=== PATIENT | male | born 1965 | race American Indian/Alaskan Native ===

== ENCOUNTER 2017-03-27 16:05 | Emergency (ER) | payer MEDICAID, MEDICARE, OTHER ==
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
[2017-03-27] MEDS ORDERED: HYDROmorphone 0.5 MG/0.5 ML Syringe IVPUSH ONE ×2 (16:45→18:31)
[2017-03-27] MEDS ORDERED: Sodium Chloride 0.9% 1,000 ML IV ONE ×2 (17:09→19:15)
[2017-03-27] MEDS ORDERED: Ondansetron 4 MG/2 ML SDV IVPUSH ONE (17:14)
[2017-03-27] MEDS ORDERED: Lidocaine 1% PF 2 ML SDV INJECT ONE (17:16)
[2017-03-27 19:26] VITALS: BP 112/67
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
== END 2017-03-27 19:40 ==
LOC: JP.ED 16:05
DX: S06.6X5A Traumatic subarachnoid hemorrhage with loss of consciousness greater than 24 hours with return to pre-existing conscious level, initial encounter (principal); S12.9XXA Fracture of neck, unspecified, initial encounter; S01.01XA Laceration without foreign body of scalp, initial encounter; S01.21XA Laceration without foreign body of nose, initial encounter; I10 Essential (primary) hypertension; Z90.49 Acquired absence of other specified parts of digestive tract; Z79.899 Other long term (current) drug therapy; V49.50XA Passenger injured in collision with unspecified motor vehicles in traffic accident, initial encounter
CPT/HCPCS: 12001; 12011; 70450; 72125; 73030; 96361; 96374; 96375; 96376; 99285; J1170; J2405; J7040

== ENCOUNTER 2017-04-24 20:32 | Emergency (ER) | payer MEDICARE, MEDICAID ==
[2017-04-24] MEDS ORDERED: Sodium Chloride 0.9% 10 ML Syringe FLUSH PRN (22:07)
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
[2017-04-24] MEDS: Sodium Chloride 0.9% 10 ML Syringe FLUSH PRN ×2 (23:24→23:32)
[2017-04-24] MEDS ORDERED: Iopamidol 612 MG/ML 150 ML Bottle IV SCH (23:30)
[2017-04-25] MEDS ORDERED: Magnesium Citrate Solution 296 ML Bottle PO ONE ×2 (00:35→00:46)
[2017-04-25 01:58] VITALS: BP 148/96
== END 2017-04-25 02:01 | disposition home or self-care (01) ==
LOC: JP.ED 20:32
DX: R18.8 Other ascites (principal); I10 Essential (primary) hypertension; Z86.69 Personal history of other diseases of the nervous system and sense organs; Z79.899 Other long term (current) drug therapy; Z90.49 Acquired absence of other specified parts of digestive tract
CPT/HCPCS: 36415; 74177; 80053; 81001; 85025; 86140; 99284; J7030; J7050; 99283

== ENCOUNTER 2017-04-26 06:53 | Day surgery (SDC) | payer MEDICAID, MEDICARE, OTHER ==
[2017-04-26 10:54] VITALS: BP 119/67
--- NOTE | 2017-05-04 18:41 | OR ---
DATE OF PROCEDURE: 04/26/2017 PREOPERATIVE DIAGNOSIS: Tense ascites. POSTOPERATIVE DIAGNOSIS: Tense ascites. PROCEDURE: Ultrasound-guided paracentesis ([id number]). ANESTHESIA: Local. CHERRY SORTER: FATUMA Castano. INDICATION FOR PROCEDURE: This is a 52-year-old male with some ongoing liver disease. He does appear to be fairly stable in this regard, although he had presented with quite a bit in the way of ascites. At this point, the plan is to proceed with ultrasound-guided thoracentesis. Potential risks of the procedure including bleeding, infection, injury to underlying viscera were reviewed, and the patient wishes to proceed. DESCRIPTION OF PROCEDURE: The patient was taken to the operating room and placed in a supine position. The site in the left mid abdomen was marked by ultrasound and that area was then prepped and draped, anesthetized with 1% lidocaine, and the paracentesis catheter was placed without difficulty, 4500 mL of clear serous nonbloody fluid was removed. Upon removal of that volume, a pursestring stitch of 2-0 Prolene stitch was placed around the puncture site, and the catheter was withdrawn. The suture was pulled up and tied and the procedure was then concluded. Fluid will be sent for cytology as well as for workup for microbiology, chemistries, and cell count differential. We will see the patient back in 1 week for suture removal. We discussed treatment options should this recur fairly rapidly. The patient's overall performance status is such that a peritoneal venous shunt may be a better [facility] treatment to prevent the risk of paracentesis as well as some attendant loss of protein and potential hepatorenal syndrome development due to episodes of dehydration associated with paracentesis. We will see the patient back in 1 week for recheck. Bimal Kramer MD /[id number]
== END 2017-04-26 10:00 | disposition home or self-care (01) ==
LOC: JP.SDS 06:53 → JP.ST 06:53 → JP.SDS 10:00 → EDSTATUS 13:00
PROVIDERS: ATTEND Surgery
DX: R18.8 Other ascites (principal); I10 Essential (primary) hypertension; E66.9 Obesity, unspecified; K21.9 Gastro-esophageal reflux disease without esophagitis; Z98.84 Bariatric surgery status; Z68.30 Body mass index [BMI] 30.0-30.9, adult; Z98.890 Other specified postprocedural states; Z90.49 Acquired absence of other specified parts of digestive tract
CPT/HCPCS: 36415; 49083; 82150; 82945; 83615; 83986; 84157; 87015; 87070; 87102; 87116; 87205; 87206; 88305; 88341; 88342; 89050

== ENCOUNTER 2017-05-09 15:59 | Inpatient (IN) | payer MEDICARE, MEDICAID ==
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
[2017-05-09] MEDS ORDERED: Iopamidol 612 MG/ML 150 ML Bottle IV PRN (18:43)
[2017-05-09] MEDS ORDERED: Ondansetron 4 MG/2 ML SDV IV PRN (20:56)
[2017-05-09] MEDS ORDERED: Furosemide 40 MG/4 ML VIAL IVPUSH ONE (21:10)
[2017-05-09] MEDS: oxyCODONE 5 MG Tab PO PRN (23:09)
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
[2017-05-10] MEDS ORDERED: Lactated Ringers 500 ML IV SCH (07:00)
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
[2017-05-10] MEDS: Pantoprazole 40 MG Vial IVPUSH SCH ×2 (08:22→19:24)
[2017-05-10] MEDS: Lisinopril 5 MG Tab PO SCH (08:25)
[2017-05-10] MEDS: Potassium Chloride 20 MEQ, Lidocaine 1% 2 ML in Sodium Chloride 0.9% 100 ML IV SCH ×3 (09:00→13:19)
[2017-05-10] MEDS: Simethicone 80 MG Tab.Chew PO PRN ×2 (14:55→19:24)
[2017-05-10] MEDS: oxyCODONE 5 MG Tab PO PRN ×2 (19:32→23:32)
[2017-05-11] MEDS: oxyCODONE 5 MG Tab PO PRN (03:38)
[2017-05-11] MEDS ORDERED: Lactated Ringers 1,000 ML IV SCH (06:45)
[2017-05-11] MEDS: Pantoprazole 40 MG Vial IVPUSH SCH ×2 (08:01→20:36)
[2017-05-11] MEDS: Lisinopril 5 MG Tab PO SCH (08:11)
[2017-05-11] MEDS ORDERED: ceFAZolin 1 GM Vial ONE (10:51)
[2017-05-11] MEDS ORDERED: Linezolid 600 MG in Premix Bag 1 BAG IV ONE (13:00)
[2017-05-11] MEDS ORDERED: Propofol 200 MG/20 ML SDV ONE (13:08)
[2017-05-11] MEDS ORDERED: Succinylcholine 200 MG/10 ML MDV ONE (13:08)
[2017-05-11] MEDS ORDERED: Dexamethasone 4 MG/ML SDV ONE (13:08)
[2017-05-11] MEDS ORDERED: Rocuronium 50 MG/5 ML Vial ONE (13:08)
[2017-05-11] MEDS ORDERED: Ondansetron 4 MG/2 ML SDV ONE (13:08)
[2017-05-11] MEDS ORDERED: Neostigmine Methylsulfate 1 MG/ML 5 ML Syringe ONE (13:08)
[2017-05-11] MEDS ORDERED: Glycopyrrolate 0.2 MG/ML 5 ML MDV ONE (13:08)
[2017-05-11] MEDS ORDERED: ePHEDrine 50 MG/ML SDV ONE (13:53)
[2017-05-11] MEDS ORDERED: Naloxone 0.4 MG/ML SDV IVPUSH PRN (14:15)
[2017-05-11] MEDS ORDERED: HYDROmorphone/Normal Saline 15 MG/30 ML PCA IV PRN (14:15)
[2017-05-11] MEDS ORDERED: Naloxone 0.4 MG/ML SDV IV PRN (14:17)
[2017-05-11] MEDS ORDERED: Linezolid 200 MG/100 ML Bag IRR ONE (14:38)
[2017-05-11] MEDS: Dextrose 5%-Lactated Ringers 1,000 ML IV SCH (17:47)
[2017-05-11] MEDS ORDERED: Furosemide 20 MG/2 ML VIAL IVPUSH ONE (18:00)
[2017-05-11] MEDS: Linezolid 600 MG in Premix Bag 1 BAG IV SCH (22:15)
[2017-05-12] MEDS: Dextrose 5%-Lactated Ringers 1,000 ML IV SCH (05:00)
[2017-05-12] MEDS ORDERED: Dextrose 5%-Lactated Ringers 1,000 ML IV SCH (07:29)
--- NOTE | 2017-05-12 08:57 | PN ---
DATE OF SERVICE: 05/12/2017 SUBJECTIVE: Yvon is postop day 1. He reports he is feeling better. He reports very little pain. Vital signs have been stable. He has been up ambulating. Reilly catheter has put out 6765 mL REVIEW OF SYSTEMS: Remainder of review of systems negative for any pertinent positives and negatives. OBJECTIVE: GENERAL: Yvon Beach is a pleasant 52-year-old male. VITAL SIGNS: TPR is 98.8, 100, 16, blood pressure 108/69. HEENT: Negative. NECK:: Supple. HEART: Regular rate and rhythm. LUNGS: Clear. ABDOMEN: [place] shunt was pushed by Bimal Kramer MD. He also showed Yvon how to push it and where it was. Abdomen has improved. It is soft, less tender. EXTREMITIES: Without peripheral edema and SCDs are on. ASSESSMENT: Placement of [place] peripheral venous shunt for tense ascites, refractory to medical management. Date of surgery 05/11/2017, Bimal Kramer MD. PLAN: 1. Push [place] shunt 6 times in a row q.i.d. 2. Step 4 gastric bypass diet. 3. Decrease IV to TKO. 4. Saline lock IV if oral intake adequate. 5. Discontinue BALE STACKER and continuous pulse ox. 6. Dilaudid 2 mg 1 to 2 every 4 hours p.r.n. pain. 7. Discontinue Reilly catheter in a.m. 05/13/2017 at 0500 hours. 8. Check CBC, CMP, and mag phos in a.m. 9. Reilly catheter was left in for accurate measurement of output. Юлия Clayton PA-C /[id number]
[2017-05-12] MEDS: Lisinopril 5 MG Tab PO SCH (08:59)
[2017-05-12] MEDS: Pantoprazole 40 MG Vial IVPUSH SCH ×2 (08:59→20:16)
[2017-05-12] MEDS: Linezolid 600 MG in Premix Bag 1 BAG IV SCH ×2 (11:45→22:30)
--- NOTE | 2017-05-12 12:24 | PN ---
DATE OF SERVICE: 05/11/2017 The patient has been afebrile with stable vital signs. The PT and PTT were checked and were within normal limits. We will plan to proceed with repair of a venous shunt insertion later today. Of note, his liver function tests have improved somewhat with bilirubin decreasing during the hospitalization. Bimal Kramer MD /[id number]
--- NOTE | 2017-05-12 16:51 | OR ---
DATE OF PROCEDURE: 05/11/2017 PREOPERATIVE DIAGNOSIS: Recurrent tense ascites, refractory to medical management. POSTOPERATIVE DIAGNOSIS: Recurrent tense ascites, refractory to medical management. PROCEDURE: Placement of [place] peritoneal venous shunt ([id number]). ANESTHESIA: General. INDICATION FOR PROCEDURE: This is a 52-year-old presenting with a markedly rapidly recurring tense ascites. This has been not manageable by medical management and plan to proceed with a peritoneal venous shunt. From the other considerations, the patient appears to be reasonably stable with his hepatic function improving somewhat during hospitalization with rehydration. Plan is to proceed with a peritoneal venous shunt. Potential risk including bleeding, infection, injury to underlying viscera, possible infection or occlusion of the shunt were all reviewed, and the patient wishes to proceed. DETAILS OF PROCEDURE: The patient was taken to the operating room and placed in the supine position. After general endotracheal anesthesia was induced, he was converted to a lithotomy position. Reilly catheter was inserted and the abdomen, chest and neck were then prepped and draped. Initially, the left internal jugular vein was identified by ultrasound and using ultrasound guidance, this was cannulated and guidewire was passed from there and inflated into the superior vena cava and atrial junction. Following this, a transverse incision along the costal margin in the midclavicular line was made and carried down through the skin and subcutaneous tissue. Initially, the needle was passed into the peritoneal cavity. Ultrasound showed this area to be free of any adhesions but for some reason no fluid could be aspirated. Given this, the incision was then continued downward until the peritoneal cavity was entered through an opening allowing the small finger of the surgeon to enter the peritoneal cavity. Free fluid was noted at this point and at that point a 16-Citizen [place] introducer was passed and directed inferiorly. Through this a guidewire was then similarly passed using fluoroscopic surveillance. The [place] shunt was then placed over the guidewire through the introducer and the latter 2 were then removed leaving the catheter in place. This appeared to curve backward somewhere towards the liver, but in a space likely draining the ascitic fluid very satisfactorily. At this point, the pursestring stitch x2 was placed around the point of entrance into the abdomen which occluded any leak at this point. Using a blunt dissection, then a space over the ribs superior to the initial incision was made and the [place] shunt was then tunneled superiorly, incision roughly handsbreadth below the clavicle as necessary and between those 2 incisions the catheter was brought out through the internal jugular incision site. At that point 2 L of ascitic fluid was removed so as to minimize immediate postoperative complications related to fluid overload and/or DIC. After 2 L removed, there was trickle through the [place] shunt. Using introducer and peel-away catheter over the guidewire placed in jugular vein, the venous portion of the catheter was placed without difficulty. This had been measured as such that the tip would be in the area of the superior vena cava, right atrial junction and fluoroscopy confirmed that location noted to be achieved at the final placement. The incisions were then closed with a series of 3-0, 4-0, 5-0 Vicryl stitches and Dermabond applied. The point of the pump over the [place] shunt was marked and this was confirmed to as well as with fluid rapidly after release of the thumb over the pump. The patient was taken to the recovery room in satisfactory condition. There were no evident complications. Bimal Kramer MD /[id number]
[2017-05-12] MEDS: diphenhydrAMINE 25 MG Cap PO PRN (20:50)
[2017-05-13] MEDS: Pantoprazole 40 MG Vial IVPUSH SCH ×2 (08:02→20:28)
[2017-05-13] MEDS: HYDROmorphone 2 MG Tab PO PRN ×3 (08:11→21:41)
[2017-05-13] MEDS: Lisinopril 5 MG Tab PO SCH (09:43)
[2017-05-13] MEDS: Potassium Phosphates 20 MMOLE in Sodium Chloride 0.9% 250 ML IV SCH ×3 (10:04→16:25)
--- NOTE | 2017-05-13 10:05 | PN ---
DATE OF SERVICE: 05/13/2017 SUBJECTIVE: Yvon reports his pain is controlled. He states that he is feeling better. Staff has taught him how to use his shunt. Vital signs have been stable. REVIEW OF SYSTEMS: Remainder of review of systems negative for any pertinent positives and negatives. His Reilly catheter was removed early this morning and he has not voided at time of rounds. OBJECTIVE: GENERAL: Yvon Beach is a 52-year-old male. VITAL SIGNS: TPR is 98.6, 93, 18, blood pressure 111/65. HEENT: Negative. NECK: Supple. HEART: Regular rate and rhythm. LUNGS: Clear. ABDOMEN: Soft, very minimally tender. EXTREMITIES: SCDs are on and there is no peripheral edema. ASSESSMENT: Placement of [place] peritoneovenous shunt for recurrent tense ascites, refractory to medical management. PLAN: 1. K-Phos 60 millimoles IV today. 2. Check BMP and phos in the a.m. Continue the patient education in regard to [place] peritoneovenous shunt. 3. Planned discharge in the a.m. Юлия Clayton PA-C /[id number]
[2017-05-13] MEDS: Linezolid 600 MG in Premix Bag 1 BAG IV SCH (11:07)
[2017-05-13] MEDS: diphenhydrAMINE 25 MG Cap PO PRN (21:42)
[2017-05-14] MEDS: Pantoprazole 40 MG Vial IVPUSH SCH (07:24)
[2017-05-14 08:03] VITALS: BP 111/65
[2017-05-14] MEDS: Lisinopril 5 MG Tab PO SCH (08:32)
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
== END 2017-05-14 10:45 | disposition home or self-care (01) | DRG 407 ==
LOC: JP.ED 15:59 → UNDOADMOB 21:11 → JP.MS 21:11 → OBSVTOIN 05-10 07:00 → INTOOBSV 05-10 07:00 → OBSVTOIN 05-11 10:58 → JP.MS 05-11 10:58 → UNDODISIN 05-14 10:45
PROVIDERS: ADMIT Family Medicine; ATTEND Surgery
PROC: 0W1G4JY Bypass Peritoneal Cavity to Lower Vein with Synthetic Substitute, Percutaneous Endoscopic Approach (ICD-10-PCS; principal; 2017-05-11)
DX: K70.31 Alcoholic cirrhosis of liver with ascites (principal); F10.11 Alcohol abuse, in remission; Y90.9 Presence of alcohol in blood, level not specified; I10 Essential (primary) hypertension; R60.1 Generalized edema; D69.6 Thrombocytopenia, unspecified; Z86.79 Personal history of other diseases of the circulatory system; S12.9XXD Fracture of neck, unspecified, subsequent encounter; S42.101D Fracture of unspecified part of scapula, right shoulder, subsequent encounter for fracture with routine healing; S82.891D Other fracture of right lower leg, subsequent encounter for closed fracture with routine healing; S22.009D Unspecified fracture of unspecified thoracic vertebra, subsequent encounter for fracture with routine healing; R14.0 Abdominal distension (gaseous); R10.84 Generalized abdominal pain; V89.2XXD Person injured in unspecified motor-vehicle accident, traffic, subsequent encounter; K21.9 Gastro-esophageal reflux disease without esophagitis; M54.9 Dorsalgia, unspecified; G89.29 Other chronic pain; M19.90 Unspecified osteoarthritis, unspecified site; Z98.1 Arthrodesis status; Z98.84 Bariatric surgery status; H54.7 Unspecified visual loss; F10.10 Alcohol abuse, uncomplicated
CPT/HCPCS: 36415 ×2; 74177; 80048; 80053; 80076; 83690; 83880; 85025; 85027; 85610; 86850; 86900; 86901; 86920; 86922; 96365; 96366; 96375 ×2; 96376; 99285; A9270; G0378; J1940; J7030; 76000; 83735; 84100; 85730; 94762; 96361; 96374; 99284; C9113; J0330; J0690; J1100; J1170; J2020; J2405; J2704; J2710; J3010; J3480; J3490; J7042; J7050

== ENCOUNTER 2017-05-30 08:08 | Emergency (ER) | payer MEDICARE, MEDICAID ==
[2017-05-30 08:32] VITALS: BP 115/85
[2017-05-30] MEDS ORDERED: oxyCODONE 5 MG Tab PO ONE (08:47)
--- NOTE | 2017-05-30 08:54 | EDM.PDOC ---
ED HPI GENERAL MEDICAL PROBLEM - General Chief Complaint: General Stated Complaint: NECK IS SORE AND A WOUND ON NECK Time Seen by Provider: 05/30/17 08:35 Source of Information: Reports: Patient, Old Records, RN History Limitations: Reports: No Limitations - History of Present Illness INITIAL COMMENTS - FREE TEXT/NARRATIVE: 52 yo NA male with recent neck and spine surgery(within the last 2 mos) and who is wearing a neck brace presents with swelling to the back of his neck associated with an increase in pain. Has known liver dz and recent labs also show thrombocytopenia. He denies any recent injury to the neck since his surgery. Has follow up with the surgeon who operated on his spine in 2 days [place], he cannot recall this doctor's name. Has oxycodone left at home. Onset: Gradual Onset Date: 05/29/17 Duration: Hour(s):, Getting Worse Location: Reports: Neck Quality: Reports: Ache, Dull Severity: Moderate Improves with: Reports: None Worsens with: Reports: Other (? 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: Reports: Other (see below) (none) NECK Pain Score (Numeric/FACES): 6 - Related Data Allergies Allergy/AdvReac Type Severity Reaction Status Date / Time No Known Allergies Allergy Verified 05/30/17 08:33 Home Meds: Home Meds Lisinopril 5 mg PO DAILY 08/04/14 [History] Ranitidine [Zantac] 150 mg PO DAILY 04/24/17 [History] oxyCODONE 5 mg PO Q4H PRN #40 tablet 05/14/17 [Rx] traMADol HCl [Tramadol HCl] 50 mg PO Q4HR PRN 05/30/17 [History] Past Medical History HEENT History: Reports: Impaired Vision Other HEENT History: glasses Cardiovascular History: Reports: Hypertension Respiratory History: Reports: None Gastrointestinal History: Reports: Gastritis, GERD Genitourinary History: Reports: Renal Calculus Musculoskeletal History: Reports: Back Pain, Chronic, Fracture, Neck Pain, Chronic, Osteoarthritis, Other (See Below) Other Musculoskeletal History: Crushed disc in lumbar area neck fusion aprox 3 weeks ago. Neurological History: Reports: Brain Injury, Concussion, Head Trauma Psychiatric History: Reports: None Endocrine/Metabolic History: Reports: Obesity/BMI 30+ Hematologic History: Reports: Blood Transfusion(s) Immunologic History: Reports: None Oncologic (Cancer) History: Reports: None Dermatologic History: Reports: None - Infectious Disease History Infectious Disease History: Reports: Chicken Pox - Past Surgical History Head Surgeries/Procedures: Reports: Other (See Below) HEENT Surgical History: Reports: None Cardiovascular Surgical History: Reports: None Respiratory Surgical History: Reports: None GI Surgical History: Reports: Bariatric Procedure, Cholecystectomy, Colonoscopy , EGD, Other (See Below) Other GI Surgeries/Procedures: paracentesis Endocrine Surgical History: Reports: None Neurological Surgical History: Reports: Other (See Below) Other Neurological Surgeries/Procedures: "neck surgery" Other Musculoskeletal Surgeries/Procedures:: Pins in left hip and right wrist Oncologic Surgical History: Reports: None Dermatological Surgical History: Reports: None Social & Family History - Family History Family Medical History: Noncontributory - Tobacco Use Smoking Status *Q: Never Smoker Second Hand Smoke Exposure: Yes - Caffeine Use Caffeine Use: Reports: Soda - Alcohol Use Days Per Week of Alcohol Use: 0 Number of Drinks Per Day: 2 Total Drinks Per Week: 0 - Recreational Drug Use Recreational Drug Use: No ED ROS GENERAL - Review of Systems Review Of Systems: See Below Constitutional: Reports: No Symptoms HEENT: Reports: No Symptoms Respiratory: Reports: No Symptoms Cardiovascular: Reports: No Symptoms Endocrine: Reports: No Symptoms GI/Abdominal: Reports: No Symptoms : Reports: No Symptoms Musculoskeletal: Reports: Neck Pain (posteriorly) Skin: Reports: No Symptoms Neurological: Reports: No Symptoms Psychiatric: Reports: No Symptoms ED EXAM, GENERAL - Physical Exam Exam: See Below Exam Limited By: No Limitations General Appearance: Alert, WD/WN, No Apparent Distress Eye Exam: Bilateral Eye: Normal Inspection Ears: Normal External Exam, Normal Canal, Hearing Grossly Normal Ear Exam: Bilateral Ear: Auricle Normal, Canal Normal Nose: Normal Inspection, Normal Mucosa, No Blood Throat/Mouth: Normal Inspection, Normal Lips, Normal Oropharynx, Normal Voice, No Airway Compromise Head: Atraumatic, Normocephalic Neck: Limited Range of Motion, Other (hematoma to the posterior/base of his neck. Well healed surgical scar from the neck posteriorly down his thoracic spine. Bruising to the upper back below the neck hematoma. ). No: Normal Inspection, Supple, Full Range of Motion, Lymphadenopathy (R), Lymphadenopathy ( L) Respiratory/Chest: No Respiratory Distress, Lungs Clear, Normal Breath Sounds, No Accessory Muscle Use Cardiovascular: Regular Rate, Rhythm GI/Abdominal: Normal Bowel Sounds, Soft, Non-Tender Extremities: Normal Inspection, Normal Range of Motion, Non-Tender, No Pedal Edema Neurological: Alert, Oriented, CN II-XII Intact, Normal Cognition, No Motor/ Sensory Deficits Psychiatric: Normal Affect, Normal Mood Skin Exam: Warm, Dry, Intact, No Rash, Ecchymosis (upper back) Lymphatic: No Adenopathy Course - Vital Signs Last Recorded V/S: Last Vital Signs Temp 36.8 C 05/30/17 08:30 Pulse 98 05/30/17 08:30 Resp 16 05/30/17 08:30 BP 115/85 05/30/17 08:30 Pulse Ox 100 05/30/17 08:30 - Orders/Labs/Meds Labs: Laboratory Tests 05/30/17 05/30/17 Range/Units 08:50 08:50 WBC 12.1 H (4.5-11.0) K/uL RBC 3.40 L (4.30-5.90) M/uL Hgb 10.7 L (12.0-15.0) g/dL Hct 32.5 L (40.0-54.0) % MCV 96 (80-98) fL MCH 32 H (27-31) pg MCHC 33 (32-36) % Plt Count 130 L (150-400) K/uL PT 20.2 H (9.5-12.0) sec INR 1.84 H (0.80-1.20) APTT 41.1 H (27.0-36.0) sec Meds: Medications Discontinued Medications Generic Name Dose Route Start Last Admin Trade Name Freq PRN Reason Stop Dose Admin Oxycodone HCl 5 mg 05/30/17 08:47 05/30/17 08:53 Oxycodone PO 05/30/17 08:48 5 mg ONETIME ONE Administration Departure - Departure Time of Disposition: 09:37 Disposition: Home, Self-Care 01 Condition: Fair Clinical Impression: Hematoma of neck Qualifiers: Encounter type: initial encounter Qualified Code(s): S10.93XA - Contusion of unspecified part of neck, initial encounter - Discharge Information Referrals: Bimal Kramer MD [Primary Care Provider] - Forms: ED Department Discharge
== END 2017-05-30 10:00 | disposition home or self-care (01) ==
LOC: JP.ED 08:08
DX: S10.93XA Contusion of unspecified part of neck, initial encounter (principal); I10 Essential (primary) hypertension; K21.9 Gastro-esophageal reflux disease without esophagitis; Z79.899 Other long term (current) drug therapy; Z98.890 Other specified postprocedural states; Z77.22 Contact with and (suspected) exposure to environmental tobacco smoke (acute) (chronic); X58.XXXA Exposure to other specified factors, initial encounter
CPT/HCPCS: 36415; 85027; 85610; 85730; 99284; A9270; 99283

== ENCOUNTER 2017-06-02 13:48 | Inpatient (IN) | payer MEDICARE, MEDICAID ==
[2017-06-02] MEDS ORDERED: Dextrose 5%-Lactated Ringers 1,000 ML IV SCH (14:30)
[2017-06-02] MEDS: Linezolid 600 MG in Premix Bag 1 BAG IV SCH (15:03)
[2017-06-02] MEDS ORDERED: Lactated Ringers 500 ML IV ONE (15:59)
[2017-06-02] MEDS: Pantoprazole 40 MG Vial IV SCH (16:11)
[2017-06-02] MEDS: Dextrose 5%-Lactated Ringers 1,000 ML IV SCH ×2 (17:11→22:44)
--- NOTE | 2017-06-02 19:39 | PCM.HP ---
H&P History of Present Illness - General Date of Service: 06/02/17 Admit Problem/Dx: Admission Diagnosis/Problem Admission Diagnosis/Problem Wound drainage Source of Information: Patient History Limitations: Reports: Other (weak ) - History of Present Illness Initial Comments - Free Text/Narative: Yvon had a Percutaneous [place] Shunt. He developed a clear drainage from the incision site for about 1 week. His mom is with him today and states that the drainage is going through the dressing, abdominal binder and his clothes about every 2 hours. - Related Data Allergies/Adverse Reactions: Allergies Allergy/AdvReac Type Severity Reaction Status Date / Time No Known Allergies Allergy Verified 05/30/17 08:33 Home Medications: Home Meds Lisinopril 5 mg PO DAILY 08/04/14 [History] Ranitidine [Zantac] 150 mg PO DAILY 04/24/17 [History] oxyCODONE 5 mg PO Q4H PRN #40 tablet 05/14/17 [Rx] traMADol HCl [Tramadol HCl] 50 mg PO Q4HR PRN 05/30/17 [History] Past Medical History HEENT History: Reports: Impaired Vision Other HEENT History: glasses Cardiovascular History: Reports: Hypertension Respiratory History: Reports: None Gastrointestinal History: Reports: Gastritis, GERD Genitourinary History: Reports: Renal Calculus Musculoskeletal History: Reports: Back Pain, Chronic, Fracture, Neck Pain, Chronic, Osteoarthritis, Other (See Below) Other Musculoskeletal History: Crushed disc in lumbar area neck fusion aprox 3 weeks ago. Neurological History: Reports: Brain Injury, Concussion, Head Trauma Psychiatric History: Reports: None Endocrine/Metabolic History: Reports: Obesity/BMI 30+ Hematologic History: Reports: Blood Transfusion(s) Immunologic History: Reports: None Oncologic (Cancer) History: Reports: None Dermatologic History: Reports: None - Infectious Disease History Infectious Disease History: Reports: Chicken Pox - Past Surgical History Head Surgeries/Procedures: Reports: Other (See Below) HEENT Surgical History: Reports: None Cardiovascular Surgical History: Reports: None Respiratory Surgical History: Reports: None GI Surgical History: Reports: Bariatric Procedure, Cholecystectomy, Colonoscopy , EGD, Other (See Below) Other GI Surgeries/Procedures: paracentesis Endocrine Surgical History: Reports: None Neurological Surgical History: Reports: Other (See Below) Other Neurological Surgeries/Procedures: "neck surgery" Other Musculoskeletal Surgeries/Procedures:: Pins in left hip and right wrist Oncologic Surgical History: Reports: None Dermatological Surgical History: Reports: None Social & Family History - Family History Family Medical History: Noncontributory - Tobacco Use Smoking Status *Q: Never Smoker Second Hand Smoke Exposure: No - Caffeine Use Caffeine Use: Reports: Coffee, Soda, Tea - Alcohol Use Days Per Week of Alcohol Use: 0 Number of Drinks Per Day: 2 Total Drinks Per Week: 0 Date of Last Drink: 03/22/17 Time of Last Drink: 21:00 - Recreational Drug Use Recreational Drug Use: No H&P Review of Systems - Review of Systems: Review Of Systems: See Below General: Reports: Weakness, Fatigue, Decreased Appetite HEENT: Reports: No Symptoms Pulmonary: Reports: Shortness of Breath Gastrointestinal: Reports: Abdominal Pain, Decreased Appetite, Distension Genitourinary: Reports: Hematuria Musculoskeletal: Reports: Joint Pain, Muscle Pain Skin: Reports: Bruising (several small purple bruises noted on his extremities. Entire back has a purple bruising. ) Psychiatric: Reports: No Symptoms Neurological: Reports: No Symptoms Hematologic/Lymphatic: Reports: Anemia, Easy Bruising Immunologic: Reports: No Symptoms Exam - Exam Exam: See Below - Vital Signs Vital Signs: Last Vital Signs Temp 96.6 F 06/02/17 18:47 Pulse 103 H 06/02/17 18:47 Resp 18 06/02/17 18:47 BP 80/50 L 06/02/17 18:47 Pulse Ox 97 06/02/17 18:47 Weight: 224 lb 4 oz - Exam Quality Assessment: DVT Prophylaxis General: Alert, Oriented, Cooperative HEENT: PERRLA, Hearing Intact Neck: Other (neck brace on ) Lungs: Clear to Auscultation, Normal Respiratory Effort Cardiovascular: Regular Rate, Regular Rhythm GI/Abdominal Exam: Soft, Distended, Other (open incision 2 inches on left side of abdomen draining clear yellow drainage. ) (Male) Exam: Deferred Rectal (Males) Exam: Deferred Back Exam: Other (entire back has a large purple area of bruising. Small hematoma upper back. ) Extremities: Normal Inspection, Pedal Edema Neuro Extensive - Mental Status: Alert, Oriented x3 Neuro Extensive - Motor, Sensory, Reflexes: CN II-XII Intact, Other (Weak and unsteady ) Psychiatric: Alert - Patient Data Result Diagrams: 06/02/17 19:14 *Q Meaningful Use (ADM) - VTE *Q VTE Criteria *Q: - Stroke *Q Stroke Criteria *Q: - AMI *Q AMI Criteria *Q: Problem List Initiated/Reviewed/Updated: Yes Orders Last 24hrs: Active Orders 24 hr Category Date Time Status Admission Status [Patient Status] [ADT] Routine ADT 06/02/17 13:30 Active Dressing Change [Wound Care] [RC] INTERMITTENT Care 06/02/17 14:45 Active Intake and Output [RC] QSHIFT Care 06/02/17 14:45 Active Up ad Lisa [RC] ASDIRECTED Care 06/02/17 14:37 Active Verify Patient Consent Obtain [RC] ASDIRECTED Care 06/03/17 09:00 Active Vital Signs [RC] Q4H Care 06/02/17 14:37 Active NPO After Midnight [Nothing per Oral After Midnight Diet 06/02/17 Dinner Active Diet] [DIET] Regular Diet [DIET] Diet 06/02/17 Dinner Active CBC W/O DIFF,HEMOGRAM [HEME] Routine Lab 06/03/17 04:00 Ordered COMPREHENSIVE METABOLIC PN,CMP [CHEM] Routine Lab 06/02/17 19:14 Received COMPREHENSIVE METABOLIC PN,CMP [CHEM] Routine Lab 06/03/17 04:00 Ordered CULTURE URINE [RM] Urgent Lab 06/02/17 14:40 Uncollected LACTIC ACID [CHEM] Routine Lab 06/02/17 19:14 Received MAGNESIUM [CHEM] Routine Lab 06/03/17 04:00 Ordered PHOSPHORUS [CHEM] Routine Lab 06/03/17 04:00 Ordered UA W/MICROSCOPIC [URIN] Urgent Lab 06/02/17 14:39 Uncollected Dextrose 5%-Lactated Ringers 1,000 ml Med 06/02/17 16:15 Active IV ASDIRECTED Linezolid [Zyvox] 600 mg Med 06/02/17 16:00 Active Premix Bag 1 bag IV Q12H Lisinopril [Prinivil] Med 06/03/17 09:00 Active 10 mg PO DAILY Pantoprazole [ProTONIX IV] Med 06/02/17 16:00 Active 40 mg IV Q24H Code Status [Resuscitation Status] Routine Resus Stat 06/02/17 14:36 Ordered Medication Orders Linezolid 600 mg/ Premix 300 mls @ 300 mls/hr IV Q12H DAVID Last Admin: 06/02/17 15:03 Dose: 300 mls/hr Dextrose/Lactated Ringer's (Dextrose 5%-Lactated Ringers) 1,000 mls @ 150 mls/ hr IV ASDIRECTED [facility], [facility]–1983 Last Admin: 06/02/17 17:11 Dose: 150 mls/hr Lisinopril (Prinivil) 10 mg PO DAILY [facility]1983 Pantoprazole Sodium (Protonix Iv) 40 mg IV Q24H DAVID Last Admin: 06/02/17 16:11 Dose: 40 mg Assessment/Plan Comment:: Assessment: Incision Dehiscence [place] Shunt for Ascites Cirrhosis of liver Plan: Admit to Inpatient - plan of hospitalization is 2 nights and 3 days. Schedule and have consent signed for Removal of [place] Shunt 06/03/17 - General Anesthesia - Bimal Kramer MD - NPO after MN See copy of orders in EMR. Юлия Owens
[2017-06-02] MEDS ORDERED: Sodium Chloride 0.9% 1,000 ML IV ONE ×2 (20:06→21:08)
[2017-06-02] MEDS ORDERED: Lidocaine 2% Jelly 10 ML Urojet MUCMEM ONE (20:18)
[2017-06-03] MEDS ORDERED: Lactated Ringers 1,000 ML IV SCH (00:30)
[2017-06-03] MEDS: Sodium Chloride 0.9% 1,000 ML IV ONE ×2 (03:00→04:31)
[2017-06-03] MEDS ORDERED: Hydrocortisone Sodium Succinate 100 MG/2 ML SDV IVPUSH ONE (04:02)
[2017-06-03] MEDS ORDERED: Dextrose 5% in Water 250 ML ONE (04:10)
[2017-06-03] MEDS ORDERED: Sodium Chloride 0.9% 500 ML IV SCH (04:15)
[2017-06-03] MEDS: Norepinephrine 4 MG in Dextrose 5% in Water 246 ML IV SCH ×6 (04:22→21:19)
--- NOTE | 2017-06-03 04:24 | PCM.CONS ---
H&P History of Present Illness - General Date of Service: 06/03/17 Admit Problem/Dx: Admission Diagnosis/Problem Admission Diagnosis/Problem Wound drainage Source of Information: Patient, RN History Limitations: Reports: No Limitations - History of Present Illness Initial Comments - Free Text/Narative: Yvon was admitted yesterday for [place] shunt removal after it was noted to be draining purulent material. I was asked to see him early this morning by Dr. Kramer regarding hypotension. He has been hypotensive since arrival. Lactic acid level last night was 4.4. Blood pressures have trended down despite fluid boluses throughout the night. Currently the patient reports that in general he' s doing fairly well. He does have moderate pain in the area of the [place] shunt. This is achy in nature and does not radiate. Pain medications have helped some. Moving around and the pressure from the abdominal binder makes the pain worse. He's had low-grade temperature elevations throughout the night. No complaints of nausea or shortness of breath. No abdominal pain other than over the shunt in the left upper quadrant. He does note some left elbow discomfort as well as a large bruise covering much of his back which has been present for 3 -4 days. Generalized Pain Score (Numeric/FACES): 3 - Related Data Allergies/Adverse Reactions: Allergies Allergy/AdvReac Type Severity Reaction Status Date / Time No Known Allergies Allergy Verified 05/30/17 08:33 Home Medications: Home Meds Lisinopril 5 mg PO DAILY 08/04/14 [History] Ranitidine [Zantac] 150 mg PO DAILY 04/24/17 [History] oxyCODONE 5 mg PO Q4H PRN #40 tablet 05/14/17 [Rx] traMADol HCl [Tramadol HCl] 50 mg PO Q4HR PRN 05/30/17 [History] Past Medical History HEENT History: Reports: Impaired Vision Other HEENT History: glasses Cardiovascular History: Reports: Hypertension Respiratory History: Reports: None Gastrointestinal History: Reports: Gastritis, GERD Genitourinary History: Reports: Renal Calculus Musculoskeletal History: Reports: Back Pain, Chronic, Fracture, Neck Pain, Chronic, Osteoarthritis, Other (See Below) Other Musculoskeletal History: Crushed disc in lumbar area neck fusion aprox 3 weeks ago. Neurological History: Reports: Brain Injury, Concussion, Head Trauma Psychiatric History: Reports: None Endocrine/Metabolic History: Reports: Obesity/BMI 30+ Hematologic History: Reports: Blood Transfusion(s) Immunologic History: Reports: None Oncologic (Cancer) History: Reports: None Dermatologic History: Reports: None - Infectious Disease History Infectious Disease History: Reports: Chicken Pox - Past Surgical History Head Surgeries/Procedures: Reports: Other (See Below) HEENT Surgical History: Reports: None Cardiovascular Surgical History: Reports: None Respiratory Surgical History: Reports: None GI Surgical History: Reports: Bariatric Procedure, Cholecystectomy, Colonoscopy , EGD, Other (See Below) Other GI Surgeries/Procedures: paracentesis Endocrine Surgical History: Reports: None Neurological Surgical History: Reports: Other (See Below) Other Neurological Surgeries/Procedures: "neck surgery" Other Musculoskeletal Surgeries/Procedures:: Pins in left hip and right wrist Oncologic Surgical History: Reports: None Dermatological Surgical History: Reports: None Social & Family History - Family History Family Medical History: Noncontributory - Tobacco Use Smoking Status *Q: Never Smoker Second Hand Smoke Exposure: No - Caffeine Use Caffeine Use: Reports: Coffee, Soda, Tea - Alcohol Use Days Per Week of Alcohol Use: 0 Number of Drinks Per Day: 2 Total Drinks Per Week: 0 Date of Last Drink: 03/22/17 Time of Last Drink: 21:00 - Recreational Drug Use Recreational Drug Use: No H&P Review of Systems - Review of Systems: Review Of Systems: See Below Free Text/Narrative: A complete 12 point review of systems was obtained. Pertinent positives and negatives are noted in the history of present illness. All other systems were reviewed and were negative except as noted. Exam - Exam Exam: See Below - Vital Signs Vital Signs: Last Vital Signs Temp 38.0 C 06/03/17 04:00 Pulse 92 06/03/17 04:00 Resp 18 06/03/17 04:00 BP 57/27 L 06/03/17 04:00 Pulse Ox 95 06/03/17 04:00 Weight: 101.718 kg - Exam Quality Assessment: Supplemental Oxygen General: Alert, Cooperative. No: Mild Distress HEENT: Conjunctiva Clear. No: Mucosa Moist & [place] (dry), Scleral Icterus Neck: Supple, Trachea Midline. No: Lymphadenopathy Lungs: Clear to Auscultation, Normal Respiratory Effort. No: Wheezing Cardiovascular: Regular Rhythm, Tachycardia, Systolic Murmur GI/Abdominal Exam: Normal Bowel Sounds, Soft, Distended (mild), Tender (mild LUQ ), Other (shunt incision in LUQ with mild purulent drainage) Back Exam: Other (Massive ecchymosis over most of his back). No: Full Range of Motion Extremities: No Pedal Edema, Other (Left elbow tender but normal range of motion. Not warm or swollen). No: Increased Warmth Peripheral Pulses: 1+: Radial (L), Radial (R) Skin: Warm, Dry, Ecchymosis (Most of his back) Neurological: Normal Tone Neuro Extensive - Mental Status: Alert, Normal Mood/Affect, Nl Response to Commands Neuro Extensive - Motor, Sensory, Reflexes: CN II-XII Intact. No: Dysarthria, Abnormal Motor, Tremor Psychiatric: Alert, Normal Affect - Patient Data Lab Results Last 24 hrs: Laboratory Results - last 24 hr 06/02/17 06/02/17 06/02/17 Range/Units 19:14 19:14 20:41 Sodium 122 L (140-148) mmol/L Potassium 3.7 (3.6-5.2) mmol/L Chloride 92 L (100-108) mmol/L Carbon Dioxide 19 L (21-32) mmol/L Anion Gap 14.7 H (5.0-14.0) mmol/L BUN 34 H D (7-18) mg/dL Creatinine 2.5 H D (0.8-1.3) mg/dL Est Cr Clr Drug Dosing 35.28 mL/min Estimated GFR (MDRD) 27 L (>60) Glucose 94 (74-106) mg/dL Lactic Acid 4.4 H (0.4-2.0) mmol/L Calcium 7.2 L (8.5-10.1) mg/dL Total Bilirubin 4.0 H D (0.2-1.0) mg/dL AST 50 H (15-37) U/L ALT 23 (12-78) U/L Alkaline Phosphatase 111 (46-116) U/L Total Protein 4.8 L (6.4-8.2) g/dL Albumin 1.4 L (3.4-5.0) g/dL Globulin 3.4 (2.3-3.5) g/dL Albumin/Globulin Ratio 0.4 L (1.2-2.2) Urine Color Yellow Urine Appearance Clear Urine pH 7.0 (4.5-8.0) Ur Specific [place] 1.010 (1.008-1.030) Urine Protein Negative (NEGATIVE) mg/dL Urine Glucose (UA) Normal (NEGATIVE) mg/dL Urine Ketones Negative (NEGATIVE) mg/dL Urine Occult Blood Negative (NEGATIVE) Urine Nitrite Negative (NEGAITVE) Urine Bilirubin Small (NEGATIVE) Urine Urobilinogen 4 (NORMAL) mg/dL Ur Leukocyte Esterase Negative (NEGATIVE) Urine RBC 0-5 (0-5) Urine WBC 5-10 H (0-5) Ur Epithelial Cells Few Amorphous Sediment Moderate Urine Bacteria Many Urine Mucus Few Result Diagrams: 06/02/17 19:14 Consult PN Assessment/Plan Procedures: Procedures ABD PARACENTESIS W/IMAGING (04/26/17) ASSAY OF AMYLASE (04/26/17) ASSAY OF CK (CPK) (08/04/14) ASSAY OF ETHANOL (08/04/14) ASSAY OF LACTIC ACID (08/04/14) ASSAY OF LIPASE (05/10/17) ASSAY OF MAGNESIUM (05/10/17) ASSAY OF NATRIURETIC PEPTIDE (05/10/17) ASSAY OF PHOSPHORUS (05/10/17) ASSAY OF PROTEIN OTHER (04/26/17) ASSAY OF TROPONIN QUANT (08/04/14) ASSAY PH BODY FLUID NOS (04/26/17) BLOOD TYPING SEROLOGIC ABO (05/10/17) BLOOD TYPING SEROLOGIC RH(D) (05/10/17) BODY FLUID CELL COUNT (04/26/17) C-REACTIVE PROTEIN (04/24/17) CHEST X-RAY 1 VIEW FRONTAL (08/04/14) COMPATIBILITY TEST ANTIGLOB (05/10/17) COMPATIBILITY TEST SPIN (05/10/17) COMPLETE CBC AUTOMATED (05/30/17) COMPLETE CBC W/AUTO DIFF WBC (05/10/17) COMPREHEN METABOLIC PANEL (05/10/17) CREATINE MB FRACTION (08/04/14) CT ABD & PELV W/CONTRAST (05/10/17) CT HEAD/BRAIN W/O DYE (03/27/17) CT NECK SPINE W/O DYE (03/27/17) CULTURE OTHR SPECIMN AEROBIC (04/26/17) ELECTROCARDIOGRAM TRACING (08/04/14) EMERGENCY DEPT VISIT (05/30/17) EMERGENCY DEPT VISIT (05/10/17) EMERGENCY DEPT VISIT (04/24/17) EMERGENCY DEPT VISIT (03/27/17) EMERGENCY DEPT VISIT (06/06/15) EMERGENCY DEPT VISIT (08/04/14) EMERGENCY DEPT VISIT (08/04/14) EMERGENCY DEPT VISIT (12/01/13) EMERGENCY DEPT VISIT (12/01/13) EMERGENCY DEPT VISIT (08/05/13) EMERGENCY DEPT VISIT (07/19/13) FLUOROSCOPE EXAMINATION (05/10/17) FUNGUS ISOLATION CULTURE (04/26/17) GLUCOSE OTHER FLUID (04/26/17) HEPATIC FUNCTION PANEL (05/10/17) HYDRATE IV INFUSION ADD-ON (05/10/17) IMMUNIZATION ADMIN (07/19/13) IMMUNOHISTO ANTB 1ST STAIN (04/26/17) IMMUNOHISTO ANTIBODY SLIDE (04/26/17) INTMD RPR FACE/MM 2.5 CM/< (07/19/13) LACTATE (LD) (LDH) ENZYME (04/26/17) MEASURE BLOOD OXYGEN LEVEL (05/10/17) METABOLIC PANEL TOTAL CA (05/10/17) MYCOBACTERIA CULTURE (04/26/17) PROTHROMBIN TIME (05/30/17) RBC ANTIBODY SCREEN (05/10/17) ROUTINE VENIPUNCTURE (05/30/17) RPR F/E/E/N/L/M 2.5 CM/< (03/27/17) RPR S/N/AX/GEN/TRNK 2.5CM/< (03/27/17) SMEAR FLUORESCENT/ACID STAI (04/26/17) SMEAR GRAM STAIN (04/26/17) SPECIMEN INFECT AGNT CONCNTJ (04/26/17) TDAP VACCINE 7 YRS/> IM (07/19/13) THER/PROPH/DIAG INJ IV PUSH (03/27/17) THER/PROPH/DIAG INJ SC/IM (06/06/15) THER/PROPH/DIAG IV INF ADDON (05/10/17) THER/PROPH/DIAG IV INF INIT (05/10/17) THROMBOPLASTIN TIME PARTIAL (05/30/17) TISSUE EXAM BY PATHOLOGIST (04/26/17) TX/PRO/DX INJ NEW DRUG ADDON (05/10/17) TX/PRO/DX INJ SAME DRUG GUM MACHINE FILLER (05/10/17) URINALYSIS AUTO W/SCOPE (04/24/17) X-RAY EXAM OF ELBOW (08/05/13) X-RAY EXAM OF FOREARM (08/05/13) X-RAY EXAM OF HUMERUS (08/05/13) X-RAY EXAM OF SHOULDER (03/27/17) X-RAY EXAM THORAC SPINE 3VWS (06/04/15) X-RAY EXAM UNILAT RIBS/CHEST (10/10/14) Problem List Initiated/Reviewed/Updated: Yes My Orders Last 24 Hours: My Active Orders 06/03/17 04:02 LACTIC ACID [CHEM] Routine 06/03/17 04:15 Norepinephrine [Levophed] 4 mg Dextrose 5% in Water 246 ml IV TITRATE Sodium Chloride 0.9% [Normal Saline] 500 ml IV BOLUS 06/03/17 04:30 Meropenem [Merrem] 500 mg Sodium Chloride 0.9% [Normal Saline] 100 ml IV Q8H Plan: ASSESSMENT AND PLAN Suspect infected [place] shunt with sepsis progressing to septic shock - transferred to the intensive care unit early this morning. purulent drainage from [place] shunt worrisome for infection with recent placement. Low-grade temperature elevations. Labs pending for white blood cell count at this time. Evidence for sepsis includes tachycardia, lactic acidosis and hypotension. He has been on excellent gram-positive coverage but may benefit from additional gram-negative coverage. He has had multiple fluid challenges through the night and remains hypotensive. Possible component of hypovolemia with concern for large humpback hematoma which could be contributing. Hemoglobin level currently pending. -Initiate norepinephrine -Additional 500 mL bolus -Add meropenem for gram-negative coverage -Dose of hydrocortisone -Repeat lactic acid level -Follow-up hemoglobin, type and screen requested -surgical intervention is planned to remove the [place] shunt -Discontinue lisinopril Acute kidney injury - patient currently septic with oliguria. He is on lisinopril and this likely is contributing as well. He has received multiple fluid challenges. -Sepsis management as above -Follow-up labs Hyponatremia -likely hypovolemic. I would anticipate this will improve after fluid challenges. Cirrhosis - complicated by ascites, status post Aristeo shunt placement. Concern for infection as discussed above. -Medical management is indicated Kike Day MD Requesting Provider: Dr. Kramer Date Consult Requested: 06/03/17 Reason for Consult: Hypotension Patient History Reviewed: Yes Admission H&P Reviewed: Yes Notified Requestor: No Time Spent (in minutes): 60
[2017-06-03] MEDS ORDERED: Meropenem 500 MG in Sodium Chloride 0.9% 100 ML IV SCH (04:30)
[2017-06-03] MEDS: Linezolid 600 MG in Premix Bag 1 BAG IV SCH ×2 (04:36→16:01)
[2017-06-03] MEDS: Dextrose 5%-Lactated Ringers 1,000 ML IV SCH (05:08)
[2017-06-03] MEDS ORDERED: Sodium Chloride 0.9% 1,000 ML IV ONE (06:36)
[2017-06-03] MEDS ORDERED: Sodium Chloride 0.9% 1,000 ML IV SCH ×3 (07:00→16:00)
[2017-06-03] MEDS ORDERED: Lisinopril 10 MG Tab PO SCH (09:00)
[2017-06-03] MEDS: Magnesium Sulfate/Water 2 GM in Premix Bag 1 BAG IV SCH ×3 (09:46→21:15)
[2017-06-03] MEDS ORDERED: Meropenem 500 MG SDV ONE (10:04)
[2017-06-03] MEDS ORDERED: Propofol 200 MG/20 ML SDV ONE (12:07)
[2017-06-03] MEDS ORDERED: Lidocaine 1% with EPINEPHrine 1:100,000 50 ML MDV ONE (12:25)
[2017-06-03] MEDS ORDERED: Bupivacaine 0.5% 50 ML MDV ONE (12:25)
[2017-06-03] MEDS ORDERED: Linezolid 200 MG/100 ML Bag IRR ONE (12:27)
--- NOTE | 2017-06-03 12:35 | PN ---
DATE OF SERVICE: 06/03/2017 The patient was transferred down to ICU during the night as he continued to be relatively hypotensive with low urine output. He continues to have a moderate amount of drainage from the open area on his [place] shunt. He had received a fair bit of normal saline. We are using this as his chloride and sodium are both quite low. Presently, he is on a norepinephrine drip. Some of the hypotension may be related to his advanced cirrhosis with an underlying but certainly this is likely a combination of some degree of sepsis as well as of hypovolemia. At present, blood pressures are running in the 80s and 90s systolic, and we will give him some additional normal saline with 1 L over the next half hour and then 500 mL an hour. His hemoglobin was also low at 6. He has a large hematoma on his back, which likely accounts for most of that drop in hemoglobin. The hematoma is intact and, at this point, we will not plan to drain that as it is unlikely to become infected and opening it may expose some hardware to a high risk of getting infected. At any rate, we will give him 2 units of packed RBCs. Plan to proceed with closure of the peritoneal opening and removal of [place] shunt later this morning. This will be done with IV sedation. We will get cultures of the peritoneal fluid at that time and then after those are obtained, inject as well with some meropenem and Zyvox into the peritoneal fluid at the time of its closure and then continue with vigorous resuscitative efforts. Bimal Kramer MD /[id number]
[2017-06-03] MEDS: Meropenem 500 MG in Sodium Chloride 0.9% 50 ML IV SCH ×2 (13:29→21:16)
[2017-06-03] MEDS ORDERED: traMADol 50 MG Tab PO PRN (13:52)
[2017-06-03] MEDS ORDERED: Dextrose 5%-Lactated Ringers 1,000 ML IV SCH (14:00)
[2017-06-03] MEDS: Pantoprazole 40 MG Vial IV SCH (16:00)
[2017-06-04] MEDS ORDERED: Dextrose 5%-Lactated Ringers 1,000 ML IV SCH (01:15)
[2017-06-04] MEDS: Linezolid 600 MG in Premix Bag 1 BAG IV SCH ×2 (04:10→15:12)
[2017-06-04] MEDS: Magnesium Sulfate/Water 2 GM in Premix Bag 1 BAG IV SCH ×4 (04:11→21:53)
[2017-06-04] MEDS: Meropenem 500 MG in Sodium Chloride 0.9% 50 ML IV SCH ×3 (05:32→21:20)
--- NOTE | 2017-06-04 08:49 | PCM.CONSN ---
- General Info Date of Service: 06/04/17 Functional Status: Reports: Pain Controlled, Tolerating Diet - Review of Systems General: Reports: Weakness Cardiovascular: Reports: Edema Gastrointestinal: Denies: Abdominal Pain Systems Review Comment:: no acute events overnight. No abdominal pain reported today. Urine output has been improving. Norepinephrine requirement has been decreasing. Tolerated removal of the Aristeo shunt without significant difficulty yesterday. His strength is improving and he is able to get around with only minimal assistance today. He does not feel short of breath and is not requiring oxygen. He has significant edema involving both arms and legs today. - Patient Data Vitals - Most Recent: Last Vital Signs Temp 35.8 C 06/04/17 07:00 Pulse 70 06/04/17 06:38 Resp 18 06/04/17 08:00 BP 117/66 06/04/17 08:00 Pulse Ox 99 06/04/17 08:00 Weight - Most Recent: 101.718 kg I&O - Last 24 Hours: Intake & Output 06/03/17 06/04/17 06/04/17 22:59 06:59 14:59 Intake Total 2976 2872 Output Total 1375 1725 Balance 1601 1147 Lab Results Last 24 Hours: Laboratory Results - last 24 hr 06/03/17 06/03/17 06/03/17 Range/Units 04:43 14:45 14:50 WBC 24.2 H (4.5-11.0) K/uL RBC 3.55 L (4.30-5.90) M/uL Hgb 10.9 L D (12.0-15.0) g/dL Hct 31.2 L (40.0-54.0) % MCV 88 (80-98) fL MCH 31 (27-31) pg MCHC 35 (32-36) % Plt Count 123 L (150-400) K/uL PT (9.5-12.0) sec INR (0.80-1.20) APTT (27.0-36.0) sec Sodium 124 L (140-148) mmol/L Potassium 3.9 (3.6-5.2) mmol/L Chloride 98 L (100-108) mmol/L Carbon Dioxide 16 L (21-32) mmol/L Anion Gap 13.9 (5.0-14.0) mmol/L BUN 31 H (7-18) mg/dL Creatinine 1.6 H (0.8-1.3) mg/dL Est Cr Clr Drug Dosing 55.13 mL/min Estimated GFR (MDRD) 45 L (>60) Glucose 131 H (74-106) mg/dL Calcium 6.8 L* (8.5-10.1) mg/dL Phosphorus 4.1 (2.5-4.9) mg/dL Total Bilirubin (0.2-1.0) mg/dL AST (15-37) U/L ALT (12-78) U/L Alkaline Phosphatase (46-116) U/L NT-Pro-B Natriuret Pep 1620 H (5-125) pg/mL Total Protein (6.4-8.2) g/dL Albumin (3.4-5.0) g/dL Globulin (2.3-3.5) g/dL Albumin/Globulin Ratio (1.2-2.2) Blood Type O POSITIVE Gel Antibody Screen Negative Crossmatch See Detail 06/04/17 06/04/17 06/04/17 Range/Units 05:45 05:45 05:45 WBC 22.4 H (4.5-11.0) K/uL RBC 3.32 L (4.30-5.90) M/uL Hgb 9.9 L (12.0-15.0) g/dL Hct 29.0 L (40.0-54.0) % MCV 87 (80-98) fL MCH 30 (27-31) pg MCHC 34 (32-36) % Plt Count 100 L (150-400) K/uL PT 18.4 H (9.5-12.0) sec INR 1.68 H (0.80-1.20) APTT 81.9 H (27.0-36.0) sec Sodium 129 L (140-148) mmol/L Potassium 3.3 L (3.6-5.2) mmol/L Chloride 102 (100-108) mmol/L Carbon Dioxide 18 L (21-32) mmol/L Anion Gap 12.3 (5.0-14.0) mmol/L BUN 24 H (7-18) mg/dL Creatinine 1.0 (0.8-1.3) mg/dL Est Cr Clr Drug Dosing 88.43 mL/min Estimated GFR (MDRD) > 60 (>60) Glucose 168 H (74-106) mg/dL Calcium 7.3 L (8.5-10.1) mg/dL Phosphorus 3.0 (2.5-4.9) mg/dL Total Bilirubin 5.0 H D (0.2-1.0) mg/dL AST 33 (15-37) U/L ALT 18 (12-78) U/L Alkaline Phosphatase 136 H (46-116) U/L NT-Pro-B Natriuret Pep 1863 H (5-125) pg/mL Total Protein 5.0 L (6.4-8.2) g/dL Albumin 1.9 L (3.4-5.0) g/dL Globulin 3.1 (2.3-3.5) g/dL Albumin/Globulin Ratio 0.6 L (1.2-2.2) Blood Type Gel Antibody Screen Crossmatch Victor Manuel Results Last 24 Hours: Microbiology 06/02/17 20:41 Urine Culture - Preliminary Urine, Catheterized 06/03/17 12:35 Wound Culture - Preliminary Peritoneal Fluid No Growth Med Orders - Current: Current Medications Linezolid 600 mg/ Premix 300 mls @ 300 mls/hr IV Q12H [facility] Last Admin: 06/04/17 04:10 Dose: 300 mls/hr Norepinephrine Bitartrate 4 mg (/ Dextrose/Water) 250 mls @ 7.5 mls/hr IV TITRATE DAVID; 2 MCG/MIN PRN Reason: Protocol Last Titration: 06/04/17 08:19 Dose: 0 mcg/min, 0 mls/hr Meropenem 500 mg/ Sodium (Chloride) 50 mls @ 100 mls/hr IV Q8HR DAVID Last Admin: 06/04/17 05:32 Dose: 100 mls/hr Magnesium Sulfate 2 gm/ Premix 50 mls @ 25 mls/hr IV Q6HR DAVID Stop: 06/06/17 05:59 Last Admin: 06/04/17 04:11 Dose: 25 mls/hr Albumin Human (Albumin 25%) 25 gm in 100 mls @ 25 mls/hr IV Q24H DAVID Stop: 06/06/17 17:59 Last Admin: 06/03/17 14:07 Dose: 25 mls/hr Albumin Human (Albumin 25%) 25 gm in 100 mls @ 25 mls/hr IV Q24H DAVID Stop: 06/06/17 21:59 Last Admin: 06/03/17 18:06 Dose: 25 mls/hr Potassium Acetate 20 meq/ (Dextrose/Sodium Chloride) 1,010 mls @ 150 mls/hr IV .Q6H44M [facility] Phytonadione 10 mg/ Sodium (Chloride) 51 mls @ 51 mls/hr IV ONETIME ONE Stop: 06/04/17 09:59 Oxycodone HCl (Oxycodone) 5 mg PO Q4H PRN PRN Reason: PAIN Pantoprazole Sodium (Protonix Iv) 40 mg IV Q24H [facility] Last Admin: 06/03/17 16:00 Dose: 40 mg Discontinued Medications Bupivacaine HCl (Marcaine 0.5%) Confirm Administered Dose 50 ml .ROUTE .STK-MED ONE Stop: 06/03/17 12:26 Last Admin: 06/03/17 12:24 Dose: 5 ml Hydrocortisone Sodium Succinate (Solu-Cortef) 100 mg IVPUSH ONETIME ONE Stop: 06/03/17 04:03 Last Admin: 06/03/17 04:48 Dose: 100 mg Dextrose/Lactated Ringer's (Dextrose 5%-Lactated Ringers) 1,000 mls @ 100 mls/ hr IV ASDIRECTED [facility] Last Admin: 06/02/17 15:03 Dose: 100 mls/hr Lactated Ringer's (Ringers, Lactated) 500 mls @ 500 mls/hr IV BOLUS ONE Stop: 06/02/17 16:58 Last Admin: 06/02/17 16:10 Dose: 500 mls/hr Dextrose/Lactated Ringer's (Dextrose 5%-Lactated Ringers) 1,000 mls @ 150 mls/ hr IV ASDIRECTED [facility] Last Admin: 06/03/17 05:08 Dose: 150 mls/hr Sodium Chloride (Normal Saline) 1,000 mls @ 999 mls/hr IV .BOLUS ONE Stop: 06/02/17 21:06 Last Admin: 06/02/17 20:10 Dose: 999 mls/hr Sodium Chloride (Normal Saline) 1,000 mls @ 999 mls/hr IV .BOLUS ONE Stop: 06/02/17 22:08 Last Admin: 06/02/17 21:14 Dose: 999 mls/hr Lactated Ringer's (Ringers, Lactated) 1,000 mls @ 500 mls/hr IV ASDIRECTED DAVID Stop: 06/03/17 02:30 Last Admin: 06/03/17 00:43 Dose: 500 mls/hr Sodium Chloride (Normal Saline) 1,000 mls @ 1,000 drops/min IV .BOLUS ONE Stop: 06/03/17 02:54 Last Admin: 06/03/17 04:31 Dose: 1,000 drops/min Sodium Chloride (Normal Saline) 500 mls @ 999 mls/hr IV BOLUS DAVID Stop: 06/03/17 04:46 Last Admin: 06/03/17 04:20 Dose: 999 mls/hr Dextrose/Water (Dextrose 5% In Water) Confirm Administered Dose 250 mls @ as directed .ROUTE .[facility]-MED ONE Stop: 06/03/17 04:11 Last Admin: 06/03/17 04:29 Dose: Not Given Meropenem 500 mg/ Sodium (Chloride) 100 mls @ 200 mls/hr IV Q8H [facility] Last Admin: 06/03/17 05:42 Dose: 200 mls/hr Sodium Chloride (Normal Saline) 1,000 mls @ 999 mls/hr IV .BOLUS ONE Stop: 06/03/17 07:36 Last Admin: 06/03/17 06:44 Dose: 999 mls/hr Sodium Chloride (Normal Saline) 1,000 mls @ 500 mls/hr IV ASDIRECTED [facility] Last Admin: 06/03/17 07:00 Dose: 500 mls/hr Linezolid (Zyvox) Confirm Administered Dose 100 mls @ as directed .ROUTE .K- MED ONE Stop: 06/03/17 10:05 Sodium Chloride (Normal Saline) 1,000 mls @ 300 mls/hr IV ASDIRECTED DAVID Last Admin: 06/03/17 14:07 Dose: 300 mls/hr Dextrose/Lactated Ringer's (Dextrose 5%-Lactated Ringers) 1,000 mls @ 100 mls/ hr IV ASDIRECTED DAVID Last Admin: 06/03/17 14:07 Dose: 100 mls/hr Sodium Chloride (Normal Saline) 1,000 mls @ 25 mls/hr IV ASDIRECTED DAVID Dextrose/Lactated Ringer's (Dextrose 5%-Lactated Ringers) 1,000 mls @ 100 mls/ hr IV ASDIRECTED DAVID Last Admin: 06/04/17 01:09 Dose: 100 mls/hr Lidocaine HCl (Xylocaine 2% Jelly) 10 ml MUCMEM ONETIME ONE Stop: 06/02/17 20:19 Last Admin: 06/02/17 20:37 Dose: 10 ml Lidocaine/Epinephrine (Xylocaine 1% With Epinephrine 1:100,000) Confirm Administered Dose 50 ml .ROUTE .STK-MED ONE Stop: 06/03/17 12:26 Last Admin: 06/03/17 12:24 Dose: 5 ml Linezolid (Zyvox) 200 mg IRR .STK-MED ONE Stop: 06/03/17 12:28 Last Admin: 06/03/17 12:27 Dose: 200 mg Lisinopril (Prinivil) 10 mg PO DAILY [facility] Meropenem (Merrem) Confirm Administered Dose 500 mg .ROUTE .STK-MED ONE Stop: 06/03/17 10:05 Last Admin: 06/03/17 12:27 Dose: 500 mg Propofol (Diprivan 20 Ml) Confirm Administered Dose 200 mg .ROUTE .STK-MED ONE Stop: 06/03/17 12:08 Tramadol HCl (Ultram) 0 mg PO Q4H PRN PRN Reason: PAIN - Exam Quality Assessment: No: Supplemental Oxygen General: Alert, Oriented, Cooperative, No Acute Distress Neck: Supple Lungs: Clear to Auscultation, Normal Respiratory Effort Cardiovascular: Regular Rate, Regular Rhythm GI/Abdominal Exam: Soft, Distended Extremities: Pedal Edema (pitting edema both arms and legs). No: Increased Warmth Skin: Warm, Dry Psy/Mental Status: Alert, Normal Affect Consult PN Assessment/Plan POD#: 1 Procedures: Procedures ABD PARACENTESIS W/IMAGING (04/26/17) ASSAY OF AMYLASE (04/26/17) ASSAY OF CK (CPK) (08/04/14) ASSAY OF ETHANOL (08/04/14) ASSAY OF LACTIC ACID (08/04/14) ASSAY OF LIPASE (05/10/17) ASSAY OF MAGNESIUM (05/10/17) ASSAY OF NATRIURETIC PEPTIDE (05/10/17) ASSAY OF PHOSPHORUS (05/10/17) ASSAY OF PROTEIN OTHER (04/26/17) ASSAY OF TROPONIN QUANT (08/04/14) ASSAY PH BODY FLUID NOS (04/26/17) BLOOD TYPING SEROLOGIC ABO (05/10/17) BLOOD TYPING SEROLOGIC RH(D) (05/10/17) BODY FLUID CELL COUNT (04/26/17) C-REACTIVE PROTEIN (04/24/17) CHEST X-RAY 1 VIEW FRONTAL (08/04/14) COMPATIBILITY TEST ANTIGLOB (05/10/17) COMPATIBILITY TEST SPIN (05/10/17) COMPLETE CBC AUTOMATED (05/30/17) COMPLETE CBC W/AUTO DIFF WBC (05/10/17) COMPREHEN METABOLIC PANEL (05/10/17) CREATINE MB FRACTION (08/04/14) CT ABD & PELV W/CONTRAST (05/10/17) CT HEAD/BRAIN W/O DYE (03/27/17) CT NECK SPINE W/O DYE (03/27/17) CULTURE OTHR SPECIMN AEROBIC (04/26/17) ELECTROCARDIOGRAM TRACING (08/04/14) EMERGENCY DEPT VISIT (05/30/17) EMERGENCY DEPT VISIT (05/10/17) EMERGENCY DEPT VISIT (04/24/17) EMERGENCY DEPT VISIT (03/27/17) EMERGENCY DEPT VISIT (06/06/15) EMERGENCY DEPT VISIT (08/04/14) EMERGENCY DEPT VISIT (08/04/14) EMERGENCY DEPT VISIT (12/01/13) EMERGENCY DEPT VISIT (12/01/13) EMERGENCY DEPT VISIT (08/05/13) EMERGENCY DEPT VISIT (07/19/13) FLUOROSCOPE EXAMINATION (05/10/17) FUNGUS ISOLATION CULTURE (04/26/17) GLUCOSE OTHER FLUID (04/26/17) HEPATIC FUNCTION PANEL (05/10/17) HYDRATE IV INFUSION ADD-ON (05/10/17) IMMUNIZATION ADMIN (07/19/13) IMMUNOHISTO ANTB 1ST STAIN (04/26/17) IMMUNOHISTO ANTIBODY SLIDE (04/26/17) INTMD RPR FACE/MM 2.5 CM/< (07/19/13) LACTATE (LD) (LDH) ENZYME (04/26/17) MEASURE BLOOD OXYGEN LEVEL (05/10/17) METABOLIC PANEL TOTAL CA (05/10/17) MYCOBACTERIA CULTURE (04/26/17) PROTHROMBIN TIME (05/30/17) RBC ANTIBODY SCREEN (05/10/17) ROUTINE VENIPUNCTURE (05/30/17) RPR F/E/E/N/L/M 2.5 CM/< (03/27/17) RPR S/N/AX/GEN/TRNK 2.5CM/< (03/27/17) SMEAR FLUORESCENT/ACID STAI (04/26/17) SMEAR GRAM STAIN (04/26/17) SPECIMEN INFECT AGNT CONCNTJ (04/26/17) TDAP VACCINE 7 YRS/> IM (07/19/13) THER/PROPH/DIAG INJ IV PUSH (03/27/17) THER/PROPH/DIAG INJ SC/IM (06/06/15) THER/PROPH/DIAG IV INF ADDON (05/10/17) THER/PROPH/DIAG IV INF INIT (05/10/17) THROMBOPLASTIN TIME PARTIAL (05/30/17) TISSUE EXAM BY PATHOLOGIST (04/26/17) TX/PRO/DX INJ NEW DRUG ADDON (05/10/17) TX/PRO/DX INJ SAME DRUG TAPE RECORDER REPAIRER (05/10/17) URINALYSIS AUTO W/SCOPE (04/24/17) X-RAY EXAM OF ELBOW (08/05/13) X-RAY EXAM OF FOREARM (08/05/13) X-RAY EXAM OF HUMERUS (08/05/13) X-RAY EXAM OF SHOULDER (03/27/17) X-RAY EXAM THORAC SPINE 3VWS (06/04/15) X-RAY EXAM UNILAT RIBS/CHEST (10/10/14) Problem List Initiated/Reviewed/Updated: Yes My Orders Last 24 Hours: My Active Orders 06/03/17 14:00 Meropenem [Merrem] 500 mg Sodium Chloride 0.9% [Normal Saline] 50 ml IV Q8HR Plan: ASSESSMENT AND PLAN Suspect infected Aristeo shunt with septic shock - status post removal yesterday. No fevers overnight. Cultures pending at this time. Tolerating current antibiotics. Lactic acid level has normalized. -continue norepinephrine, wean as able -Additional 500 mL bolus -Add meropenem for gram-negative coverage until cultures are final -local wound care -Discontinue lisinopril Acute blood loss anemia - very large area of bruising over the back is the likely location of blood leading to hemoglobin less than 7. Hemoglobin improved with 2 units of blood yesterday. Vital signs are stabilizing. -Hemoglobin in the morning Acute kidney injury - kidney function now back to normal. -Follow-up labs Hyponatremia - likely hypovolemic, level improved. Cirrhosis - complicated by ascites, Pancytopenia, coagulopathy. Concern for infection as discussed above. significant edema at this time and would benefit from diuresis, especially now that his renal function has improved and blood pressures are stabilizing. -initiate diuretics this afternoon Kike Day MD
[2017-06-04] MEDS ORDERED: Phytonadione 10 MG in Sodium Chloride 0.9% 50 ML IV ONE (09:00)
[2017-06-04] MEDS: DEXTROSE IV SCH ×6 (09:04→23:59)
[2017-06-04] MEDS: NACL IV SCH ×6 (09:04→23:59)
[2017-06-04] MEDS: POTASSIUM ACETATE IV SCH ×6 (09:04→23:59)
[2017-06-04] MEDS: Spironolactone 25 MG Tab PO SCH (13:44)
[2017-06-04] MEDS: Furosemide 40 MG Tab PO SCH (13:44)
[2017-06-04] MEDS: Pantoprazole 40 MG Vial IV SCH (15:12)
[2017-06-05] MEDS: Magnesium Sulfate/Water 2 GM in Premix Bag 1 BAG IV SCH ×4 (03:32→22:30)
[2017-06-05] MEDS: Linezolid 600 MG in Premix Bag 1 BAG IV SCH (03:32)
[2017-06-05] MEDS: Meropenem 500 MG in Sodium Chloride 0.9% 50 ML IV SCH (05:13)
[2017-06-05] MEDS: DEXTROSE IV SCH ×3 (07:20→20:39)
[2017-06-05] MEDS: POTASSIUM ACETATE IV SCH ×3 (07:20→20:39)
[2017-06-05] MEDS: NACL IV SCH ×3 (07:20→20:39)
[2017-06-05] MEDS: Furosemide 40 MG Tab PO SCH ×2 (07:51→13:37)
[2017-06-05] MEDS: Spironolactone 25 MG Tab PO SCH ×2 (07:51→13:36)
[2017-06-05] MEDS: Clindamycin Phosphate 900 MG in Sodium Chloride 0.9% 100 ML IV SCH ×2 (09:10→17:44)
--- NOTE | 2017-06-05 09:13 | PCM.CONSN ---
- General Info Date of Service: 06/05/17 Functional Status: Reports: Pain Controlled, Tolerating Diet, Ambulating - Review of Systems General: Reports: Weakness Cardiovascular: Reports: Edema Gastrointestinal: Denies: Abdominal Pain Systems Review Comment:: No acute events overnight. Vital signs have been stable after the norepinephrine was discontinued. Edema is better today after diuretics were initiated yesterday. He has not had any fevers. Wound culture is growing staph aureus and antibiotics were adjusted this morning by Dr. Kramer. Kidney function has remained stable and is back to baseline. Strength slowly improving. Tolerating diet. - Patient Data Vitals - Most Recent: Last Vital Signs Temp 36.1 C 06/05/17 07:00 Pulse 64 06/05/17 06:00 Resp 11 L 06/05/17 07:00 BP 106/53 L 06/05/17 07:00 Pulse Ox 94 L 06/05/17 07:00 Weight - Most Recent: 101.718 kg I&O - Last 24 Hours: Intake & Output 06/04/17 06/05/17 06/05/17 22:59 06:59 14:59 Intake Total 2710 2540 Output Total 800 350 Balance 1910 2190 Lab Results Last 24 Hours: Laboratory Results - last 24 hr 06/05/17 06/05/17 06/05/17 Range/Units 05:59 05:59 05:59 WBC 10.1 (4.5-11.0) K/uL RBC 3.16 L (4.30-5.90) M/uL Hgb 9.7 L (12.0-15.0) g/dL Hct 28.0 L (40.0-54.0) % MCV 89 (80-98) fL MCH 31 (27-31) pg MCHC 35 (32-36) % Plt Count 71 L (150-400) K/uL PT 15.8 H (9.5-12.0) sec INR 1.45 H (0.80-1.20) APTT 75.1 H (27.0-36.0) sec Sodium 132 L (140-148) mmol/L Potassium 3.3 L (3.6-5.2) mmol/L Chloride 104 (100-108) mmol/L Carbon Dioxide 20 L (21-32) mmol/L Anion Gap 11.3 (5.0-14.0) mmol/L BUN 19 H (7-18) mg/dL Creatinine 0.7 L (0.8-1.3) mg/dL Est Cr Clr Drug Dosing 126.32 mL/min Estimated GFR (MDRD) > 60 (>60) Glucose 112 H (74-106) mg/dL Calcium 7.1 L (8.5-10.1) mg/dL Phosphorus 2.2 L (2.5-4.9) mg/dL Total Bilirubin 5.4 H (0.2-1.0) mg/dL AST 56 H (15-37) U/L ALT 21 (12-78) U/L Alkaline Phosphatase 136 H (46-116) U/L NT-Pro-B Natriuret Pep 815 H (5-125) pg/mL Total Protein 4.8 L (6.4-8.2) g/dL Albumin 2.0 L (3.4-5.0) g/dL Globulin 2.8 (2.3-3.5) g/dL Albumin/Globulin Ratio 0.7 L (1.2-2.2) Victor Manuel Results Last 24 Hours: Microbiology 06/03/17 12:35 Wound Culture - Final Peritoneal Fluid Staphylococcus Aureus Anaerobic Culture - Preliminary NO GROWTH AFTER 2 DAYS 06/02/17 20:41 Urine Culture - Preliminary Urine, Catheterized Med Orders - Current: Current Medications Furosemide (Lasix) 40 mg PO BIDDIURETIC [facility] Last Admin: 06/05/17 07:51 Dose: 40 mg Magnesium Sulfate 2 gm/ Premix 50 mls @ 25 mls/hr IV Q6HR [facility] Stop: 06/06/17 05:59 Last Admin: 06/05/17 03:32 Dose: 25 mls/hr Albumin Human (Albumin 25%) 25 gm in 100 mls @ 25 mls/hr IV Q24H [facility] Stop: 06/06/17 17:59 Last Admin: 06/04/17 13:44 Dose: 25 mls/hr Albumin Human (Albumin 25%) 25 gm in 100 mls @ 25 mls/hr IV Q24H [facility] Stop: 06/06/17 21:59 Last Admin: 06/04/17 21:20 Dose: 25 mls/hr Potassium Acetate 20 meq/ (Dextrose/Sodium Chloride) 1,010 mls @ 100 mls/hr IV .Q10H6M [facility] Clindamycin Phosphate 900 mg/ (Sodium Chloride) 106 mls @ 212 mls/hr IV Q8H [facility] Last Admin: 06/05/17 09:10 Dose: 212 mls/hr Ciprofloxacin/Dextrose 400 mg/ (Premix) 200 mls @ 200 mls/hr IV Q12H [facility] Potassium Phosphate 30 mmole/Lidocaine HCl 3 ml/ Sodium Chloride 263 mls @ 66 mls/hr IV Q4H [facility] Stop: 06/05/17 17:59 Oxycodone HCl (Oxycodone) 5 mg PO Q4H PRN PRN Reason: PAIN Pantoprazole Sodium (Protonix) 40 mg PO ACBREAKFAST [facility] Spironolactone (Aldactone) 25 mg PO BIDDIURETIC [facility] Last Admin: 06/05/17 07:51 Dose: 25 mg Discontinued Medications Bupivacaine HCl (Marcaine 0.5%) Confirm Administered Dose 50 ml .ROUTE .STK-MED ONE Stop: 06/03/17 12:26 Last Admin: 06/03/17 12:24 Dose: 5 ml Hydrocortisone Sodium Succinate (Solu-Cortef) 100 mg IVPUSH ONETIME ONE Stop: 06/03/17 04:03 Last Admin: 06/03/17 04:48 Dose: 100 mg Dextrose/Lactated Ringer's (Dextrose 5%-Lactated Ringers) 1,000 mls @ 100 mls/ hr IV ASDIRECTED [facility] Last Admin: 06/02/17 15:03 Dose: 100 mls/hr Linezolid 600 mg/ Premix 300 mls @ 300 mls/hr IV Q12H [facility] Last Admin: 06/05/17 03:32 Dose: 300 mls/hr Lactated Ringer's (Ringers, Lactated) 500 mls @ 500 mls/hr IV BOLUS ONE Stop: 06/02/17 16:58 Last Admin: 06/02/17 16:10 Dose: 500 mls/hr Dextrose/Lactated Ringer's (Dextrose 5%-Lactated Ringers) 1,000 mls @ 150 mls/ hr IV ASDIRECTED [facility] Last Admin: 06/03/17 05:08 Dose: 150 mls/hr Sodium Chloride (Normal Saline) 1,000 mls @ 999 mls/hr IV .BOLUS ONE Stop: 06/02/17 21:06 Last Admin: 06/02/17 20:10 Dose: 999 mls/hr Sodium Chloride (Normal Saline) 1,000 mls @ 999 mls/hr IV .BOLUS ONE Stop: 06/02/17 22:08 Last Admin: 06/02/17 21:14 Dose: 999 mls/hr Lactated Ringer's (Ringers, Lactated) 1,000 mls @ 500 mls/hr IV ASDIRECTED [facility] Stop: 06/03/17 02:30 Last Admin: 06/03/17 00:43 Dose: 500 mls/hr Sodium Chloride (Normal Saline) 1,000 mls @ 1,000 drops/min IV .BOLUS ONE Stop: 06/03/17 02:54 Last Admin: 06/03/17 04:31 Dose: 1,000 drops/min Norepinephrine Bitartrate 4 mg (/ Dextrose/Water) 250 mls @ 7.5 mls/hr IV TITRATE [facility]; 2 MCG/MIN PRN Reason: Protocol Last Titration: 06/04/17 08:19 Dose: 0 mcg/min, 0 mls/hr Sodium Chloride (Normal Saline) 500 mls @ 999 mls/hr IV BOLUS [facility] Stop: 06/03/17 04:46 Last Admin: 06/03/17 04:20 Dose: 999 mls/hr Dextrose/Water (Dextrose 5% In Water) Confirm Administered Dose 250 mls @ as directed .ROUTE .STK-MED ONE Stop: 06/03/17 04:11 Last Admin: 06/03/17 04:29 Dose: Not Given Meropenem 500 mg/ Sodium (Chloride) 100 mls @ 200 mls/hr IV Q8H [facility] Last Admin: 06/03/17 05:42 Dose: 200 mls/hr Sodium Chloride (Normal Saline) 1,000 mls @ 999 mls/hr IV .BOLUS ONE Stop: 06/03/17 07:36 Last Admin: 06/03/17 06:44 Dose: 999 mls/hr Sodium Chloride (Normal Saline) 1,000 mls @ 500 mls/hr IV ASDIRECTED [facility] Last Admin: 06/03/17 07:00 Dose: 500 mls/hr Meropenem 500 mg/ Sodium (Chloride) 50 mls @ 100 mls/hr IV Q8HR [facility] Last Admin: 06/05/17 05:13 Dose: 100 mls/hr Linezolid (Zyvox) Confirm Administered Dose 100 mls @ as directed .ROUTE .STK- MED ONE Stop: 06/03/17 10:05 Sodium Chloride (Normal Saline) 1,000 mls @ 300 mls/hr IV ASDIRECTED [facility] Last Admin: 06/03/17 14:07 Dose: 300 mls/hr Dextrose/Lactated Ringer's (Dextrose 5%-Lactated Ringers) 1,000 mls @ 100 mls/ hr IV ASDIRECTED [facility] Last Admin: 06/03/17 14:07 Dose: 100 mls/hr Sodium Chloride (Normal Saline) 1,000 mls @ 25 mls/hr IV ASDIRECTED [facility] Dextrose/Lactated Ringer's (Dextrose 5%-Lactated Ringers) 1,000 mls @ 100 mls/ hr IV ASDIRECTED [facility] Last Admin: 06/04/17 01:09 Dose: 100 mls/hr Potassium Acetate 20 meq/ (Dextrose/Sodium Chloride) 1,010 mls @ 150 mls/hr IV .Q6H44M [facility] Last Admin: 06/05/17 07:20 Dose: 150 mls/hr Phytonadione 10 mg/ Sodium (Chloride) 51 mls @ 51 mls/hr IV ONETIME ONE Stop: 06/04/17 09:59 Last Admin: 06/04/17 09:04 Dose: 51 mls/hr Lidocaine HCl (Xylocaine 2% Jelly) 10 ml MUCMEM ONETIME ONE Stop: 06/02/17 20:19 Last Admin: 06/02/17 20:37 Dose: 10 ml Lidocaine/Epinephrine (Xylocaine 1% With Epinephrine 1:100,000) Confirm Administered Dose 50 ml .ROUTE .STK-MED ONE Stop: 06/03/17 12:26 Last Admin: 06/03/17 12:24 Dose: 5 ml Linezolid (Zyvox) 200 mg IRR .STK-MED ONE Stop: 06/03/17 12:28 Last Admin: 06/03/17 12:27 Dose: 200 mg Lisinopril (Prinivil) 10 mg PO DAILY [facility] Meropenem (Merrem) Confirm Administered Dose 500 mg .ROUTE .STK-MED ONE Stop: 06/03/17 10:05 Last Admin: 06/03/17 12:27 Dose: 500 mg Pantoprazole Sodium (Protonix Iv) 40 mg IV Q24H [facility] Last Admin: 06/04/17 15:12 Dose: 40 mg Propofol (Diprivan 20 Ml) Confirm Administered Dose 200 mg .ROUTE .STK-MED ONE Stop: 06/03/17 12:08 Tramadol HCl (Ultram) 0 mg PO Q4H PRN PRN Reason: PAIN - Exam Quality Assessment: No: Supplemental Oxygen General: Alert, Oriented, Cooperative, No Acute Distress Neck: Supple Lungs: Normal Respiratory Effort GI/Abdominal Exam: Soft, No Distention Extremities: Pedal Edema (both legs to the knee) Skin: Warm, Dry, Ecchymosis Psy/Mental Status: Alert, Normal Affect Consult PN Assessment/Plan POD#: 2 Procedures: Procedures ABD PARACENTESIS W/IMAGING (04/26/17) ASSAY OF AMYLASE (04/26/17) ASSAY OF CK (CPK) (08/04/14) ASSAY OF ETHANOL (08/04/14) ASSAY OF LACTIC ACID (08/04/14) ASSAY OF LIPASE (05/10/17) ASSAY OF MAGNESIUM (05/10/17) ASSAY OF NATRIURETIC PEPTIDE (05/10/17) ASSAY OF PHOSPHORUS (05/10/17) ASSAY OF PROTEIN OTHER (04/26/17) ASSAY OF TROPONIN QUANT (08/04/14) ASSAY PH BODY FLUID NOS (04/26/17) BLOOD TYPING SEROLOGIC ABO (05/10/17) BLOOD TYPING SEROLOGIC RH(D) (05/10/17) BODY FLUID CELL COUNT (04/26/17) C-REACTIVE PROTEIN (04/24/17) CHEST X-RAY 1 VIEW FRONTAL (08/04/14) COMPATIBILITY TEST ANTIGLOB (05/10/17) COMPATIBILITY TEST SPIN (05/10/17) COMPLETE CBC AUTOMATED (05/30/17) COMPLETE CBC W/AUTO DIFF WBC (05/10/17) COMPREHEN METABOLIC PANEL (05/10/17) CREATINE MB FRACTION (08/04/14) CT ABD & PELV W/CONTRAST (05/10/17) CT HEAD/BRAIN W/O DYE (03/27/17) CT NECK SPINE W/O DYE (03/27/17) CULTURE OTHR SPECIMN AEROBIC (04/26/17) ELECTROCARDIOGRAM TRACING (08/04/14) EMERGENCY DEPT VISIT (05/30/17) EMERGENCY DEPT VISIT (05/10/17) EMERGENCY DEPT VISIT (04/24/17) EMERGENCY DEPT VISIT (03/27/17) EMERGENCY DEPT VISIT (06/06/15) EMERGENCY DEPT VISIT (08/04/14) EMERGENCY DEPT VISIT (08/04/14) EMERGENCY DEPT VISIT (12/01/13) EMERGENCY DEPT VISIT (12/01/13) EMERGENCY DEPT VISIT (08/05/13) EMERGENCY DEPT VISIT (07/19/13) FLUOROSCOPE EXAMINATION (05/10/17) FUNGUS ISOLATION CULTURE (04/26/17) GLUCOSE OTHER FLUID (04/26/17) HEPATIC FUNCTION PANEL (05/10/17) HYDRATE IV INFUSION ADD-ON (05/10/17) IMMUNIZATION ADMIN (07/19/13) IMMUNOHISTO ANTB 1ST STAIN (04/26/17) IMMUNOHISTO ANTIBODY SLIDE (04/26/17) INTMD RPR FACE/MM 2.5 CM/< (07/19/13) LACTATE (LD) (LDH) ENZYME (04/26/17) MEASURE BLOOD OXYGEN LEVEL (05/10/17) METABOLIC PANEL TOTAL CA (05/10/17) MYCOBACTERIA CULTURE (04/26/17) PROTHROMBIN TIME (05/30/17) RBC ANTIBODY SCREEN (05/10/17) ROUTINE VENIPUNCTURE (05/30/17) RPR F/E/E/N/L/M 2.5 CM/< (03/27/17) RPR S/N/AX/GEN/TRNK 2.5CM/< (03/27/17) SMEAR FLUORESCENT/ACID STAI (04/26/17) SMEAR GRAM STAIN (04/26/17) SPECIMEN INFECT AGNT CONCNTJ (04/26/17) TDAP VACCINE 7 YRS/> IM (07/19/13) THER/PROPH/DIAG INJ IV PUSH (03/27/17) THER/PROPH/DIAG INJ SC/IM (06/06/15) THER/PROPH/DIAG IV INF ADDON (05/10/17) THER/PROPH/DIAG IV INF INIT (05/10/17) THROMBOPLASTIN TIME PARTIAL (05/30/17) TISSUE EXAM BY PATHOLOGIST (04/26/17) TX/PRO/DX INJ NEW DRUG ADDON (05/10/17) TX/PRO/DX INJ SAME DRUG [employer] (05/10/17) URINALYSIS AUTO W/SCOPE (04/24/17) X-RAY EXAM OF ELBOW (08/05/13) X-RAY EXAM OF FOREARM (08/05/13) X-RAY EXAM OF HUMERUS (08/05/13) X-RAY EXAM OF SHOULDER (03/27/17) X-RAY EXAM THORAC SPINE 3VWS (06/04/15) X-RAY EXAM UNILAT RIBS/CHEST (10/10/14) Problem List Initiated/Reviewed/Updated: Yes My Orders Last 24 Hours: My Active Orders 06/04/17 14:00 Furosemide [Lasix] 40 mg PO BIDDIURETIC Spironolactone [Aldactone] 25 mg PO BIDDIURETIC 06/05/17 09:00 Pantoprazole [ProTONIX] 40 mg PO ACBREAKFAST Plan: ASSESSMENT AND PLAN 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 No fevers overnight. Cultures growing staph aureus. Sepsis has resolved. Antibiotics adjusted this morning. -Agree with current antibiotics -local wound care -Discontinue lisinopril Acute blood loss anemia - very large area of bruising over the back is the likely location of blood leading to hemoglobin less than 7. Hemoglobin has been stable. No evidence for ongoing bleeding. -Hemoglobin in the morning Acute kidney injury - kidney function now back to normal. -Follow-up labs Hyponatremia - likely hypovolemic, level continues to improve. Cirrhosis - complicated by ascites, Pancytopenia, coagulopathy. Concern for infection as discussed above. Edema has improved some with diuretics initiated yesterday. -Continue diuretics Kike Day MD
[2017-06-05] MEDS: Pantoprazole 40 MG Tab.CR PO SCH (09:35)
[2017-06-05] MEDS: LIDOCAINE IV SCH ×2 (09:35→13:36)
[2017-06-05] MEDS: POTASSIUM PHOSPHATES IV SCH ×2 (09:35→13:36)
[2017-06-05] MEDS: SODIUM CHLORIDE 0.9% IV SCH ×2 (09:35→13:36)
[2017-06-05] MEDS ORDERED: NACL IV SCH ×2 (10:00)
[2017-06-05] MEDS ORDERED: POTASSIUM ACETATE IV SCH ×2 (10:00)
[2017-06-05] MEDS ORDERED: DEXTROSE IV SCH ×2 (10:00)
[2017-06-05] MEDS: Ciprofloxacin in D5W 400 MG in Premix Bag 1 BAG IV SCH ×4 (10:03→21:06)
[2017-06-06] MEDS: Clindamycin Phosphate 900 MG in Sodium Chloride 0.9% 100 ML IV SCH ×3 (01:05→16:57)
[2017-06-06] MEDS: Magnesium Sulfate/Water 2 GM in Premix Bag 1 BAG IV SCH (04:22)
[2017-06-06] MEDS: Pantoprazole 40 MG Tab.CR PO SCH (09:06)
[2017-06-06] MEDS: Furosemide 40 MG Tab PO SCH ×2 (09:07→15:19)
[2017-06-06] MEDS: Spironolactone 25 MG Tab PO SCH ×2 (09:07→15:19)
[2017-06-06] MEDS: Ciprofloxacin in D5W 400 MG in Premix Bag 1 BAG IV SCH ×4 (11:28→22:18)
--- NOTE | 2017-06-06 11:28 | PN ---
DATE OF SERVICE: 06/05/2017 The patient has been afebrile with stable vital signs, is off the norepinephrine, and running blood pressures in the 90s to low 100s. Urine output remains good and he clinically appears to be well perfused. Oral intake has been reasonably good as well. We will back down the IV rate to around 80 mL now as his creatinine now has come back down toward normal at 0.7 and he is making good urine along with good oral intake. He remains mildly hyponatremic. At this point, we will continue the IV with normal saline as a baseline formula and recheck some labs tomorrow. His bilirubin is up somewhat at 5.4 and I expect that this will probably stabilize over the next couple days with the re-establishment of good perfusion. He is not having leakage from the incision site, we will leave the dressing in place for today. The cultures on the peritoneal fluid showed Staph aureus, sensitive to pretty much everything on the panel. Given this, we will discontinue the meropenem and Zyvox and go to a simpler antibiotic regimen consisting of clindamycin and Cipro. We will have the pharmacy review the dosing on these in an event with a goal total bilirubin of 5.4. The patient will be transferred to 2nd floor today. Bimal Kramer MD /[id number]
--- NOTE | 2017-06-06 11:43 | PCM.CONSN ---
- General Info Date of Service: 06/06/17 Functional Status: Reports: Pain Controlled, Tolerating Diet, Ambulating - Review of Systems General: Reports: Weakness Gastrointestinal: Reports: Abdominal Pain (mild) Skin: Reports: Jaundice Systems Review Comment:: No acute events overnight. Little bit tired today but otherwise stable. Blood pressures have been in the normal range. Lower extremity edema and upper extremity edema improving with diuretics. Mild abdominal pain and fullness today. Urine output has been good. Bilirubin has risen over the past few days but otherwise clinically he looks to be doing well. - Patient Data Vitals - Most Recent: Last Vital Signs Temp 37.1 C 06/06/17 11:00 Pulse 79 06/06/17 11:00 Resp 18 06/06/17 11:00 BP 94/46 L 06/06/17 11:00 Pulse Ox 98 06/06/17 11:00 Weight - Most Recent: 101.718 kg I&O - Last 24 Hours: Intake & Output 06/05/17 06/06/17 06/06/17 22:59 06:59 14:59 Intake Total 800 1530 Output Total 200 250 Balance 600 1280 Lab Results Last 24 Hours: Laboratory Results - last 24 hr 06/06/17 06/06/17 Range/Units 05:16 05:16 WBC 10.1 (4.5-11.0) K/uL RBC 3.26 L (4.30-5.90) M/uL Hgb 10.0 L (12.0-15.0) g/dL Hct 29.3 L (40.0-54.0) % MCV 90 (80-98) fL MCH 31 (27-31) pg MCHC 34 (32-36) % Plt Count 58 L (150-400) K/uL Sodium 132 L (140-148) mmol/L Potassium 4.4 (3.6-5.2) mmol/L Chloride 103 (100-108) mmol/L Carbon Dioxide 20 L (21-32) mmol/L Anion Gap 13.4 (5.0-14.0) mmol/L BUN 21 H (7-18) mg/dL Creatinine 0.8 (0.8-1.3) mg/dL Est Cr Clr Drug Dosing 110.53 mL/min Estimated GFR (MDRD) > 60 (>60) Glucose 99 (74-106) mg/dL Calcium 7.0 L (8.5-10.1) mg/dL Phosphorus 3.9 (2.5-4.9) mg/dL Total Bilirubin 7.7 H (0.2-1.0) mg/dL AST 51 H (15-37) U/L ALT 22 (12-78) U/L Alkaline Phosphatase 125 H (46-116) U/L Total Protein 4.8 L (6.4-8.2) g/dL Albumin 2.1 L (3.4-5.0) g/dL Globulin 2.7 (2.3-3.5) g/dL Albumin/Globulin Ratio 0.8 L (1.2-2.2) Victor Manuel Results Last 24 Hours: Microbiology 06/03/17 12:35 Wound Culture - Final Peritoneal Fluid Staphylococcus Aureus Anaerobic Culture - Final NO GROWTH AFTER 3 DAYS 06/02/17 20:41 Urine Culture - Final Urine, Catheterized Staphylococcus Aureus Med Orders - Current: Current Medications Furosemide (Lasix) 40 mg PO BIDDIURETIC [facility] Last Admin: 06/06/17 09:07 Dose: 40 mg Albumin Human (Albumin 25%) 25 gm in 100 mls @ 25 mls/hr IV Q24H [facility] Stop: 06/06/17 17:59 Last Admin: 06/05/17 13:41 Dose: 25 mls/hr Albumin Human (Albumin 25%) 25 gm in 100 mls @ 25 mls/hr IV Q24H [facility] Stop: 06/06/17 21:59 Last Admin: 06/05/17 17:41 Dose: 25 mls/hr Clindamycin Phosphate 900 mg/ (Sodium Chloride) 106 mls @ 212 mls/hr IV Q8H [facility] Last Admin: 06/06/17 09:10 Dose: 212 mls/hr Ciprofloxacin/Dextrose 400 mg/ (Premix) 200 mls @ 200 mls/hr IV Q12H [facility] Last Admin: 06/06/17 11:28 Dose: 200 mls/hr Potassium Acetate 20 meq/ (Dextrose/Sodium Chloride) 1,010 mls @ 100 mls/hr IV ASDIRECTED [facility] Last Admin: 06/05/17 20:39 Dose: 100 mls/hr Oxycodone HCl (Oxycodone) 5 mg PO Q4H PRN PRN Reason: PAIN Pantoprazole Sodium (Protonix) 40 mg PO ACBREAKFAST [facility] Last Admin: 06/06/17 09:06 Dose: 40 mg Spironolactone (Aldactone) 25 mg PO BIDDIURETIC [facility] Last Admin: 06/06/17 09:07 Dose: 25 mg Discontinued Medications Bupivacaine HCl (Marcaine 0.5%) Confirm Administered Dose 50 ml .ROUTE .STK-MED ONE Stop: 06/03/17 12:26 Last Admin: 06/03/17 12:24 Dose: 5 ml Hydrocortisone Sodium Succinate (Solu-Cortef) 100 mg IVPUSH ONETIME ONE Stop: 06/03/17 04:03 Last Admin: 06/03/17 04:48 Dose: 100 mg Dextrose/Lactated Ringer's (Dextrose 5%-Lactated Ringers) 1,000 mls @ 100 mls/ hr IV ASDIRECTED [facility] Last Admin: 06/02/17 15:03 Dose: 100 mls/hr Linezolid 600 mg/ Premix 300 mls @ 300 mls/hr IV Q12H [facility] Last Admin: 06/05/17 03:32 Dose: 300 mls/hr Lactated Ringer's (Ringers, Lactated) 500 mls @ 500 mls/hr IV BOLUS ONE Stop: 06/02/17 16:58 Last Admin: 06/02/17 16:10 Dose: 500 mls/hr Dextrose/Lactated Ringer's (Dextrose 5%-Lactated Ringers) 1,000 mls @ 150 mls/ hr IV ASDIRECTED [facility] Last Admin: 06/03/17 05:08 Dose: 150 mls/hr Sodium Chloride (Normal Saline) 1,000 mls @ 999 mls/hr IV .BOLUS ONE Stop: 06/02/17 21:06 Last Admin: 06/02/17 20:10 Dose: 999 mls/hr Sodium Chloride (Normal Saline) 1,000 mls @ 999 mls/hr IV .BOLUS ONE Stop: 06/02/17 22:08 Last Admin: 06/02/17 21:14 Dose: 999 mls/hr Lactated Ringer's (Ringers, Lactated) 1,000 mls @ 500 mls/hr IV ASDIRECTED [facility] Stop: 06/03/17 02:30 Last Admin: 06/03/17 00:43 Dose: 500 mls/hr Sodium Chloride (Normal Saline) 1,000 mls @ 1,000 drops/min IV .BOLUS ONE Stop: 06/03/17 02:54 Last Admin: 06/03/17 04:31 Dose: 1,000 drops/min Norepinephrine Bitartrate 4 mg (/ Dextrose/Water) 250 mls @ 7.5 mls/hr IV TITRATE DAVID; 2 MCG/MIN PRN Reason: Protocol Last Titration: 06/04/17 08:19 Dose: 0 mcg/min, 0 mls/hr Sodium Chloride (Normal Saline) 500 mls @ 999 mls/hr IV BOLUS [facility] Stop: 06/03/17 04:46 Last Admin: 06/03/17 04:20 Dose: 999 mls/hr Dextrose/Water (Dextrose 5% In Water) Confirm Administered Dose 250 mls @ as directed .ROUTE .STK-MED ONE Stop: 06/03/17 04:11 Last Admin: 06/03/17 04:29 Dose: Not Given Meropenem 500 mg/ Sodium (Chloride) 100 mls @ 200 mls/hr IV Q8H [facility] Last Admin: 06/03/17 05:42 Dose: 200 mls/hr Sodium Chloride (Normal Saline) 1,000 mls @ 999 mls/hr IV .BOLUS ONE Stop: 06/03/17 07:36 Last Admin: 06/03/17 06:44 Dose: 999 mls/hr Sodium Chloride (Normal Saline) 1,000 mls @ 500 mls/hr IV ASDIRECTED [facility] Last Admin: 06/03/17 07:00 Dose: 500 mls/hr Meropenem 500 mg/ Sodium (Chloride) 50 mls @ 100 mls/hr IV Q8HR [facility] Last Admin: 06/05/17 05:13 Dose: 100 mls/hr Magnesium Sulfate 2 gm/ Premix 50 mls @ 25 mls/hr IV Q6HR [facility] Stop: 06/06/17 05:59 Last Admin: 06/06/17 04:22 Dose: 25 mls/hr Linezolid (Zyvox) Confirm Administered Dose 100 mls @ as directed .ROUTE .STK- MED ONE Stop: 06/03/17 10:05 Sodium Chloride (Normal Saline) 1,000 mls @ 300 mls/hr IV ASDIRECTED [facility] Last Admin: 06/03/17 14:07 Dose: 300 mls/hr Dextrose/Lactated Ringer's (Dextrose 5%-Lactated Ringers) 1,000 mls @ 100 mls/ hr IV ASDIRECTED [facility] Last Admin: 06/03/17 14:07 Dose: 100 mls/hr Sodium Chloride (Normal Saline) 1,000 mls @ 25 mls/hr IV ASDIRECTED [facility] Dextrose/Lactated Ringer's (Dextrose 5%-Lactated Ringers) 1,000 mls @ 100 mls/ hr IV ASDIRECTED [facility] Last Admin: 06/04/17 01:09 Dose: 100 mls/hr Potassium Acetate 20 meq/ (Dextrose/Sodium Chloride) 1,010 mls @ 150 mls/hr IV .Q6H44M [facility] Last Admin: 06/05/17 07:20 Dose: 150 mls/hr Phytonadione 10 mg/ Sodium (Chloride) 51 mls @ 51 mls/hr IV ONETIME ONE Stop: 06/04/17 09:59 Last Admin: 06/04/17 09:04 Dose: 51 mls/hr Potassium Phosphate 30 mmole/Lidocaine HCl 3 ml/ Sodium Chloride 263 mls @ 66 mls/hr IV Q4H [facility] Stop: 06/05/17 17:59 Last Admin: 06/05/17 13:36 Dose: 66 mls/hr Lidocaine HCl (Xylocaine 2% Jelly) 10 ml MUCMEM ONETIME ONE Stop: 06/02/17 20:19 Last Admin: 06/02/17 20:37 Dose: 10 ml Lidocaine/Epinephrine (Xylocaine 1% With Epinephrine 1:100,000) Confirm Administered Dose 50 ml .ROUTE .STK-MED ONE Stop: 06/03/17 12:26 Last Admin: 06/03/17 12:24 Dose: 5 ml Linezolid (Zyvox) 200 mg IRR .STK-MED ONE Stop: 06/03/17 12:28 Last Admin: 06/03/17 12:27 Dose: 200 mg Lisinopril (Prinivil) 10 mg PO DAILY [facility] Meropenem (Merrem) Confirm Administered Dose 500 mg .ROUTE .STK-MED ONE Stop: 06/03/17 10:05 Last Admin: 06/03/17 12:27 Dose: 500 mg Pantoprazole Sodium (Protonix Iv) 40 mg IV Q24H [facility] Last Admin: 06/04/17 15:12 Dose: 40 mg Propofol (Diprivan 20 Ml) Confirm Administered Dose 200 mg .ROUTE .STK-MED ONE Stop: 06/03/17 12:08 Tramadol HCl (Ultram) 0 mg PO Q4H PRN PRN Reason: PAIN - Exam Quality Assessment: No: Supplemental Oxygen General: Alert, Oriented, Cooperative, No Acute Distress Neck: Supple Lungs: Normal Respiratory Effort GI/Abdominal Exam: Distended Extremities: Pedal Edema (pitting edema both legs to the knee). No: Increased Warmth Skin: Warm, Dry, Other (jaundice ) Psy/Mental Status: Alert, Normal Affect Consult PN Assessment/Plan POD#: 3 Procedures: Procedures ABD PARACENTESIS W/IMAGING (04/26/17) ASSAY OF AMYLASE (04/26/17) ASSAY OF CK (CPK) (08/04/14) ASSAY OF ETHANOL (08/04/14) ASSAY OF LACTIC ACID (08/04/14) ASSAY OF LIPASE (05/10/17) ASSAY OF MAGNESIUM (05/10/17) ASSAY OF NATRIURETIC PEPTIDE (05/10/17) ASSAY OF PHOSPHORUS (05/10/17) ASSAY OF PROTEIN OTHER (04/26/17) ASSAY OF TROPONIN QUANT (08/04/14) ASSAY PH BODY FLUID NOS (04/26/17) BLOOD TYPING SEROLOGIC ABO (05/10/17) BLOOD TYPING SEROLOGIC RH(D) (05/10/17) BODY FLUID CELL COUNT (04/26/17) C-REACTIVE PROTEIN (04/24/17) CHEST X-RAY 1 VIEW FRONTAL (08/04/14) COMPATIBILITY TEST ANTIGLOB (05/10/17) COMPATIBILITY TEST SPIN (05/10/17) COMPLETE CBC AUTOMATED (05/30/17) COMPLETE CBC W/AUTO DIFF WBC (05/10/17) COMPREHEN METABOLIC PANEL (05/10/17) CREATINE MB FRACTION (08/04/14) CT ABD & PELV W/CONTRAST (05/10/17) CT HEAD/BRAIN W/O DYE (03/27/17) CT NECK SPINE W/O DYE (03/27/17) CULTURE OTHR SPECIMN AEROBIC (04/26/17) ELECTROCARDIOGRAM TRACING (08/04/14) EMERGENCY DEPT VISIT (05/30/17) EMERGENCY DEPT VISIT (05/10/17) EMERGENCY DEPT VISIT (04/24/17) EMERGENCY DEPT VISIT (03/27/17) EMERGENCY DEPT VISIT (06/06/15) EMERGENCY DEPT VISIT (08/04/14) EMERGENCY DEPT VISIT (08/04/14) EMERGENCY DEPT VISIT (12/01/13) EMERGENCY DEPT VISIT (12/01/13) EMERGENCY DEPT VISIT (08/05/13) EMERGENCY DEPT VISIT (07/19/13) FLUOROSCOPE EXAMINATION (05/10/17) FUNGUS ISOLATION CULTURE (04/26/17) GLUCOSE OTHER FLUID (04/26/17) HEPATIC FUNCTION PANEL (05/10/17) HYDRATE IV INFUSION ADD-ON (05/10/17) IMMUNIZATION ADMIN (07/19/13) IMMUNOHISTO ANTB 1ST STAIN (04/26/17) IMMUNOHISTO ANTIBODY SLIDE (04/26/17) INTMD RPR FACE/MM 2.5 CM/< (07/19/13) LACTATE (LD) (LDH) ENZYME (04/26/17) MEASURE BLOOD OXYGEN LEVEL (05/10/17) METABOLIC PANEL TOTAL CA (05/10/17) MYCOBACTERIA CULTURE (04/26/17) PROTHROMBIN TIME (05/30/17) RBC ANTIBODY SCREEN (05/10/17) ROUTINE VENIPUNCTURE (05/30/17) RPR F/E/E/N/L/M 2.5 CM/< (03/27/17) RPR S/N/AX/GEN/TRNK 2.5CM/< (03/27/17) SMEAR FLUORESCENT/ACID STAI (04/26/17) SMEAR GRAM STAIN (04/26/17) SPECIMEN INFECT AGNT CONCNTJ (04/26/17) TDAP VACCINE 7 YRS/> IM (07/19/13) THER/PROPH/DIAG INJ IV PUSH (03/27/17) THER/PROPH/DIAG INJ SC/IM (06/06/15) THER/PROPH/DIAG IV INF ADDON (05/10/17) THER/PROPH/DIAG IV INF INIT (05/10/17) THROMBOPLASTIN TIME PARTIAL (05/30/17) TISSUE EXAM BY PATHOLOGIST (04/26/17) TX/PRO/DX INJ NEW DRUG ADDON (05/10/17) TX/PRO/DX INJ SAME DRUG GRADING SUPERVISOR (05/10/17) URINALYSIS AUTO W/SCOPE (04/24/17) X-RAY EXAM OF ELBOW (08/05/13) X-RAY EXAM OF FOREARM (08/05/13) X-RAY EXAM OF HUMERUS (08/05/13) X-RAY EXAM OF SHOULDER (03/27/17) X-RAY EXAM THORAC SPINE 3VWS (06/04/15) X-RAY EXAM UNILAT RIBS/CHEST (10/10/14) Problem List Initiated/Reviewed/Updated: Yes Plan: ASSESSMENT AND PLAN 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 No fevers overnight. Cultures growing staph aureus. Sepsis has resolved. Tolerating current antibiotics. -Agree with current antibiotics -local wound care -Discontinue lisinopril Cirrhosis - complicated by ascites, Pancytopenia, coagulopathy. Concern for infection as discussed above. Edema has been improving with diuretics. Bilirubin still rising but otherwise he is stable. I suspect the rising bilirubin is a delayed effect of the recent sepsis and should start to trend down and the next day or so since otherwise his liver disease seems to be well compensated. He does have some extra volume onboard after the initial volume resuscitation and paracentesis is planned for the morning. -Continue diuretics -Repeat labs in the morning Acute blood loss anemia - very large area of bruising over the back is the likely location of blood leading to hemoglobin less than 7. Hemoglobin has been stable. No evidence for ongoing bleeding. -Hemoglobin daily Acute kidney injury - kidney function now back to normal. -Follow-up labs Hyponatremia - likely hypovolemic, level continues to improve. Kike Day MD
--- NOTE | 2017-06-06 11:44 | OR ---
DATE OF PROCEDURE: 06/03/2017 PREOPERATIVE DIAGNOSIS: Exposed peritoneal venous shunt. POSTOPERATIVE DIAGNOSES: 1. Exposed peritoneal venous shunt. 2. Fascial dehiscence at the site of the fascial closure of abdominal entrance site of peritoneal venous shunt. OPERATIVE PROCEDURE: Limited laparotomy with, 1. Removal of peritoneal venous shunt (65460). 2. Closure of the fascial dehiscence (08857). ANESTHESIA: Local plus IV sedation. INDICATION FOR PROCEDURE: This is a 52-year-old who had received a peritoneal venous shunt placement. He had been doing very well over the last several days, however, he developed drainage from the incision located overlying the abdominal entrance site and this resulted in exposure of the shunt. He has had quite a bit of ascitic fluid leaking and the plan is to proceed with removal of the shunt and closure of the fascial defect. Potential risks including bleeding, infection, injury to underlying viscera were all reviewed, and the patient wishes to proceed. DETAILS OF PROCEDURE: The patient was taken to the operating room and placed in a supine position. Remained on norepinephrine drip, hemodynamically stabilized over the last 3-4 hours. The patient was placed in a supine position. After IV sedation was administered, the abdomen and surrounding areas were prepped and draped. The incision which was opened exposing portion of the shunt was then further widened after injection of 1% lidocaine mixed with Marcaine. This then allowed easy removal of the shunt through that incision. The underlying fascial closure appeared to have some degree of dehiscence and this was then closed with 2 layers of #1 Vicryl stitch after fascial dehiscence site was closed. The subcutaneous tissue was approximated with some 3-0 Vicryl stitch and the skin left open. Prior to closure of the fascia, red rubber catheter was placed and some peritoneal fluid was evacuated and sent for culture. We then injected 500 mg of meropenem along with 200 mg of Zyvox into the peritoneal fluid in any event that it might be infected. The fluid itself did not appear to be grossly purulent, i.e. was clear serous type fluid. After the catheter was withdrawn, the sutures were then tied and after subcutaneous tissue 3-0 Vicryl stitch was placed. The skin was packed open with iodoform gauze. The patient was taken to the recovery room in satisfactory condition. There were no evident complications. Bimal Kramer MD /[id number]
[2017-06-06] MEDS: NACL IV SCH (15:12)
[2017-06-06] MEDS: DEXTROSE IV SCH (15:12)
[2017-06-06] MEDS: POTASSIUM ACETATE IV SCH (15:12)
[2017-06-06] MEDS: oxyCODONE 5 MG Tab PO PRN ×2 (15:30→22:16)
[2017-06-07] MEDS: Clindamycin Phosphate 900 MG in Sodium Chloride 0.9% 100 ML IV SCH ×3 (00:31→18:00)
[2017-06-07] MEDS: POTASSIUM ACETATE IV SCH ×2 (03:37→16:12)
[2017-06-07] MEDS: DEXTROSE IV SCH ×2 (03:37→16:12)
[2017-06-07] MEDS: NACL IV SCH ×2 (03:37→16:12)
--- NOTE | 2017-06-07 08:04 | PN ---
DATE OF SERVICE: 06/04/2017 The patient has been afebrile. He has been weaned down to 4 mcg/minute on the norepinephrine. At present, blood pressure is 117/59, so will probably be able to get that off for the rest of the day. Urine output has been over 3 L over the last 24 hours, and creatinine is down to 1.0. His bilirubin is up to 5. PT and PTT are both quite elevated, and this likely indicates some worsening of his liver function, which would go along with the period of hypotension, most likely. At any rate, I suspect that will probably stabilize now that we are getting better perfusion. We will give him some vitamin K today, although, as mentioned above, the PT and PTT elevation is more likely related to the sympathetic dysfunction within the liver. Otherwise, he has not had any leaking from the closure site. We will leave that in place today. As he begins to get more ascites, we may need to draw some of that off, in order to keep pressure off that incision closure until it is more well healed. Otherwise, we will give him a regular diet today. His sodium and chloride are both still low. We will change the IV at this point to D5 normal saline with 20 mL of potassium acetate and a total IV rate of 150 mL an hour. Bimal Kramer MD /[id number]
--- NOTE | 2017-06-07 08:16 | PN ---
DATE OF SERVICE: 06/07/2017 SUBJECTIVE: Yvon has had some drainage out of that open wound on the left. He currently is covered with ciprofloxacin and clindamycin for antibiotics. His pain is covered with the oxycodone, which he receives as needed. Abdomen is increasing with ascites. REVIEW OF SYSTEMS: Remainder of review of systems negative for any pertinent positives or negatives. LABORATORY DATA: Labs were reviewed. Hemoglobin 10.4, INR 1.46, sodium 132, and albumin is 2.7. OBJECTIVE: GENERAL: Yvon Beach is a 52-year-old male. He is alert and orientated. VITAL SIGNS: TPR is 18, and blood pressure 130/69. HEENT: Negative. NECK: Supple. HEART: Regular rate and rhythm. LUNGS: Clear. ABDOMEN: Ascites noted. His dressing right now, on morning rounds, was dry and intact. Packing in place. EXTREMITIES: Revealed 2+ peripheral edema. ASSESSMENT: Sepsis, limited laparotomy with removal of peritoneovenous shunt, and closure of fascial dehiscence for exposed peritoneovenous shunt, fascial dehiscence at the site of fascia closure of abdominal entrance of peritoneovenous shunt. Date of surgery, 06/03/2017. PLAN: 1. Check CBC, CMP, mag, phos, and ammonia levels in a.m. 2. Albumin 50 grams IV x4 days. 3. Knee-high LIZZ stockings. Support LIZZ stockings. 4. Scheduled and have consent signed for paracentesis, ultrasound marked. Paracentesis case to follow later this afternoon, Wednesday06/07/2017, Bimal Kramer MD. 5. We will evaluate p.r.n. or in a.m. Юлия Clayton PA-C /[id number]
[2017-06-07] MEDS: Spironolactone 25 MG Tab PO SCH ×2 (08:18→14:54)
[2017-06-07] MEDS: Furosemide 40 MG Tab PO SCH ×2 (08:18→14:54)
[2017-06-07] MEDS: Pantoprazole 40 MG Tab.CR PO SCH (08:18)
[2017-06-07] MEDS: Ciprofloxacin in D5W 400 MG in Premix Bag 1 BAG IV SCH ×4 (10:31→21:25)
--- NOTE | 2017-06-07 11:21 | PN ---
DATE OF SERVICE: 06/06/2017 The patient has been afebrile with stable vital signs. No major problems were noted overnight. He has not had any drainage from the abdominal incision, and his labs look more or less status quo, other than the bilirubin continues to creep up, is 7.7 today. We asked the hospitalist to review the case to see if there is anything we should be doing differently in terms of the treatment regarding the liver issue. His ascites is getting a little bit more tense. He is not having any drainage from that incision site, but I think we will do a paracentesis tomorrow to try to take down some fluid and avoid having that wound open up. Will continue the IV antibiotics presently being administered and continue the sodium chloride with some added potassium, as he remains relatively low in terms of sodium at 132. Bimal Kramer MD /[id number]
--- NOTE | 2017-06-07 14:21 | PCM.CONSN ---
- General Info Date of Service: 06/07/17 Functional Status: Reports: Pain Controlled, Tolerating Diet - Review of Systems General: Reports: Weakness, Fatigue Gastrointestinal: Reports: Abdominal Pain Systems Review Comment:: No acute events overnight. Blood pressures have remained stable. Lower extremity edema is perhaps a little better today. Abdomen feels full and distended at this time and paracentesis is planned. He has not had any fevers. Bilirubin level continues to trend up. Kidney function and potassium levels have been stable. Ammonia level mildly elevated. - Patient Data Vitals - Most Recent: Last Vital Signs Temp 37.2 C 06/07/17 11:52 Pulse 89 06/07/17 11:52 Resp 20 06/07/17 11:52 BP 119/60 06/07/17 11:52 Pulse Ox 97 06/07/17 11:52 Weight - Most Recent: 101.718 kg I&O - Last 24 Hours: Intake & Output 06/06/17 06/07/17 06/07/17 22:59 06:59 14:59 Intake Total 200 900 940 Output Total 750 200 525 Balance -550 700 415 Lab Results Last 24 Hours: Laboratory Results - last 24 hr 06/07/17 06/07/17 06/07/17 Range/Units 04:18 04:18 04:18 WBC 11.6 H (4.5-11.0) K/uL RBC 3.36 L (4.30-5.90) M/uL Hgb 10.4 L (12.0-15.0) g/dL Hct 30.2 L (40.0-54.0) % MCV 90 (80-98) fL MCH 31 (27-31) pg MCHC 34 (32-36) % Plt Count 68 L (150-400) K/uL PT 15.8 H (9.5-12.0) sec INR 1.45 H (0.80-1.20) Sodium 132 L (140-148) mmol/L Potassium 4.4 (3.6-5.2) mmol/L Chloride 101 (100-108) mmol/L Carbon Dioxide 21 (21-32) mmol/L Anion Gap 14.4 H (5.0-14.0) mmol/L BUN 19 H (7-18) mg/dL Creatinine 0.8 (0.8-1.3) mg/dL Est Cr Clr Drug Dosing 110.53 mL/min Estimated GFR (MDRD) > 60 (>60) Glucose 87 (74-106) mg/dL Calcium 7.2 L (8.5-10.1) mg/dL Phosphorus 3.5 (2.5-4.9) mg/dL Magnesium 2.8 H (1.8-2.4) mg/dL Total Bilirubin 8.9 H (0.2-1.0) mg/dL AST 55 H (15-37) U/L ALT 23 (12-78) U/L Alkaline Phosphatase 167 H (46-116) U/L Ammonia (11-32) mmol/L Total Protein 5.5 L (6.4-8.2) g/dL Albumin 2.7 L (3.4-5.0) g/dL Globulin 2.8 (2.3-3.5) g/dL Albumin/Globulin Ratio 1.0 L (1.2-2.2) 06/07/17 Range/Units 04:18 WBC (4.5-11.0) K/uL RBC (4.30-5.90) M/uL Hgb (12.0-15.0) g/dL Hct (40.0-54.0) % MCV (80-98) fL MCH (27-31) pg MCHC (32-36) % Plt Count (150-400) K/uL PT (9.5-12.0) sec INR (0.80-1.20) Sodium (140-148) mmol/L Potassium (3.6-5.2) mmol/L Chloride (100-108) mmol/L Carbon Dioxide (21-32) mmol/L Anion Gap (5.0-14.0) mmol/L BUN (7-18) mg/dL Creatinine (0.8-1.3) mg/dL Est Cr Clr Drug Dosing mL/min Estimated GFR (MDRD) (>60) Glucose (74-106) mg/dL Calcium (8.5-10.1) mg/dL Phosphorus (2.5-4.9) mg/dL Magnesium (1.8-2.4) mg/dL Total Bilirubin (0.2-1.0) mg/dL AST (15-37) U/L ALT (12-78) U/L Alkaline Phosphatase (46-116) U/L Ammonia 43 H (11-32) mmol/L Total Protein (6.4-8.2) g/dL Albumin (3.4-5.0) g/dL Globulin (2.3-3.5) g/dL Albumin/Globulin Ratio (1.2-2.2) Med Orders - Current: Current Medications Furosemide (Lasix) 40 mg PO BIDDIURETIC DAVID Last Admin: 06/07/17 08:18 Dose: 40 mg Clindamycin Phosphate 900 mg/ (Sodium Chloride) 106 mls @ 212 mls/hr IV Q8H DAVID Last Admin: 06/07/17 08:22 Dose: 212 mls/hr Ciprofloxacin/Dextrose 400 mg/ (Premix) 200 mls @ 200 mls/hr IV Q12H [facility] Last Admin: 06/07/17 10:31 Dose: 200 mls/hr Potassium Acetate 20 meq/ (Dextrose/Sodium Chloride) 1,010 mls @ 100 mls/hr IV ASDIRECTED [facility] Last Admin: 06/07/17 03:37 Dose: 100 mls/hr Albumin Human (Albumin 25%) 25 gm in 100 mls @ 25 mls/hr IV Q24H DAVID Stop: 06/10/17 17:59 Albumin Human (Albumin 25%) 25 gm in 100 mls @ 25 mls/hr IV Q24H [facility] Stop: 06/10/17 21:59 Lactulose (Chronulac) 10 gm PO ONETIME ONE Stop: 06/07/17 15:01 Oxycodone HCl (Oxycodone) 5 mg PO Q4H PRN PRN Reason: PAIN Last Admin: 06/06/17 22:16 Dose: 5 mg Pantoprazole Sodium (Protonix) 40 mg PO ACBREAKFAST DAVID Last Admin: 06/07/17 08:18 Dose: 40 mg Spironolactone (Aldactone) 25 mg PO BIDDIURETIC DAVID Last Admin: 06/07/17 08:18 Dose: 25 mg Discontinued Medications Bupivacaine HCl (Marcaine 0.5%) Confirm Administered Dose 50 ml .ROUTE .STK-MED ONE Stop: 06/03/17 12:26 Last Admin: 06/03/17 12:24 Dose: 5 ml Hydrocortisone Sodium Succinate (Solu-Cortef) 100 mg IVPUSH ONETIME ONE Stop: 06/03/17 04:03 Last Admin: 06/03/17 04:48 Dose: 100 mg Dextrose/Lactated Ringer's (Dextrose 5%-Lactated Ringers) 1,000 mls @ 100 mls/ hr IV ASDIRECTED DAVID Last Admin: 06/02/17 15:03 Dose: 100 mls/hr Linezolid 600 mg/ Premix 300 mls @ 300 mls/hr IV Q12H DAVID Last Admin: 06/05/17 03:32 Dose: 300 mls/hr Lactated Ringer's (Ringers, Lactated) 500 mls @ 500 mls/hr IV BOLUS ONE Stop: 06/02/17 16:58 Last Admin: 06/02/17 16:10 Dose: 500 mls/hr Dextrose/Lactated Ringer's (Dextrose 5%-Lactated Ringers) 1,000 mls @ 150 mls/ hr IV ASDIRECTED DAVID Last Admin: 06/03/17 05:08 Dose: 150 mls/hr Sodium Chloride (Normal Saline) 1,000 mls @ 999 mls/hr IV .BOLUS ONE Stop: 06/02/17 21:06 Last Admin: 06/02/17 20:10 Dose: 999 mls/hr Sodium Chloride (Normal Saline) 1,000 mls @ 999 mls/hr IV .BOLUS ONE Stop: 06/02/17 22:08 Last Admin: 06/02/17 21:14 Dose: 999 mls/hr Lactated Ringer's (Ringers, Lactated) 1,000 mls @ 500 mls/hr IV ASDIRECTED DAVID Stop: 06/03/17 02:30 Last Admin: 06/03/17 00:43 Dose: 500 mls/hr Sodium Chloride (Normal Saline) 1,000 mls @ 1,000 drops/min IV .BOLUS ONE Stop: 06/03/17 02:54 Last Admin: 06/03/17 04:31 Dose: 1,000 drops/min Norepinephrine Bitartrate 4 mg (/ Dextrose/Water) 250 mls @ 7.5 mls/hr IV TITRATE DAVID; 2 MCG/MIN PRN Reason: Protocol Last Titration: 06/04/17 08:19 Dose: 0 mcg/min, 0 mls/hr Sodium Chloride (Normal Saline) 500 mls @ 999 mls/hr IV BOLUS DAVID Stop: 06/03/17 04:46 Last Admin: 06/03/17 04:20 Dose: 999 mls/hr Dextrose/Water (Dextrose 5% In Water) Confirm Administered Dose 250 mls @ as directed .ROUTE .STK-MED ONE Stop: 06/03/17 04:11 Last Admin: 06/03/17 04:29 Dose: Not Given Meropenem 500 mg/ Sodium (Chloride) 100 mls @ 200 mls/hr IV Q8H DAVID Last Admin: 06/03/17 05:42 Dose: 200 mls/hr Sodium Chloride (Normal Saline) 1,000 mls @ 999 mls/hr IV .BOLUS ONE Stop: 06/03/17 07:36 Last Admin: 06/03/17 06:44 Dose: 999 mls/hr Sodium Chloride (Normal Saline) 1,000 mls @ 500 mls/hr IV ASDIRECTED [facility] Last Admin: 06/03/17 07:00 Dose: 500 mls/hr Meropenem 500 mg/ Sodium (Chloride) 50 mls @ 100 mls/hr IV Q8HR [facility] Last Admin: 06/05/17 05:13 Dose: 100 mls/hr Magnesium Sulfate 2 gm/ Premix 50 mls @ 25 mls/hr IV Q6HR [facility] Stop: 06/06/17 05:59 Last Admin: 06/06/17 04:22 Dose: 25 mls/hr Linezolid (Zyvox) Confirm Administered Dose 100 mls @ as directed .ROUTE [facility] ONE Stop: 06/03/17 10:05 Sodium Chloride (Normal Saline) 1,000 mls @ 300 mls/hr IV ASDIRECTED [facility] Last Admin: 06/03/17 14:07 Dose: 300 mls/hr Dextrose/Lactated Ringer's (Dextrose 5%-Lactated Ringers) 1,000 mls @ 100 mls/ hr IV ASDIRECTED [facility] Last Admin: 06/03/17 14:07 Dose: 100 mls/hr Albumin Human (Albumin 25%) 25 gm in 100 mls @ 25 mls/hr IV Q24H DAVID Stop: 06/06/17 17:59 Last Admin: 06/06/17 15:19 Dose: 25 mls/hr Albumin Human (Albumin 25%) 25 gm in 100 mls @ 25 mls/hr IV Q24H [facility] Stop: 06/06/17 21:59 Last Admin: 06/06/17 19:25 Dose: 25 mls/hr Sodium Chloride (Normal Saline) 1,000 mls @ 25 mls/hr IV ASDIRECTED [facility] Dextrose/Lactated Ringer's (Dextrose 5%-Lactated Ringers) 1,000 mls @ 100 mls/ hr IV ASDIRECTED [facility] Last Admin: 06/04/17 01:09 Dose: 100 mls/hr Potassium Acetate 20 meq/ (Dextrose/Sodium Chloride) 1,010 mls @ 150 mls/hr IV .Q6H44M [facility] Last Admin: 06/05/17 07:20 Dose: 150 mls/hr Phytonadione 10 mg/ Sodium (Chloride) 51 mls @ 51 mls/hr IV ONETIME ONE Stop: 06/04/17 09:59 Last Admin: 06/04/17 09:04 Dose: 51 mls/hr Potassium Phosphate 30 mmole/Lidocaine HCl 3 ml/ Sodium Chloride 263 mls @ 66 mls/hr IV Q4H [facility] Stop: 06/05/17 17:59 Last Admin: 06/05/17 13:36 Dose: 66 mls/hr Lidocaine HCl (Xylocaine 2% Jelly) 10 ml MUCMEM ONETIME ONE Stop: 06/02/17 20:19 Last Admin: 06/02/17 20:37 Dose: 10 ml Lidocaine/Epinephrine (Xylocaine 1% With Epinephrine 1:100,000) Confirm Administered Dose 50 ml .ROUTE .STK-MED ONE Stop: 06/03/17 12:26 Last Admin: 06/03/17 12:24 Dose: 5 ml Linezolid (Zyvox) 200 mg IRR .STK-MED ONE Stop: 06/03/17 12:28 Last Admin: 06/03/17 12:27 Dose: 200 mg Lisinopril (Prinivil) 10 mg PO DAILY [facility] Meropenem (Merrem) Confirm Administered Dose 500 mg .ROUTE .STK-MED ONE Stop: 06/03/17 10:05 Last Admin: 06/03/17 12:27 Dose: 500 mg Pantoprazole Sodium (Protonix Iv) 40 mg IV Q24H [facility] Last Admin: 06/04/17 15:12 Dose: 40 mg Propofol (Diprivan 20 Ml) Confirm Administered Dose 200 mg .ROUTE .STK-MED ONE Stop: 06/03/17 12:08 Tramadol HCl (Ultram) 0 mg PO Q4H PRN PRN Reason: PAIN - Exam Quality Assessment: No: Supplemental Oxygen General: Alert, Oriented, Cooperative, No Acute Distress, Lethargic HEENT: Scleral Icterus. No: Mucous Membr. Moist/[place] (dry) Lungs: Normal Respiratory Effort GI/Abdominal Exam: Soft, Distended, Tender. No: Guarding Extremities: Pedal Edema (Pitting edema of both lower legs to the knee). No: Increased Warmth Skin: Warm, Dry, Ecchymosis (Back and left upper arm) Psy/Mental Status: Alert, Normal Affect Consult PN Assessment/Plan POD#: 3 Procedures: Procedures ABD PARACENTESIS W/IMAGING (04/26/17) ASSAY OF AMYLASE (04/26/17) ASSAY OF CK (CPK) (08/04/14) ASSAY OF ETHANOL (08/04/14) ASSAY OF LACTIC ACID (08/04/14) ASSAY OF LIPASE (05/10/17) ASSAY OF MAGNESIUM (05/10/17) ASSAY OF NATRIURETIC PEPTIDE (05/10/17) ASSAY OF PHOSPHORUS (05/10/17) ASSAY OF PROTEIN OTHER (04/26/17) ASSAY OF TROPONIN QUANT (08/04/14) ASSAY PH BODY FLUID NOS (04/26/17) BLOOD TYPING SEROLOGIC ABO (05/10/17) BLOOD TYPING SEROLOGIC RH(D) (05/10/17) BODY FLUID CELL COUNT (04/26/17) C-REACTIVE PROTEIN (04/24/17) CHEST X-RAY 1 VIEW FRONTAL (08/04/14) COMPATIBILITY TEST ANTIGLOB (05/10/17) COMPATIBILITY TEST SPIN (05/10/17) COMPLETE CBC AUTOMATED (05/30/17) COMPLETE CBC W/AUTO DIFF WBC (05/10/17) COMPREHEN METABOLIC PANEL (05/10/17) CREATINE MB FRACTION (08/04/14) CT ABD & PELV W/CONTRAST (05/10/17) CT HEAD/BRAIN W/O DYE (03/27/17) CT NECK SPINE W/O DYE (03/27/17) CULTURE OTHR SPECIMN AEROBIC (04/26/17) ELECTROCARDIOGRAM TRACING (08/04/14) EMERGENCY DEPT VISIT (05/30/17) EMERGENCY DEPT VISIT (05/10/17) EMERGENCY DEPT VISIT (04/24/17) EMERGENCY DEPT VISIT (03/27/17) EMERGENCY DEPT VISIT (06/06/15) EMERGENCY DEPT VISIT (08/04/14) EMERGENCY DEPT VISIT (08/04/14) EMERGENCY DEPT VISIT (12/01/13) EMERGENCY DEPT VISIT (12/01/13) EMERGENCY DEPT VISIT (08/05/13) EMERGENCY DEPT VISIT (07/19/13) FLUOROSCOPE EXAMINATION (05/10/17) FUNGUS ISOLATION CULTURE (04/26/17) GLUCOSE OTHER FLUID (04/26/17) HEPATIC FUNCTION PANEL (05/10/17) HYDRATE IV INFUSION ADD-ON (05/10/17) IMMUNIZATION ADMIN (07/19/13) IMMUNOHISTO ANTB 1ST STAIN (04/26/17) IMMUNOHISTO ANTIBODY SLIDE (04/26/17) INTMD RPR FACE/MM 2.5 CM/< (07/19/13) LACTATE (LD) (LDH) ENZYME (04/26/17) MEASURE BLOOD OXYGEN LEVEL (05/10/17) METABOLIC PANEL TOTAL CA (05/10/17) MYCOBACTERIA CULTURE (04/26/17) PROTHROMBIN TIME (05/30/17) RBC ANTIBODY SCREEN (05/10/17) ROUTINE VENIPUNCTURE (05/30/17) RPR F/E/E/N/L/M 2.5 CM/< (03/27/17) RPR S/N/AX/GEN/TRNK 2.5CM/< (03/27/17) SMEAR FLUORESCENT/ACID STAI (04/26/17) SMEAR GRAM STAIN (04/26/17) SPECIMEN INFECT AGNT CONCNTJ (04/26/17) TDAP VACCINE 7 YRS/> IM (07/19/13) THER/PROPH/DIAG INJ IV PUSH (03/27/17) THER/PROPH/DIAG INJ SC/IM (06/06/15) THER/PROPH/DIAG IV INF ADDON (05/10/17) THER/PROPH/DIAG IV INF INIT (05/10/17) THROMBOPLASTIN TIME PARTIAL (05/30/17) TISSUE EXAM BY PATHOLOGIST (04/26/17) TX/PRO/DX INJ NEW DRUG ADDON (05/10/17) TX/PRO/DX INJ SAME DRUG THERMIT WELDING MACHINE OPERATOR (05/10/17) URINALYSIS AUTO W/SCOPE (04/24/17) X-RAY EXAM OF ELBOW (08/05/13) X-RAY EXAM OF FOREARM (08/05/13) X-RAY EXAM OF HUMERUS (08/05/13) X-RAY EXAM OF SHOULDER (03/27/17) X-RAY EXAM THORAC SPINE 3VWS (06/04/15) X-RAY EXAM UNILAT RIBS/CHEST (10/10/14) Problem List Initiated/Reviewed/Updated: Yes My Orders Last 24 Hours: My Active Orders 06/06/17 15:38 Consult to Spiritual Care [CONS] Routine 06/07/17 10:22 Pressure Reduction Mattress [OM.PC] Routine 06/07/17 14:14 Lactulose [Chronulac] 10 gm PO ONETIME ONE Plan: ASSESSMENT AND PLAN 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 No fevers overnight. Cultures growing staph aureus. Sepsis has resolved. Tolerating current antibiotics. -Agree with current antibiotics -local wound care -Discontinue lisinopril Cirrhosis - complicated by ascites, Pancytopenia, coagulopathy. Bilirubin level still rising, likely late effect of recent septic shock on top of an already delicate cirrhotic liver. Ammonia level mildly elevated today. With increasing abdominal distention paracentesis is planned for today. -Lactulose 1 this morning -Repeat ammonia level in the morning -Continue diuretics -Repeat labs in the morning Acute blood loss anemia - hemoglobin stable. No strong evidence for bleeding. -Hemoglobin daily Acute kidney injury - kidney function now back to normal. -Follow-up labs Kike Day MD
[2017-06-07] MEDS ORDERED: Lactulose Soln 10 GM/15 ML 15 ML UD Cup PO ONE (15:00)
[2017-06-07] MEDS: oxyCODONE 5 MG Tab PO PRN ×3 (15:24→23:48)
[2017-06-08] MEDS: Clindamycin Phosphate 900 MG in Sodium Chloride 0.9% 100 ML IV SCH ×3 (01:34→16:11)
[2017-06-08] MEDS: oxyCODONE 5 MG Tab PO PRN (04:27)
[2017-06-08] MEDS: DEXTROSE IV SCH (04:45)
[2017-06-08] MEDS: NACL IV SCH (04:45)
[2017-06-08] MEDS: POTASSIUM ACETATE IV SCH (04:45)
[2017-06-08] MEDS: Pantoprazole 40 MG Tab.CR PO SCH (07:10)
[2017-06-08] MEDS: Furosemide 40 MG Tab PO SCH ×2 (09:03→14:37)
[2017-06-08] MEDS: Spironolactone 25 MG Tab PO SCH ×2 (09:04→14:37)
--- NOTE | 2017-06-08 09:20 | PN ---
DATE OF SERVICE: 06/03/2017 SUBJECTIVE: Yvon had a bedside paracentesis yesterday, 4 L were removed per Bimal Kramer MD, and the culture did come back gram-positive. He is on antibiotics. Remains to have peripheral edema. He reports his pain is controlled. LABORATORY DATA: Labs today, hemoglobin 9.1. Sodium is 134, creatinine is 0.6, ammonia 46, BNP was 815. OBJECTIVE: GENERAL: Yvon Beach is a 52-year-old male. He is alert and orientated. Looks like he is not feeling well this morning. VITAL SIGNS: TPR is 98.5, 82, 18, blood pressure 115/64. HEENT: Negative. NECK: Supple. HEART: Regular rate and rhythm. LUNGS: Clear. ABDOMEN: The right lower quadrant dressing is dry and intact. It had been draining some clear drainage. The left incision is staying clean and dry. EXTREMITIES: 2+ peripheral edema. ASSESSMENT: 1. Sepsis. 2. Limited laparotomy with removal of peritoneal venous shunt and closure of facial dehiscence for exposed peritoneal venous shunt, facial dehiscence at the site of fascia, closure of the abdominal entrance with peritoneal venous shunt. Date of surgery, 06/03/2017. 3. Paracentesis, 06/07/2017, with 4 L removed. PLAN: 1. Check CBC, CMP, mag, phos, ammonia, and BNP in the a.m. 2. Put knee-high LIZZ hose stockings on as ordered yesterday. We will evaluate p.r.n. or in the a.m. Юлия Clayton PA-C /[id number]
[2017-06-08] MEDS: Ciprofloxacin in D5W 400 MG in Premix Bag 1 BAG IV SCH ×4 (11:00→21:49)
--- NOTE | 2017-06-08 12:28 | PCM.CONSN ---
- General Info Date of Service: 06/08/17 Subjective Update: Mr. Beach has done well since paracentesis yesterday. Ascitic fluid is still showing gram-positive cocci on Gram stain, culture pending. He has had ongoing difficulty with significant peripheral and scrotal edema. Vital signs have been good and he has remained afebrile. - Review of Systems General: Reports: Weakness. Denies: Fever, Chills Pulmonary: Denies: Shortness of Breath, Pleuritic Chest Pain, Cough, Sputum, Hemoptysis Cardiovascular: Reports: Edema. Denies: Chest Pain, Palpitations, Dyspnea on Exertion, Orthopnea, PND Gastrointestinal: Denies: Abdominal Pain, Constipation, Decreased Appetite, Difficulty Swallowing, Nausea, Vomiting - Patient Data Vitals - Most Recent: Last Vital Signs Temp 98.8 F 06/08/17 11:04 Pulse 81 06/08/17 11:04 Resp 18 06/08/17 11:04 BP 111/58 L 06/08/17 11:04 Pulse Ox 91 L 06/08/17 11:04 Weight - Most Recent: 224 lb 3.997 oz I&O - Last 24 Hours: Intake & Output 06/07/17 06/08/17 06/08/17 22:59 06:59 14:59 Intake Total 840 1324 Output Total 5300 600 Balance -4460 724 Lab Results Last 24 Hours: Laboratory Results - last 24 hr 06/08/17 06/08/17 06/08/17 Range/Units 04:39 04:39 04:39 WBC 10.1 (4.5-11.0) K/uL RBC 2.95 L (4.30-5.90) M/uL Hgb 9.1 L (12.0-15.0) g/dL Hct 26.5 L (40.0-54.0) % MCV 90 (80-98) fL MCH 31 (27-31) pg MCHC 34 (32-36) % Plt Count 51 L (150-400) K/uL Sodium 134 L (140-148) mmol/L Potassium 4.1 (3.6-5.2) mmol/L Chloride 103 (100-108) mmol/L Carbon Dioxide 20 L (21-32) mmol/L Anion Gap 15.1 H (5.0-14.0) mmol/L BUN 13 (7-18) mg/dL Creatinine 0.6 L (0.8-1.3) mg/dL Est Cr Clr Drug Dosing 147.38 mL/min Estimated GFR (MDRD) > 60 (>60) Glucose 99 (74-106) mg/dL Calcium 7.1 L (8.5-10.1) mg/dL Phosphorus 2.6 (2.5-4.9) mg/dL Magnesium 1.9 D (1.8-2.4) mg/dL Total Bilirubin 8.0 H (0.2-1.0) mg/dL AST 43 H (15-37) U/L ALT 18 (12-78) U/L Alkaline Phosphatase 151 H (46-116) U/L Ammonia 46 H (11-32) mmol/L Total Protein 4.9 L (6.4-8.2) g/dL Albumin 2.4 L (3.4-5.0) g/dL Globulin 2.5 (2.3-3.5) g/dL Albumin/Globulin Ratio 1.0 L (1.2-2.2) Victor Manuel Results Last 24 Hours: Microbiology 06/03/17 12:35 Gram Stain - Final Peritoneal Fluid Wound Culture - Final Staphylococcus Aureus Anaerobic Culture - Final NO GROWTH AFTER 3 DAYS 06/07/17 19:30 Gram Stain - Final Peritoneal Fluid Med Orders - Current: Current Medications Furosemide (Lasix) 40 mg PO BIDDIURETIC [facility] Last Admin: 06/08/17 09:03 Dose: 40 mg Clindamycin Phosphate 900 mg/ (Sodium Chloride) 106 mls @ 212 mls/hr IV Q8H [facility] Last Admin: 06/08/17 09:12 Dose: 212 mls/hr Ciprofloxacin/Dextrose 400 mg/ (Premix) 200 mls @ 200 mls/hr IV Q12H [facility] Last Admin: 06/08/17 11:00 Dose: 200 mls/hr Albumin Human (Albumin 25%) 25 gm in 100 mls @ 25 mls/hr IV Q24H [facility] Stop: 06/10/17 17:59 Last Admin: 06/07/17 14:53 Dose: 25 mls/hr Albumin Human (Albumin 25%) 25 gm in 100 mls @ 25 mls/hr IV Q24H [facility] Stop: 06/10/17 21:59 Last Admin: 06/07/17 20:08 Dose: 25 mls/hr Oxycodone HCl (Oxycodone) 5 mg PO Q4H PRN PRN Reason: PAIN Last Admin: 06/08/17 04:27 Dose: 5 mg Pantoprazole Sodium (Protonix) 40 mg PO ACBREAKFAST [facility] Last Admin: 06/08/17 07:10 Dose: 40 mg Spironolactone (Aldactone) 25 mg PO BIDDIURETIC [facility] Last Admin: 06/08/17 09:04 Dose: 25 mg Discontinued Medications Bupivacaine HCl (Marcaine 0.5%) Confirm Administered Dose 50 ml .ROUTE .STK-MED ONE Stop: 06/03/17 12:26 Last Admin: 06/03/17 12:24 Dose: 5 ml Hydrocortisone Sodium Succinate (Solu-Cortef) 100 mg IVPUSH ONETIME ONE Stop: 06/03/17 04:03 Last Admin: 06/03/17 04:48 Dose: 100 mg Dextrose/Lactated Ringer's (Dextrose 5%-Lactated Ringers) 1,000 mls @ 100 mls/ hr IV ASDIRECTED [facility] Last Admin: 06/02/17 15:03 Dose: 100 mls/hr Linezolid 600 mg/ Premix 300 mls @ 300 mls/hr IV Q12H [facility] Last Admin: 06/05/17 03:32 Dose: 300 mls/hr Lactated Ringer's (Ringers, Lactated) 500 mls @ 500 mls/hr IV BOLUS ONE Stop: 06/02/17 16:58 Last Admin: 06/02/17 16:10 Dose: 500 mls/hr Dextrose/Lactated Ringer's (Dextrose 5%-Lactated Ringers) 1,000 mls @ 150 mls/ hr IV ASDIRECTED [facility] Last Admin: 06/03/17 05:08 Dose: 150 mls/hr Sodium Chloride (Normal Saline) 1,000 mls @ 999 mls/hr IV .BOLUS ONE Stop: 06/02/17 21:06 Last Admin: 06/02/17 20:10 Dose: 999 mls/hr Sodium Chloride (Normal Saline) 1,000 mls @ 999 mls/hr IV .BOLUS ONE Stop: 06/02/17 22:08 Last Admin: 06/02/17 21:14 Dose: 999 mls/hr Lactated Ringer's (Ringers, Lactated) 1,000 mls @ 500 mls/hr IV ASDIRECTED [facility] Stop: 06/03/17 02:30 Last Admin: 06/03/17 00:43 Dose: 500 mls/hr Sodium Chloride (Normal Saline) 1,000 mls @ 1,000 drops/min IV .BOLUS ONE Stop: 06/03/17 02:54 Last Admin: 06/03/17 04:31 Dose: 1,000 drops/min Norepinephrine Bitartrate 4 mg (/ Dextrose/Water) 250 mls @ 7.5 mls/hr IV TITRATE DAVID; 2 MCG/MIN PRN Reason: Protocol Last Titration: 06/04/17 08:19 Dose: 0 mcg/min, 0 mls/hr Sodium Chloride (Normal Saline) 500 mls @ 999 mls/hr IV BOLUS [facility] Stop: 06/03/17 04:46 Last Admin: 06/03/17 04:20 Dose: 999 mls/hr Dextrose/Water (Dextrose 5% In Water) Confirm Administered Dose 250 mls @ as directed .ROUTE .STK-MED ONE Stop: 06/03/17 04:11 Last Admin: 06/03/17 04:29 Dose: Not Given Meropenem 500 mg/ Sodium (Chloride) 100 mls @ 200 mls/hr IV Q8H [facility] Last Admin: 06/03/17 05:42 Dose: 200 mls/hr Sodium Chloride (Normal Saline) 1,000 mls @ 999 mls/hr IV .BOLUS ONE Stop: 06/03/17 07:36 Last Admin: 06/03/17 06:44 Dose: 999 mls/hr Sodium Chloride (Normal Saline) 1,000 mls @ 500 mls/hr IV ASDIRECTED [facility] Last Admin: 06/03/17 07:00 Dose: 500 mls/hr Meropenem 500 mg/ Sodium (Chloride) 50 mls @ 100 mls/hr IV Q8HR [facility] Last Admin: 06/05/17 05:13 Dose: 100 mls/hr Magnesium Sulfate 2 gm/ Premix 50 mls @ 25 mls/hr IV Q6HR [facility] Stop: 06/06/17 05:59 Last Admin: 06/06/17 04:22 Dose: 25 mls/hr Linezolid (Zyvox) Confirm Administered Dose 100 mls @ as directed .ROUTE .STK- MED ONE Stop: 06/03/17 10:05 Sodium Chloride (Normal Saline) 1,000 mls @ 300 mls/hr IV ASDIRECTED [facility] Last Admin: 06/03/17 14:07 Dose: 300 mls/hr Dextrose/Lactated Ringer's (Dextrose 5%-Lactated Ringers) 1,000 mls @ 100 mls/ hr IV ASDIRECTED [facility] Last Admin: 06/03/17 14:07 Dose: 100 mls/hr Albumin Human (Albumin 25%) 25 gm in 100 mls @ 25 mls/hr IV Q24H [facility] Stop: 06/06/17 17:59 Last Admin: 06/06/17 15:19 Dose: 25 mls/hr Albumin Human (Albumin 25%) 25 gm in 100 mls @ 25 mls/hr IV Q24H [facility] Stop: 06/06/17 21:59 Last Admin: 06/06/17 19:25 Dose: 25 mls/hr Sodium Chloride (Normal Saline) 1,000 mls @ 25 mls/hr IV ASDIRECTED [facility] Dextrose/Lactated Ringer's (Dextrose 5%-Lactated Ringers) 1,000 mls @ 100 mls/ hr IV ASDIRECTED [facility] Last Admin: 06/04/17 01:09 Dose: 100 mls/hr Potassium Acetate 20 meq/ (Dextrose/Sodium Chloride) 1,010 mls @ 150 mls/hr IV .Q6H44M [facility] Last Admin: 06/05/17 07:20 Dose: 150 mls/hr Phytonadione 10 mg/ Sodium (Chloride) 51 mls @ 51 mls/hr IV ONETIME ONE Stop: 06/04/17 09:59 Last Admin: 06/04/17 09:04 Dose: 51 mls/hr Potassium Phosphate 30 mmole/Lidocaine HCl 3 ml/ Sodium Chloride 263 mls @ 66 mls/hr IV Q4H [facility] Stop: 06/05/17 17:59 Last Admin: 06/05/17 13:36 Dose: 66 mls/hr Potassium Acetate 20 meq/ (Dextrose/Sodium Chloride) 1,010 mls @ 100 mls/hr IV ASDIRECTED [facility] Last Admin: 06/08/17 04:45 Dose: 100 mls/hr Lactulose (Chronulac) 10 gm PO ONETIME ONE Stop: 06/07/17 15:01 Last Admin: 06/07/17 14:54 Dose: 10 gm Lidocaine HCl (Xylocaine 2% Jelly) 10 ml MUCMEM ONETIME ONE Stop: 06/02/17 20:19 Last Admin: 06/02/17 20:37 Dose: 10 ml Lidocaine/Epinephrine (Xylocaine 1% With Epinephrine 1:100,000) Confirm Administered Dose 50 ml .ROUTE .STK-MED ONE Stop: 06/03/17 12:26 Last Admin: 06/03/17 12:24 Dose: 5 ml Linezolid (Zyvox) 200 mg IRR .STK-MED ONE Stop: 06/03/17 12:28 Last Admin: 06/03/17 12:27 Dose: 200 mg Lisinopril (Prinivil) 10 mg PO DAILY [facility]ID Meropenem (Merrem) Confirm Administered Dose 500 mg .ROUTE .STK-MED ONE Stop: 06/03/17 10:05 Last Admin: 06/03/17 12:27 Dose: 500 mg Pantoprazole Sodium (Protonix Iv) 40 mg IV Q24H [facility] Last Admin: 06/04/17 15:12 Dose: 40 mg Propofol (Diprivan 20 Ml) Confirm Administered Dose 200 mg .ROUTE .STK-MED ONE Stop: 06/03/17 12:08 Tramadol HCl (Ultram) 0 mg PO Q4H PRN PRN Reason: PAIN - Exam Quality Assessment: DVT Prophylaxis General: Alert, Oriented, Cooperative, Mild Distress Lungs: Clear to Auscultation, Normal Respiratory Effort Cardiovascular: Regular Rate, Regular Rhythm, No Murmurs GI/Abdominal Exam: Normal Bowel Sounds, Soft, Non-Tender, No Organomegaly, No Distention (Male) Exam: Scrotal Swelling Extremities: Pedal Edema Skin: Warm, Dry Consult PN Assessment/Plan Procedures: Procedures ABD PARACENTESIS W/IMAGING (04/26/17) ASSAY OF AMYLASE (04/26/17) ASSAY OF CK (CPK) (08/04/14) ASSAY OF ETHANOL (08/04/14) ASSAY OF LACTIC ACID (08/04/14) ASSAY OF LIPASE (05/10/17) ASSAY OF MAGNESIUM (05/10/17) ASSAY OF NATRIURETIC PEPTIDE (05/10/17) ASSAY OF PHOSPHORUS (05/10/17) ASSAY OF PROTEIN OTHER (04/26/17) ASSAY OF TROPONIN QUANT (08/04/14) ASSAY PH BODY FLUID NOS (04/26/17) BLOOD TYPING SEROLOGIC ABO (05/10/17) BLOOD TYPING SEROLOGIC RH(D) (05/10/17) BODY FLUID CELL COUNT (04/26/17) C-REACTIVE PROTEIN (04/24/17) CHEST X-RAY 1 VIEW FRONTAL (08/04/14) COMPATIBILITY TEST ANTIGLOB (05/10/17) COMPATIBILITY TEST SPIN (05/10/17) COMPLETE CBC AUTOMATED (05/30/17) COMPLETE CBC W/AUTO DIFF WBC (05/10/17) COMPREHEN METABOLIC PANEL (05/10/17) CREATINE MB FRACTION (08/04/14) CT ABD & PELV W/CONTRAST (05/10/17) CT HEAD/BRAIN W/O DYE (03/27/17) CT NECK SPINE W/O DYE (03/27/17) CULTURE OTHR SPECIMN AEROBIC (04/26/17) ELECTROCARDIOGRAM TRACING (08/04/14) EMERGENCY DEPT VISIT (05/30/17) EMERGENCY DEPT VISIT (05/10/17) EMERGENCY DEPT VISIT (04/24/17) EMERGENCY DEPT VISIT (03/27/17) EMERGENCY DEPT VISIT (06/06/15) EMERGENCY DEPT VISIT (08/04/14) EMERGENCY DEPT VISIT (08/04/14) EMERGENCY DEPT VISIT (12/01/13) EMERGENCY DEPT VISIT (12/01/13) EMERGENCY DEPT VISIT (08/05/13) EMERGENCY DEPT VISIT (07/19/13) FLUOROSCOPE EXAMINATION (05/10/17) FUNGUS ISOLATION CULTURE (04/26/17) GLUCOSE OTHER FLUID (04/26/17) HEPATIC FUNCTION PANEL (05/10/17) HYDRATE IV INFUSION ADD-ON (05/10/17) IMMUNIZATION ADMIN (07/19/13) IMMUNOHISTO ANTB 1ST STAIN (04/26/17) IMMUNOHISTO ANTIBODY SLIDE (04/26/17) INTMD RPR FACE/MM 2.5 CM/< (07/19/13) LACTATE (LD) (LDH) ENZYME (04/26/17) MEASURE BLOOD OXYGEN LEVEL (05/10/17) METABOLIC PANEL TOTAL CA (05/10/17) MYCOBACTERIA CULTURE (04/26/17) PROTHROMBIN TIME (05/30/17) RBC ANTIBODY SCREEN (05/10/17) ROUTINE VENIPUNCTURE (05/30/17) RPR F/E/E/N/L/M 2.5 CM/< (03/27/17) RPR S/N/AX/GEN/TRNK 2.5CM/< (03/27/17) SMEAR FLUORESCENT/ACID STAI (04/26/17) SMEAR GRAM STAIN (04/26/17) SPECIMEN INFECT AGNT CONCNTJ (04/26/17) TDAP VACCINE 7 YRS/> IM (07/19/13) THER/PROPH/DIAG INJ IV PUSH (03/27/17) THER/PROPH/DIAG INJ SC/IM (06/06/15) THER/PROPH/DIAG IV INF ADDON (05/10/17) THER/PROPH/DIAG IV INF INIT (05/10/17) THROMBOPLASTIN TIME PARTIAL (05/30/17) TISSUE EXAM BY PATHOLOGIST (04/26/17) TX/PRO/DX INJ NEW DRUG ADDON (05/10/17) TX/PRO/DX INJ SAME DRUG WASTE [employer]ER (05/10/17) URINALYSIS AUTO W/SCOPE (04/24/17) X-RAY EXAM OF ELBOW (08/05/13) X-RAY EXAM OF FOREARM (08/05/13) X-RAY EXAM OF HUMERUS (08/05/13) X-RAY EXAM OF SHOULDER (03/27/17) X-RAY EXAM THORAC SPINE 3VWS (06/04/15) X-RAY EXAM UNILAT RIBS/CHEST (10/10/14) Problem List Initiated/Reviewed/Updated: Yes My Orders Last 24 Hours: My Active Orders 06/08/17 12:11 Convert IV to Saline Lock [OM.PC] Routine 06/08/17 Lunch 2 Gram Sodium Diet [DIET] Plan: ASSESSMENT AND PLAN 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 No fevers overnight. Cultures growing staph aureus. Sepsis has resolved. Tolerating current antibiotics. Paracentesis performed yesterday, ascitic fluid on Gram stain shows persistent gram-positive cocci. -Agree with current antibiotics -local wound care -Discontinue lisinopril Cirrhosis - complicated by ascites, Pancytopenia, coagulopathy. Bilirubin level still rising, likely late effect of recent septic shock on top of an already delicate cirrhotic liver. Ammonia level mildly elevated today. Status post paracentesis yesterday -Lactulose 1 this morning -Repeat ammonia level in the morning -Continue diuretics -Repeat labs in the morning Scrotal and peripheral edema -Saline lock IV -2 g sodium diet -Continue current diuretic therapy, reassess in a.m. Acute blood loss anemia - hemoglobin stable. No strong evidence for bleeding. -Hemoglobin daily Acute kidney injury - kidney function now back to normal. -Follow-up labs
[2017-06-09] MEDS: Clindamycin Phosphate 900 MG in Sodium Chloride 0.9% 100 ML IV SCH ×3 (00:44→16:45)
[2017-06-09] MEDS: oxyCODONE 5 MG Tab PO PRN ×2 (03:08→17:45)
[2017-06-09] MEDS: Spironolactone 25 MG Tab PO SCH ×2 (07:42→14:21)
[2017-06-09] MEDS: Pantoprazole 40 MG Tab.CR PO SCH (07:42)
[2017-06-09] MEDS: Furosemide 40 MG Tab PO SCH (07:42)
--- NOTE | 2017-06-09 09:07 | PN ---
DATE OF SERVICE: 06/09/2017 SUBJECTIVE: Yvon's dressings have remained dry and intact. He has been saline locked. Bilirubin is 7.5 and ammonia 75. He is reporting some pain in his left elbow. Oral intake has been 1200 mL. Urinary output is 650. Last bowel movement was 06/09/2017. REVIEW OF SYSTEMS: Remainder of review of systems was negative for any pertinent positives and negatives. OBJECTIVE: GENERAL: Yvon Beach is a pleasant 52-year-old male. He is alert and orientated. VITAL SIGNS: TPR is 98.1, 87, 18, and blood pressure 105/68. HEENT: Negative. NECK: Supple. HEART: Regular rate and rhythm. LUNGS: Clear. ABDOMEN: Dressings are dry and intact. EXTREMITIES: Revealed 2+ peripheral edema. In the left posterior aspect of his elbow, he has an area that is sore. Dry, painful skin has built up. It is an area where he pushes himself up in bed, irritation from the bedsheets and pillow. ASSESSMENT: 1. Skin breakdown and irritation, left posterior elbow. 2. Sepsis. 3. Limited laparotomy with removal of peritoneovenous shunt and closure of fascial dehiscence for exposed peritoneovenous shunt, fascial dehiscence at the site of fascial closure of abdominal entrance with peritoneovenous shunt. Date of surgery, 06/03/2017. 4. Paracentesis, 06/07/2017, with 4 L of fluid removed. PLAN: 1. Check CBC, CMP, mag, phos, ammonia, and BNP in a.m. 2. Dietary consult. 3. Left elbow pad. 4. Eucerin cream q.i.d. to area of affected skin, left elbow, apply 4 times a day, put Kerlix over that area and then elbow pad over it. 5. We will evaluate p.r.n. or in a.m. Юлия Clayton PA-C /[id number]
[2017-06-09] MEDS: Ciprofloxacin in D5W 400 MG in Premix Bag 1 BAG IV SCH ×4 (09:30→21:43)
[2017-06-09] MEDS: Mineral Oil/Petrolatum,Hydrophilic Ointment 100 GM Jar TOP SCH ×2 (11:22→21:31)
--- NOTE | 2017-06-09 12:46 | PCM.PN ---
- General Info Date of Service: 06/09/17 Subjective Update: Mr. Beach continues to experience discomfort related to lower extremity and scrotal edema. Vital signs have remained stable and he is been afebrile. More alert today and talkative despite increase in ammonia level to 75. - Patient Data Vitals - Most Recent: Last Vital Signs Temp 98.2 F 06/09/17 12:11 Pulse 83 06/09/17 12:11 Resp 18 06/09/17 12:11 BP 112/68 06/09/17 12:11 Pulse Ox 95 06/09/17 12:11 Weight - Most Recent: 267 lb I&O - Last 24 Hours: Intake & Output 06/08/17 06/09/17 06/09/17 22:59 06:59 14:59 Intake Total 700 1010 1146 Output Total 400 250 500 Balance 300 760 646 Lab Results Last 24 Hours: Laboratory Results - last 24 hr 06/09/17 06/09/17 06/09/17 Range/Units 04:20 04:20 04:20 WBC 9.6 (4.5-11.0) K/uL RBC 3.00 L (4.30-5.90) M/uL Hgb 9.2 L (12.0-15.0) g/dL Hct 27.4 L (40.0-54.0) % MCV 91 (80-98) fL MCH 31 (27-31) pg MCHC 34 (32-36) % Plt Count 48 L (150-400) K/uL Sodium 134 L (140-148) mmol/L Potassium 4.2 (3.6-5.2) mmol/L Chloride 105 (100-108) mmol/L Carbon Dioxide 21 (21-32) mmol/L Anion Gap 12.2 (5.0-14.0) mmol/L BUN 11 (7-18) mg/dL Creatinine 0.5 L (0.8-1.3) mg/dL Est Cr Clr Drug Dosing 176.85 mL/min Estimated GFR (MDRD) > 60 (>60) Glucose 90 (74-106) mg/dL Calcium 7.4 L (8.5-10.1) mg/dL Phosphorus 2.9 (2.5-4.9) mg/dL Magnesium 1.8 (1.8-2.4) mg/dL Total Bilirubin 7.7 H (0.2-1.0) mg/dL AST 50 H (15-37) U/L ALT 19 (12-78) U/L Alkaline Phosphatase 135 H (46-116) U/L Ammonia 75 H (11-32) mmol/L NT-Pro-B Natriuret Pep 721 H (5-125) pg/mL Total Protein 5.1 L (6.4-8.2) g/dL Albumin 2.5 L (3.4-5.0) g/dL Globulin 2.6 (2.3-3.5) g/dL Albumin/Globulin Ratio 1.0 L (1.2-2.2) Victor Manuel Results Last 24 Hours: Microbiology 06/07/17 19:30 Gram Stain - Final Peritoneal Fluid Body Fluid Culture - Preliminary NO GROWTH AFTER 1 DAY Med Orders - Current: Current Medications Clindamycin Phosphate 900 mg/ (Sodium Chloride) 106 mls @ 212 mls/hr IV Q8H [facility] Last Admin: 06/09/17 09:30 Dose: 212 mls/hr Ciprofloxacin/Dextrose 400 mg/ (Premix) 200 mls @ 200 mls/hr IV Q12H [facility] Last Admin: 06/09/17 09:30 Dose: 200 mls/hr Albumin Human (Albumin 25%) 25 gm in 100 mls @ 25 mls/hr IV Q24H [facility] Stop: 06/10/17 17:59 Last Admin: 06/08/17 13:34 Dose: 25 mls/hr Albumin Human (Albumin 25%) 25 gm in 100 mls @ 25 mls/hr IV Q24H [facility] Stop: 06/10/17 21:59 Last Admin: 06/08/17 17:32 Dose: 25 mls/hr Mineral Oil/White Petrolatum (Hydrophor Oint) 0 gm TOP BID [facility] Last Admin: 06/09/17 11:22 Dose: 1 applic Oxycodone HCl (Oxycodone) 5 mg PO Q4H PRN PRN Reason: PAIN Last Admin: 06/09/17 03:08 Dose: 5 mg Pantoprazole Sodium (Protonix) 40 mg PO ACBREAKFAST [facility] Last Admin: 06/09/17 07:42 Dose: 40 mg Spironolactone (Aldactone) 25 mg PO BIDDIURETIC [facility] Last Admin: 06/09/17 07:42 Dose: 25 mg Discontinued Medications Bupivacaine HCl (Marcaine 0.5%) Confirm Administered Dose 50 ml .ROUTE .STK-MED ONE Stop: 06/03/17 12:26 Last Admin: 06/03/17 12:24 Dose: 5 ml Furosemide (Lasix) 40 mg PO BIDDIURETIC [facility] Last Admin: 06/09/17 07:42 Dose: 40 mg Hydrocortisone Sodium Succinate (Solu-Cortef) 100 mg IVPUSH ONETIME ONE Stop: 06/03/17 04:03 Last Admin: 06/03/17 04:48 Dose: 100 mg Dextrose/Lactated Ringer's (Dextrose 5%-Lactated Ringers) 1,000 mls @ 100 mls/ hr IV ASDIRECTED [facility] Last Admin: 06/02/17 15:03 Dose: 100 mls/hr Linezolid 600 mg/ Premix 300 mls @ 300 mls/hr IV Q12H [facility] Last Admin: 06/05/17 03:32 Dose: 300 mls/hr Lactated Ringer's (Ringers, Lactated) 500 mls @ 500 mls/hr IV BOLUS ONE Stop: 06/02/17 16:58 Last Admin: 06/02/17 16:10 Dose: 500 mls/hr Dextrose/Lactated Ringer's (Dextrose 5%-Lactated Ringers) 1,000 mls @ 150 mls/ hr IV ASDIRECTED [facility] Last Admin: 06/03/17 05:08 Dose: 150 mls/hr Sodium Chloride (Normal Saline) 1,000 mls @ 999 mls/hr IV .BOLUS ONE Stop: 06/02/17 21:06 Last Admin: 06/02/17 20:10 Dose: 999 mls/hr Sodium Chloride (Normal Saline) 1,000 mls @ 999 mls/hr IV .BOLUS ONE Stop: 06/02/17 22:08 Last Admin: 06/02/17 21:14 Dose: 999 mls/hr Lactated Ringer's (Ringers, Lactated) 1,000 mls @ 500 mls/hr IV ASDIRECTED [facility] Stop: 06/03/17 02:30 Last Admin: 06/03/17 00:43 Dose: 500 mls/hr Sodium Chloride (Normal Saline) 1,000 mls @ 1,000 drops/min IV .BOLUS ONE Stop: 06/03/17 02:54 Last Admin: 06/03/17 04:31 Dose: 1,000 drops/min Norepinephrine Bitartrate 4 mg (/ Dextrose/Water) 250 mls @ 7.5 mls/hr IV TITRATE DAVID; 2 MCG/MIN PRN Reason: Protocol Last Titration: 06/04/17 08:19 Dose: 0 mcg/min, 0 mls/hr Sodium Chloride (Normal Saline) 500 mls @ 999 mls/hr IV BOLUS [facility] Stop: 06/03/17 04:46 Last Admin: 06/03/17 04:20 Dose: 999 mls/hr Dextrose/Water (Dextrose 5% In Water) Confirm Administered Dose 250 mls @ as directed .ROUTE .STK-MED ONE Stop: 06/03/17 04:11 Last Admin: 06/03/17 04:29 Dose: Not Given Meropenem 500 mg/ Sodium (Chloride) 100 mls @ 200 mls/hr IV Q8H [facility] Last Admin: 06/03/17 05:42 Dose: 200 mls/hr Sodium Chloride (Normal Saline) 1,000 mls @ 999 mls/hr IV .BOLUS ONE Stop: 06/03/17 07:36 Last Admin: 06/03/17 06:44 Dose: 999 mls/hr Sodium Chloride (Normal Saline) 1,000 mls @ 500 mls/hr IV ASDIRECTED [facility] Last Admin: 06/03/17 07:00 Dose: 500 mls/hr Meropenem 500 mg/ Sodium (Chloride) 50 mls @ 100 mls/hr IV Q8HR [facility] Last Admin: 06/05/17 05:13 Dose: 100 mls/hr Magnesium Sulfate 2 gm/ Premix 50 mls @ 25 mls/hr IV Q6HR [facility] Stop: 06/06/17 05:59 Last Admin: 06/06/17 04:22 Dose: 25 mls/hr Linezolid (Zyvox) Confirm Administered Dose 100 mls @ as directed .ROUTE .STK- MED ONE Stop: 06/03/17 10:05 Sodium Chloride (Normal Saline) 1,000 mls @ 300 mls/hr IV ASDIRECTED [facility] Last Admin: 06/03/17 14:07 Dose: 300 mls/hr Dextrose/Lactated Ringer's (Dextrose 5%-Lactated Ringers) 1,000 mls @ 100 mls/ hr IV ASDIRECTED [facility] Last Admin: 06/03/17 14:07 Dose: 100 mls/hr Albumin Human (Albumin 25%) 25 gm in 100 mls @ 25 mls/hr IV Q24H [facility] Stop: 06/06/17 17:59 Last Admin: 06/06/17 15:19 Dose: 25 mls/hr Albumin Human (Albumin 25%) 25 gm in 100 mls @ 25 mls/hr IV Q24H [facility] Stop: 06/06/17 21:59 Last Admin: 06/06/17 19:25 Dose: 25 mls/hr Sodium Chloride (Normal Saline) 1,000 mls @ 25 mls/hr IV ASDIRECTED [facility] Dextrose/Lactated Ringer's (Dextrose 5%-Lactated Ringers) 1,000 mls @ 100 mls/ hr IV ASDIRECTED [facility] Last Admin: 06/04/17 01:09 Dose: 100 mls/hr Potassium Acetate 20 meq/ (Dextrose/Sodium Chloride) 1,010 mls @ 150 mls/hr IV .Q6H44M [facility] Last Admin: 06/05/17 07:20 Dose: 150 mls/hr Phytonadione 10 mg/ Sodium (Chloride) 51 mls @ 51 mls/hr IV ONETIME ONE Stop: 06/04/17 09:59 Last Admin: 06/04/17 09:04 Dose: 51 mls/hr Potassium Phosphate 30 mmole/Lidocaine HCl 3 ml/ Sodium Chloride 263 mls @ 66 mls/hr IV Q4H [facility] Stop: 06/05/17 17:59 Last Admin: 06/05/17 13:36 Dose: 66 mls/hr Potassium Acetate 20 meq/ (Dextrose/Sodium Chloride) 1,010 mls @ 100 mls/hr IV ASDIRECTED [facility] Last Admin: 06/08/17 04:45 Dose: 100 mls/hr Lactulose (Chronulac) 10 gm PO ONETIME ONE Stop: 06/07/17 15:01 Last Admin: 06/07/17 14:54 Dose: 10 gm Lidocaine HCl (Xylocaine 2% Jelly) 10 ml MUCMEM ONETIME ONE Stop: 06/02/17 20:19 Last Admin: 06/02/17 20:37 Dose: 10 ml Lidocaine/Epinephrine (Xylocaine 1% With Epinephrine 1:100,000) Confirm Administered Dose 50 ml .ROUTE .STK-MED ONE Stop: 06/03/17 12:26 Last Admin: 06/03/17 12:24 Dose: 5 ml Linezolid (Zyvox) 200 mg IRR .STK-MED ONE Stop: 06/03/17 12:28 Last Admin: 06/03/17 12:27 Dose: 200 mg Lisinopril (Prinivil) 10 mg PO DAILY [facility]ID Meropenem (Merrem) Confirm Administered Dose 500 mg .ROUTE .STK-MED ONE Stop: 06/03/17 10:05 Last Admin: 06/03/17 12:27 Dose: 500 mg Pantoprazole Sodium (Protonix Iv) 40 mg IV Q24H [facility] Last Admin: 06/04/17 15:12 Dose: 40 mg Propofol (Diprivan 20 Ml) Confirm Administered Dose 200 mg .ROUTE .STK-MED ONE Stop: 06/03/17 12:08 Tramadol HCl (Ultram) 0 mg PO Q4H PRN PRN Reason: PAIN - Exam General: Alert, Oriented, Cooperative Lungs: Clear to Auscultation, Normal Respiratory Effort Cardiovascular: Regular Rate, Regular Rhythm, No Murmurs GI/Abdominal Exam: Normal Bowel Sounds, Soft, Non-Tender, No Organomegaly, No Distention Extremities: Non-Tender, Pedal Edema Skin: Warm, Dry - Problem List Review Problem List Initiated/Reviewed/Updated: Yes - My Orders Last 24 Hours: My Active Orders 06/08/17 12:11 Convert IV to Saline Lock [OM.PC] Routine 06/08/17 Lunch 2 Gram Sodium Diet [DIET] 06/09/17 13:00 Lactulose [Chronulac] 15 gm PO BID 06/09/17 19:00 Furosemide [Lasix] 40 mg IVPUSH Q12H - Plan Plan:: ASSESSMENT AND PLAN 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 No fevers overnight. Cultures growing staph aureus. Sepsis has resolved. Tolerating current antibiotics. Paracentesis performed yesterday, ascitic fluid showing no growth after 24 hours -Agree with current antibiotics -local wound care -Discontinue lisinopril Cirrhosis - complicated by ascites, Pancytopenia, coagulopathy. Bilirubin level stable, likely late effect of recent septic shock on top of an already delicate cirrhotic liver. Ammonia level further elevated today. -Lactulose 15 g twice daily -Repeat ammonia level in the morning -Continue diuretics -Repeat labs in the morning Scrotal and peripheral edema-diuresis poor over the past 24 hours on current diuretic therapy -Saline lock IV -2 g sodium diet -Furosemide 40 mg IV every 12 hours Acute blood loss anemia - hemoglobin stable. No strong evidence for bleeding. -Hemoglobin daily Acute kidney injury - kidney function stable -Follow-up labs daily
[2017-06-09] MEDS: Lactulose Soln 10 GM/15 ML 15 ML UD Cup PO SCH ×2 (14:20→21:26)
[2017-06-09] MEDS: Furosemide 40 MG/4 ML VIAL IVPUSH SCH (19:45)
[2017-06-09] MEDS ORDERED: Albuterol/Ipratropium 3.0-0.5 MG/3 ML Neb Soln NEB STA (21:53)
[2017-06-09] MEDS ORDERED: Sodium Chloride 0.9% 10 ML Syringe FLUSH PRN (22:38)
--- NOTE | 2017-06-09 22:40 | PCM.SN ---
- Free Text/Narrative Note: time: 22:00; call from Nursing Staff Mr. Beach is having worsening of breathing, very short of breath, given Duoneb. note crackles in lung, needs to evaluation. vital signs; hr 110-rr 24 b/p 131/ 86 s: Mr. Beach denies any chest pain, reports shortness of breath o. speaks with breaths between words. appears very chronic/acute illness. jaundice lungs decreased with crackles in bases bilateral, heart tachy. abdomen; diffuse edema noted to abdomen, groin, legs. a; shortness of breath p; contact Hospitalists; order CT chest angio r/o PE, EKG, TROP, ABG'S, BMP, CBC Discussed plan of care with Mr. Beach. agree. will await results
[2017-06-09] MEDS ORDERED: Sodium Chloride 0.9% 80 ML IV SCH (22:45)
[2017-06-09] MEDS ORDERED: Iopamidol 755 Mg/ML 100 ML Bottle IV SCH (22:45)
[2017-06-10] MEDS ORDERED: Lidocaine 2% Jelly 10 ML Urojet MUCMEM ONE (00:47)
--- NOTE | 2017-06-10 00:59 | PCM.SN ---
- Free Text/Narrative Note: Mr. Beach experienced onset of shortness of breath this evening, during that period of time oxygen saturations were noted to drop and he developed increased respiratory rate as well as sinus tachycardia. Arterial blood gases were obtained and showed evidence of a respiratory alkalosis secondary to hyperventilation, likely an attempt to maintain oxygen saturations. White blood cell count has increased from this morning to 15,000s and developed a low-grade temperature elevation. Troponin level is normal and EKG shows no acute ST segment changes I did review the EKG myself there is underlying right bundle branch block with associated ST segment changes but nothing that appears to be acute. CT scan of the chest with PE protocol was obtained showing no evidence of pulmonary embolism or infiltrate. There was a large amount of abdominal ascites and also noted was pleural effusion. Likely that current shortness of breath is related to increase in ascites as well as possible underlying developing new infection. Blood cultures and urine cultures have been obtained. He is been transferred to the intensive care unit and will be placed on noninvasive positive pressure ventilation. The clindamycin and ciprofloxacin will be discontinued and he will be started on vancomycin, meropenem, and aztreonam, pending culture results.
[2017-06-10] MEDS ORDERED: Vancomycin 1 GM SDV IV SCH (01:00)
[2017-06-10] MEDS ORDERED: Meropenem 1 GM in Sodium Chloride 0.9% 100 ML IV SCH (01:00)
[2017-06-10] MEDS ORDERED: Vancomycin 1.75 GM in Sodium Chloride 0.9% 500 ML IV SCH (02:00)
[2017-06-10] MEDS: oxyCODONE 5 MG Tab PO PRN ×3 (02:00→20:04)
[2017-06-10] MEDS ORDERED: Vancomycin 1,000 MG SDV ONE (02:28)
[2017-06-10] MEDS ORDERED: Aztreonam 1 GM in Sodium Chloride 0.9% 100 ML IV SCH (06:00)
[2017-06-10] MEDS: Furosemide 40 MG/4 ML VIAL IVPUSH SCH ×2 (06:28→18:34)
[2017-06-10] MEDS: Pantoprazole 40 MG Tab.CR PO SCH (07:40)
[2017-06-10] MEDS: Spironolactone 25 MG Tab PO SCH ×2 (07:40→13:45)
[2017-06-10] MEDS: Lactulose Soln 10 GM/15 ML 15 ML UD Cup PO SCH ×2 (09:13→20:05)
[2017-06-10] MEDS: Mineral Oil/Petrolatum,Hydrophilic Ointment 100 GM Jar TOP SCH ×2 (09:14→20:05)
[2017-06-10] MEDS: Magnesium Oxide 400 MG Tab PO SCH ×2 (09:14→20:04)
--- NOTE | 2017-06-10 09:44 | PCM.PN ---
- General Info Date of Service: 06/10/17 Subjective Update: Mr. Beach has been more stable since transfer to the intensive care unit last night. During the evening developed relatively abrupt onset of shortness of breath with tachypnea and tachycardia. Blood gases showed evidence of respiratory alkalosis and borderline oxygen saturation. CT scan of the chest was obtained and showed no evidence of pneumonia or pulmonary embolism. He was placed on BiPAP after transfer to the unit and his respiratory status has been fairly stable since then. Currently on 2 L of oxygen via nasal cannula and doing well. There is also temperature elevation and suggestion of possible developing new infection although source not apparent. Antibiotics have been changed broad-spectrum coverage pending culture results. Likely significant component respiratory compromise is large volume ascites. - Patient Data Vitals - Most Recent: Last Vital Signs Temp 98.6 F 06/10/17 08:00 Pulse 96 06/10/17 08:00 Resp 21 H 06/10/17 08:00 BP 123/69 06/10/17 08:00 Pulse Ox 98 06/10/17 08:00 Weight - Most Recent: 282 lb 6.4 oz I&O - Last 24 Hours: Intake & Output 06/09/17 06/10/17 06/10/17 22:59 06:59 14:59 Intake Total 1206 1190 300 Output Total 400 350 350 Balance 806 840 -50 Lab Results Last 24 Hours: Laboratory Results - last 24 hr 06/09/17 06/09/17 06/09/17 Range/Units 22:31 22:59 23:07 WBC 15.0 H (4.5-11.0) K/uL RBC 3.02 L (4.30-5.90) M/uL Hgb 9.5 L (12.0-15.0) g/dL Hct 27.4 L (40.0-54.0) % MCV 91 (80-98) fL MCH 32 H (27-31) pg MCHC 35 (32-36) % Plt Count 46 L (150-400) K/uL Neut % (Auto) 76 H (36-66) % Lymph % (Auto) 13 L (24-44) % [place] % (Auto) 9 H (2-6) % Eos % (Auto) 1 L (2-4) % Baso % (Auto) 0 (0-1) % D-Dimer, Quantitative 2450 H (0.0-400.0) ng/mL Puncture Site ABG pH (7.350-7.450) ABG pCO2 (35.0-42.0) mmHg ABG pO2 (75.0-100.0) mmHg ABG HCO3 (22.0-26.0) mmol/L ABG Total CO2 (23.0-27.0) mmol/L ABG O2 Saturation (95.0-98.0) % ABG O2 Content (15.0-23.0) %vol ABG Base Excess mm/L ABG Hemoglobin (13.5-18.0) g/dL ABG Oxyhemoglobin % ABG Carboxyhemoglobin (0.0-1.6) % ABG Methemoglobin % Roman Test O2 Delivery Device Oxygen Flow Rate L Sodium (140-148) mmol/L Potassium (3.6-5.2) mmol/L Chloride (100-108) mmol/L Carbon Dioxide (21-32) mmol/L Anion Gap (5.0-14.0) mmol/L BUN (7-18) mg/dL Creatinine (0.8-1.3) mg/dL Est Cr Clr Drug Dosing mL/min Estimated GFR (MDRD) (>60) Glucose (74-106) mg/dL Calcium (8.5-10.1) mg/dL Phosphorus (2.5-4.9) mg/dL Magnesium (1.8-2.4) mg/dL Total Bilirubin (0.2-1.0) mg/dL AST (15-37) U/L ALT (12-78) U/L Alkaline Phosphatase (46-116) U/L Ammonia (11-32) mmol/L Troponin I 0.020 (0.000-0.056) ng/mL NT-Pro-B Natriuret Pep (5-125) pg/mL Total Protein (6.4-8.2) g/dL Albumin (3.4-5.0) g/dL Globulin (2.3-3.5) g/dL Albumin/Globulin Ratio (1.2-2.2) Urine Color Urine Appearance Urine pH (4.5-8.0) Ur Specific [place] (1.008-1.030) Urine Protein (NEGATIVE) mg/dL Urine Glucose (UA) (NEGATIVE) mg/dL Urine Ketones (NEGATIVE) mg/dL Urine Occult Blood (NEGATIVE) Urine Nitrite (NEGAITVE) Urine Bilirubin (NEGATIVE) Urine Urobilinogen (NORMAL) mg/dL Ur Leukocyte Esterase (NEGATIVE) Urine RBC (0-5) Urine WBC (0-5) Ur Epithelial Cells Amorphous Sediment Urine Bacteria Urine Mucus 06/09/17 06/09/17 06/10/17 Range/Units 23:07 23:07 00:44 WBC (4.5-11.0) K/uL RBC (4.30-5.90) M/uL Hgb (12.0-15.0) g/dL Hct (40.0-54.0) % MCV (80-98) fL MCH (27-31) pg MCHC (32-36) % Plt Count (150-400) K/uL Neut % (Auto) (36-66) % Lymph % (Auto) (24-44) % [place] % (Auto) (2-6) % Eos % (Auto) (2-4) % Baso % (Auto) (0-1) % D-Dimer, Quantitative (0.0-400.0) ng/mL Puncture Site Lt radial ABG pH 7.502 H (7.350-7.450) ABG pCO2 26.5 L (35.0-42.0) mmHg ABG pO2 64.4 L (75.0-100.0) mmHg ABG HCO3 20.6 L (22.0-26.0) mmol/L ABG Total CO2 19.0 L (23.0-27.0) mmol/L ABG O2 Saturation 93.0 L (95.0-98.0) % ABG O2 Content 12.0 L (15.0-23.0) %vol ABG Base Excess -1.4 mm/L ABG Hemoglobin 9.4 L (13.5-18.0) g/dL ABG Oxyhemoglobin 90.6 % ABG Carboxyhemoglobin 1.9 H (0.0-1.6) % ABG Methemoglobin 0.7 % Roman Test Passed O2 Delivery Device Room air Oxygen Flow Rate L Sodium 134 L (140-148) mmol/L Potassium 4.2 (3.6-5.2) mmol/L Chloride 103 (100-108) mmol/L Carbon Dioxide 22 (21-32) mmol/L Anion Gap 13.2 (5.0-14.0) mmol/L BUN 11 (7-18) mg/dL Creatinine 0.6 L (0.8-1.3) mg/dL Est Cr Clr Drug Dosing 147.38 mL/min Estimated GFR (MDRD) > 60 (>60) Glucose 95 (74-106) mg/dL Calcium 7.8 L (8.5-10.1) mg/dL Phosphorus (2.5-4.9) mg/dL Magnesium (1.8-2.4) mg/dL Total Bilirubin (0.2-1.0) mg/dL AST (15-37) U/L ALT (12-78) U/L Alkaline Phosphatase (46-116) U/L Ammonia (11-32) mmol/L Troponin I (0.000-0.056) ng/mL NT-Pro-B Natriuret Pep (5-125) pg/mL Total Protein (6.4-8.2) g/dL Albumin (3.4-5.0) g/dL Globulin (2.3-3.5) g/dL Albumin/Globulin Ratio (1.2-2.2) Urine Color [place] Urine Appearance Clear Urine pH 5.0 (4.5-8.0) Ur Specific [place] 1.010 (1.008-1.030) Urine Protein Negative (NEGATIVE) mg/dL Urine Glucose (UA) Normal (NEGATIVE) mg/dL Urine Ketones Negative (NEGATIVE) mg/dL Urine Occult Blood Large (NEGATIVE) Urine Nitrite Negative (NEGAITVE) Urine Bilirubin Small (NEGATIVE) Urine Urobilinogen Normal (NORMAL) mg/dL Ur Leukocyte Esterase Negative (NEGATIVE) Urine RBC 10-20 H (0-5) Urine WBC 0-5 (0-5) Ur Epithelial Cells Not seen Amorphous Sediment Not seen Urine Bacteria Not seen Urine Mucus Not seen 06/10/17 06/10/17 06/10/17 Range/Units 04:25 04:25 04:25 WBC 11.2 H (4.5-11.0) K/uL RBC 2.86 L (4.30-5.90) M/uL Hgb 8.8 L (12.0-15.0) g/dL Hct 26.0 L (40.0-54.0) % MCV 91 (80-98) fL MCH 31 (27-31) pg MCHC 34 (32-36) % Plt Count 84 L (150-400) K/uL Neut % (Auto) (36-66) % Lymph % (Auto) (24-44) % [place] % (Auto) (2-6) % Eos % (Auto) (2-4) % Baso % (Auto) (0-1) % D-Dimer, Quantitative (0.0-400.0) ng/mL Puncture Site ABG pH (7.350-7.450) ABG pCO2 (35.0-42.0) mmHg ABG pO2 (75.0-100.0) mmHg ABG HCO3 (22.0-26.0) mmol/L ABG Total CO2 (23.0-27.0) mmol/L ABG O2 Saturation (95.0-98.0) % ABG O2 Content (15.0-23.0) %vol ABG Base Excess mm/L ABG Hemoglobin (13.5-18.0) g/dL ABG Oxyhemoglobin % ABG Carboxyhemoglobin (0.0-1.6) % ABG Methemoglobin % Roman Test O2 Delivery Device Oxygen Flow Rate L Sodium 134 L (140-148) mmol/L Potassium 4.8 (3.6-5.2) mmol/L Chloride 104 (100-108) mmol/L Carbon Dioxide 22 (21-32) mmol/L Anion Gap 12.8 (5.0-14.0) mmol/L BUN 10 (7-18) mg/dL Creatinine 0.5 L (0.8-1.3) mg/dL Est Cr Clr Drug Dosing 176.85 mL/min Estimated GFR (MDRD) > 60 (>60) Glucose 91 (74-106) mg/dL Calcium 7.7 L (8.5-10.1) mg/dL Phosphorus 3.1 (2.5-4.9) mg/dL Magnesium 1.7 L (1.8-2.4) mg/dL Total Bilirubin 7.5 H (0.2-1.0) mg/dL AST 73 H (15-37) U/L ALT 21 (12-78) U/L Alkaline Phosphatase 120 H (46-116) U/L Ammonia 51 H (11-32) mmol/L Troponin I (0.000-0.056) ng/mL NT-Pro-B Natriuret Pep 593 H (5-125) pg/mL Total Protein 5.5 L (6.4-8.2) g/dL Albumin 2.8 L (3.4-5.0) g/dL Globulin 2.7 (2.3-3.5) g/dL Albumin/Globulin Ratio 1.0 L (1.2-2.2) Urine Color Urine Appearance Urine pH (4.5-8.0) Ur Specific [place] (1.008-1.030) Urine Protein (NEGATIVE) mg/dL Urine Glucose (UA) (NEGATIVE) mg/dL Urine Ketones (NEGATIVE) mg/dL Urine Occult Blood (NEGATIVE) Urine Nitrite (NEGAITVE) Urine Bilirubin (NEGATIVE) Urine Urobilinogen (NORMAL) mg/dL Ur Leukocyte Esterase (NEGATIVE) Urine RBC (0-5) Urine WBC (0-5) Ur Epithelial Cells Amorphous Sediment Urine Bacteria Urine Mucus 06/10/17 Range/Units 04:25 WBC (4.5-11.0) K/uL RBC (4.30-5.90) M/uL Hgb (12.0-15.0) g/dL Hct (40.0-54.0) % MCV (80-98) fL MCH (27-31) pg MCHC (32-36) % Plt Count (150-400) K/uL Neut % (Auto) (36-66) % Lymph % (Auto) (24-44) % [place] % (Auto) (2-6) % Eos % (Auto) (2-4) % Baso % (Auto) (0-1) % D-Dimer, Quantitative (0.0-400.0) ng/mL Puncture Site Rt radial ABG pH 7.462 H (7.350-7.450) ABG pCO2 28.8 L (35.0-42.0) mmHg ABG pO2 100.0 (75.0-100.0) mmHg ABG HCO3 20.3 L (22.0-26.0) mmol/L ABG Total CO2 19.0 L (23.0-27.0) mmol/L ABG O2 Saturation 98.0 (95.0-98.0) % ABG O2 Content 12.1 L (15.0-23.0) %vol ABG Base Excess -2.4 mm/L ABG Hemoglobin 8.8 L (13.5-18.0) g/dL ABG Oxyhemoglobin 96.1 % ABG Carboxyhemoglobin 1.4 (0.0-1.6) % ABG Methemoglobin 0.5 % Roman Test Passed O2 Delivery Device Bipap Oxygen Flow Rate L Sodium (140-148) mmol/L Potassium (3.6-5.2) mmol/L Chloride (100-108) mmol/L Carbon Dioxide (21-32) mmol/L Anion Gap (5.0-14.0) mmol/L BUN (7-18) mg/dL Creatinine (0.8-1.3) mg/dL Est Cr Clr Drug Dosing mL/min Estimated GFR (MDRD) (>60) Glucose (74-106) mg/dL Calcium (8.5-10.1) mg/dL Phosphorus (2.5-4.9) mg/dL Magnesium (1.8-2.4) mg/dL Total Bilirubin (0.2-1.0) mg/dL AST (15-37) U/L ALT (12-78) U/L Alkaline Phosphatase (46-116) U/L Ammonia (11-32) mmol/L Troponin I (0.000-0.056) ng/mL NT-Pro-B Natriuret Pep (5-125) pg/mL Total Protein (6.4-8.2) g/dL Albumin (3.4-5.0) g/dL Globulin (2.3-3.5) g/dL Albumin/Globulin Ratio (1.2-2.2) Urine Color Urine Appearance Urine pH (4.5-8.0) Ur Specific [place] (1.008-1.030) Urine Protein (NEGATIVE) mg/dL Urine Glucose (UA) (NEGATIVE) mg/dL Urine Ketones (NEGATIVE) mg/dL Urine Occult Blood (NEGATIVE) Urine Nitrite (NEGAITVE) Urine Bilirubin (NEGATIVE) Urine Urobilinogen (NORMAL) mg/dL Ur Leukocyte Esterase (NEGATIVE) Urine RBC (0-5) Urine WBC (0-5) Ur Epithelial Cells Amorphous Sediment Urine Bacteria Urine Mucus Victor Manuel Results Last 24 Hours: Microbiology 06/07/17 19:30 Gram Stain - Final Peritoneal Fluid Body Fluid Culture - Preliminary NO GROWTH AFTER 2 DAYS Med Orders - Current: Current Medications Furosemide (Lasix) 40 mg IVPUSH Q12H [facility] Last Admin: 06/10/17 06:28 Dose: 40 mg Albumin Human (Albumin 25%) 25 gm in 100 mls @ 25 mls/hr IV Q24H [facility] Stop: 06/10/17 17:59 Last Admin: 06/09/17 14:21 Dose: 25 mls/hr Albumin Human (Albumin 25%) 25 gm in 100 mls @ 25 mls/hr IV Q24H [facility] Stop: 06/10/17 21:59 Last Admin: 06/09/17 19:44 Dose: 25 mls/hr Aztreonam/Dextrose 1 gm/ (Premix) 50 mls @ 100 mls/hr IV Q8HR [facility] Meropenem 1 gm/ Sodium (Chloride) 100 mls @ 200 mls/hr IV Q8H [facility] Vancomycin HCl 1.8 gm/ Sodium (Chloride) 250 mls @ 167 mls/hr IV Q12H [facility] Magnesium Sulfate 2 gm/ Premix 50 mls @ 25 mls/hr IV ONETIME ONE Stop: 06/10/17 11:59 Last Admin: 06/10/17 09:15 Dose: 25 mls/hr Lactulose (Chronulac) 15 gm PO BID [facility] Last Admin: 06/10/17 09:13 Dose: 15 gm Magnesium Oxide (Magnesium Oxide) 400 mg PO BID [facility] Last Admin: 06/10/17 09:14 Dose: 400 mg Mineral Oil/White Petrolatum (Hydrophor Oint) 0 gm TOP BID [facility] Last Admin: 06/10/17 09:14 Dose: 1 applic Oxycodone HCl (Oxycodone) 5 mg PO Q4H PRN PRN Reason: PAIN Last Admin: 06/10/17 02:00 Dose: 5 mg Pantoprazole Sodium (Protonix) 40 mg PO ACBREAKFAST [facility] Last Admin: 06/10/17 07:40 Dose: 40 mg Spironolactone (Aldactone) 25 mg PO BIDDIURETIC [facility] Last Admin: 06/10/17 07:40 Dose: 25 mg Discontinued Medications Albuterol/Ipratropium (Duoneb 3.0-0.5 Mg/3 Ml) 3 ml NEB ONETIME STA Stop: 06/09/17 21:54 Last Admin: 06/09/17 22:00 Dose: 3 ml Bupivacaine HCl (Marcaine 0.5%) Confirm Administered Dose 50 ml .ROUTE .STK-MED ONE Stop: 06/03/17 12:26 Last Admin: 06/03/17 12:24 Dose: 5 ml Furosemide (Lasix) 40 mg PO BIDDIURETIC [facility] Last Admin: 06/09/17 07:42 Dose: 40 mg Hydrocortisone Sodium Succinate (Solu-Cortef) 100 mg IVPUSH ONETIME ONE Stop: 06/03/17 04:03 Last Admin: 06/03/17 04:48 Dose: 100 mg Dextrose/Lactated Ringer's (Dextrose 5%-Lactated Ringers) 1,000 mls @ 100 mls/ hr IV ASDIRECTED [facility] Last Admin: 06/02/17 15:03 Dose: 100 mls/hr Linezolid 600 mg/ Premix 300 mls @ 300 mls/hr IV Q12H [facility] Last Admin: 06/05/17 03:32 Dose: 300 mls/hr Lactated Ringer's (Ringers, Lactated) 500 mls @ 500 mls/hr IV BOLUS ONE Stop: 06/02/17 16:58 Last Admin: 06/02/17 16:10 Dose: 500 mls/hr Dextrose/Lactated Ringer's (Dextrose 5%-Lactated Ringers) 1,000 mls @ 150 mls/ hr IV ASDIRECTED [facility] Last Admin: 06/03/17 05:08 Dose: 150 mls/hr Sodium Chloride (Normal Saline) 1,000 mls @ 999 mls/hr IV .BOLUS ONE Stop: 06/02/17 21:06 Last Admin: 06/02/17 20:10 Dose: 999 mls/hr Sodium Chloride (Normal Saline) 1,000 mls @ 999 mls/hr IV .BOLUS ONE Stop: 06/02/17 22:08 Last Admin: 06/02/17 21:14 Dose: 999 mls/hr Lactated Ringer's (Ringers, Lactated) 1,000 mls @ 500 mls/hr IV ASDIRECTED [facility] Stop: 06/03/17 02:30 Last Admin: 06/03/17 00:43 Dose: 500 mls/hr Sodium Chloride (Normal Saline) 1,000 mls @ 1,000 drops/min IV .BOLUS ONE Stop: 06/03/17 02:54 Last Admin: 06/03/17 04:31 Dose: 1,000 drops/min Norepinephrine Bitartrate 4 mg (/ Dextrose/Water) 250 mls @ 7.5 mls/hr IV TITRATE DAVID; 2 MCG/MIN PRN Reason: Protocol Last Titration: 06/04/17 08:19 Dose: 0 mcg/min, 0 mls/hr Sodium Chloride (Normal Saline) 500 mls @ 999 mls/hr IV BOLUS [facility] Stop: 06/03/17 04:46 Last Admin: 06/03/17 04:20 Dose: 999 mls/hr Dextrose/Water (Dextrose 5% In Water) Confirm Administered Dose 250 mls @ as directed .ROUTE .STK-MED ONE Stop: 06/03/17 04:11 Last Admin: 06/03/17 04:29 Dose: Not Given Meropenem 500 mg/ Sodium (Chloride) 100 mls @ 200 mls/hr IV Q8H [facility] Last Admin: 06/03/17 05:42 Dose: 200 mls/hr Sodium Chloride (Normal Saline) 1,000 mls @ 999 mls/hr IV .BOLUS ONE Stop: 06/03/17 07:36 Last Admin: 06/03/17 06:44 Dose: 999 mls/hr Sodium Chloride (Normal Saline) 1,000 mls @ 500 mls/hr IV ASDIRECTED [facility]ID Last Admin: 06/03/17 07:00 Dose: 500 mls/hr Meropenem 500 mg/ Sodium (Chloride) 50 mls @ 100 mls/hr IV Q8HR [facility] Last Admin: 06/05/17 05:13 Dose: 100 mls/hr Magnesium Sulfate 2 gm/ Premix 50 mls @ 25 mls/hr IV Q6HR [facility] Stop: 06/06/17 05:59 Last Admin: 06/06/17 04:22 Dose: 25 mls/hr Linezolid (Zyvox) Confirm Administered Dose 100 mls @ as directed .ROUTE .STK- MED ONE Stop: 06/03/17 10:05 Sodium Chloride (Normal Saline) 1,000 mls @ 300 mls/hr IV ASDIRECTED [facility] Last Admin: 06/03/17 14:07 Dose: 300 mls/hr Dextrose/Lactated Ringer's (Dextrose 5%-Lactated Ringers) 1,000 mls @ 100 mls/ hr IV ASDIRECTED [facility] Last Admin: 06/03/17 14:07 Dose: 100 mls/hr Albumin Human (Albumin 25%) 25 gm in 100 mls @ 25 mls/hr IV Q24H [facility] Stop: 06/06/17 17:59 Last Admin: 06/06/17 15:19 Dose: 25 mls/hr Albumin Human (Albumin 25%) 25 gm in 100 mls @ 25 mls/hr IV Q24H [facility] Stop: 06/06/17 21:59 Last Admin: 06/06/17 19:25 Dose: 25 mls/hr Sodium Chloride (Normal Saline) 1,000 mls @ 25 mls/hr IV ASDIRECTED [facility] Dextrose/Lactated Ringer's (Dextrose 5%-Lactated Ringers) 1,000 mls @ 100 mls/ hr IV ASDIRECTED [facility] Last Admin: 06/04/17 01:09 Dose: 100 mls/hr Potassium Acetate 20 meq/ (Dextrose/Sodium Chloride) 1,010 mls @ 150 mls/hr IV .Q6H44M [facility] Last Admin: 06/05/17 07:20 Dose: 150 mls/hr Phytonadione 10 mg/ Sodium (Chloride) 51 mls @ 51 mls/hr IV ONETIME ONE Stop: 06/04/17 09:59 Last Admin: 06/04/17 09:04 Dose: 51 mls/hr Clindamycin Phosphate 900 mg/ (Sodium Chloride) 106 mls @ 212 mls/hr IV Q8H [facility] Last Admin: 06/09/17 16:45 Dose: 212 mls/hr Ciprofloxacin/Dextrose 400 mg/ (Premix) 200 mls @ 200 mls/hr IV Q12H [facility] Last Admin: 06/09/17 21:43 Dose: 200 mls/hr Potassium Phosphate 30 mmole/Lidocaine HCl 3 ml/ Sodium Chloride 263 mls @ 66 mls/hr IV Q4H [facility] Stop: 06/05/17 17:59 Last Admin: 06/05/17 13:36 Dose: 66 mls/hr Potassium Acetate 20 meq/ (Dextrose/Sodium Chloride) 1,010 mls @ 100 mls/hr IV ASDIRECTED [facility] Last Admin: 06/08/17 04:45 Dose: 100 mls/hr Sodium Chloride (Normal Saline) 80 mls @ 3 mls/sec IV ASDIRECTED [facility] Last Admin: 06/09/17 23:53 Dose: 3 mls/sec Aztreonam 1 gm/ Sodium (Chloride) 100 mls @ 200 mls/hr IV Q8HR [facility] Last Admin: 06/10/17 05:51 Dose: 200 mls/hr Meropenem 1 gm/ Sodium (Chloride) 100 mls @ 200 mls/hr IV Q8H [facility] Last Admin: 06/10/17 01:56 Dose: 200 mls/hr Vancomycin HCl 1.75 gm/ Sodium (Chloride) 500 mls @ 250 mls/hr IV Q12H [facility] Last Admin: 06/10/17 02:46 Dose: 250 mls/hr Iopamidol (Isovue-370 (76%)) 100 ml IV . DIRECTED [facility] Last Admin: 06/09/17 23:54 Dose: 100 ml Lactulose (Chronulac) 10 gm PO ONETIME ONE Stop: 06/07/17 15:01 Last Admin: 06/07/17 14:54 Dose: 10 gm Lidocaine HCl (Xylocaine 2% Jelly) 10 ml MUCMEM ONETIME ONE Stop: 06/02/17 20:19 Last Admin: 06/02/17 20:37 Dose: 10 ml Lidocaine HCl (Xylocaine 2% Jelly) 10 ml MUCMEM ONETIME ONE Stop: 06/10/17 00:48 Last Admin: 06/10/17 01:56 Dose: 10 ml Lidocaine/Epinephrine (Xylocaine 1% With Epinephrine 1:100,000) Confirm Administered Dose 50 ml .ROUTE .STK-MED ONE Stop: 06/03/17 12:26 Last Admin: 06/03/17 12:24 Dose: 5 ml Linezolid (Zyvox) 200 mg IRR .STK-MED ONE Stop: 06/03/17 12:28 Last Admin: 06/03/17 12:27 Dose: 200 mg Lisinopril (Prinivil) 10 mg PO DAILY [facility] Meropenem (Merrem) Confirm Administered Dose 500 mg .ROUTE .STK-MED ONE Stop: 06/03/17 10:05 Last Admin: 06/03/17 12:27 Dose: 500 mg Pantoprazole Sodium (Protonix Iv) 40 mg IV Q24H [facility] Last Admin: 06/04/17 15:12 Dose: 40 mg Propofol (Diprivan 20 Ml) Confirm Administered Dose 200 mg .ROUTE .STK-MED ONE Stop: 06/03/17 12:08 Sodium Chloride (Saline Flush) 10 ml FLUSH ASDIRECTED PRN PRN Reason: Keep Vein Open Tramadol HCl (Ultram) 0 mg PO Q4H PRN PRN Reason: PAIN Vancomycin HCl (Vancomycin) 1 gm IV .PHARMACY TO DOSE DAVID Stop: 06/10/17 08:00 Vancomycin HCl (Vancomycin) Confirm Administered Dose 2,000 mg .ROUTE .STK-MED ONE Stop: 06/10/17 02:29 Last Admin: 06/10/17 02:47 Dose: Not Given - Exam Quality Assessment: DVT Prophylaxis General: Alert, Oriented, Cooperative, Mild Distress Lungs: Clear to Auscultation, Normal Respiratory Effort Cardiovascular: Regular Rate, Regular Rhythm, No Murmurs GI/Abdominal Exam: Normal Bowel Sounds, Soft, Non-Tender, No Organomegaly, Distended. No: Guarding, Rigid, Rebound Extremities: Non-Tender, Pedal Edema Skin: Warm, Dry - Problem List Review Problem List Initiated/Reviewed/Updated: Yes - My Orders Last 24 Hours: My Active Orders 06/09/17 13:00 Lactulose [Chronulac] 15 gm PO BID 06/09/17 14:45 Consult to Physical Therapy [PT Evaluation and Treatment] [CONS] Routine 06/09/17 19:00 Furosemide [Lasix] 40 mg IVPUSH Q12H 06/10/17 00:44 Blood Culture x2 Reflex Set [OM.PC] Urgent 06/10/17 00:45 Insert Urinary Catheter [OM.PC] Q24H Urinary Catheter Assessment [RC] ASDIRECTED 06/10/17 01:00 CULTURE BLOOD [BC] Stat 06/10/17 01:10 CULTURE BLOOD [BC] Stat 06/10/17 01:35 CULTURE URINE [RM] Routine 06/10/17 09:00 Magnesium Oxide 400 mg PO BID 06/10/17 10:00 Magnesium Sulfate/Water [Magnesium Sulfate 2 GM in Water 50 ML] 2 gm Premix Bag 1 bag IV ONETIME Meropenem [Merrem] 1 gm Sodium Chloride 0.9% [Normal Saline] 100 ml IV Q8H 06/10/17 14:00 Aztreonam/Dextrose-Water [Azactam in Dextrose,Iso-Osmotic 1 GM/50 ML] 1 gm Premix Bag 1 bag IV Q8HR Vancomycin 1.8 gm Sodium Chloride 0.9% [Normal Saline] 250 ml IV Q12H 06/11/17 05:00 CBC WITH AUTO DIFF [HEME] Timed COMPREHENSIVE METABOLIC PN,CMP [CHEM] Timed MAGNESIUM [CHEM] Timed 06/11/17 05:11 AMMONIA VENOUS [CHEM] AM 06/11/17 13:30 VANCOMYCIN TROUGH [CHEM] Timed - Plan Plan:: ASSESSMENT AND PLAN 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 He did redevelop temperature elevation last night associated with his respiratory compromise, no evidence of underlying pulmonary infection and no other obvious source of infection has been identified. Antibiotics were changed broad- spectrum coverage pending culture results -Continue current antibiotic therapy with vancomycin, meropenem, and as active -Blood and urine cultures pending -local wound care -Discontinue lisinopril Cirrhosis - complicated by ascites, Pancytopenia, coagulopathy. Bilirubin level stable but still elevated, likely late effect of recent septic shock on top of an already delicate cirrhotic liver. -Repeat paracentesis today by Dr. Kramer which will hopefully improve respiratory status -Lactulose 15 g twice daily -Repeat ammonia level in the morning -Continue diuretics -Repeat labs in the morning Hypoxic respiratory compromise-no evidence of pulmonary embolism or pulmonary infection. There also was no evidence of significant pulmonary edema. Likely secondary to large volume ascites compromising respiratory excursion -Continue supplemental oxygen as needed -BiPAP as needed -Paracentesis today per Dr. Kramer Scrotal and peripheral edema-diuresis poor over the past 24 hours on current diuretic therapy -Saline lock IV -2 g sodium diet -Furosemide 40 mg IV every 12 hours Acute blood loss anemia - hemoglobin stable. No strong evidence for bleeding. -Hemoglobin daily Acute kidney injury - kidney function stable -Follow-up labs daily
[2017-06-10] MEDS ORDERED: Magnesium Sulfate/Water 2 GM in Premix Bag 1 BAG IV ONE (10:00)
[2017-06-10] MEDS: Meropenem 1 GM in Sodium Chloride 0.9% 100 ML IV SCH ×2 (10:25→17:23)
[2017-06-10] MEDS: Vancomycin 1.8 GM in Sodium Chloride 0.9% 250 ML IV SCH (13:33)
[2017-06-10] MEDS: Aztreonam/Dextrose-Water 1 GM in Premix Bag 1 BAG IV SCH ×2 (13:33→21:35)
[2017-06-11] MEDS: oxyCODONE 5 MG Tab PO PRN ×4 (01:07→22:43)
[2017-06-11] MEDS: Meropenem 1 GM in Sodium Chloride 0.9% 100 ML IV SCH ×3 (02:13→17:54)
[2017-06-11] MEDS: Vancomycin 1.8 GM in Sodium Chloride 0.9% 250 ML IV SCH ×2 (02:42→15:31)
[2017-06-11] MEDS: Aztreonam/Dextrose-Water 1 GM in Premix Bag 1 BAG IV SCH ×3 (05:18→21:18)
[2017-06-11] MEDS ORDERED: Linezolid 600 MG in Premix Bag 1 BAG IV ONE (05:44)
[2017-06-11] MEDS: Furosemide 40 MG/4 ML VIAL IVPUSH SCH (07:34)
[2017-06-11] MEDS: Spironolactone 25 MG Tab PO SCH ×2 (07:35→13:48)
[2017-06-11] MEDS: Pantoprazole 40 MG Tab.CR PO SCH (07:35)
[2017-06-11] MEDS: Magnesium Oxide 400 MG Tab PO SCH ×2 (09:14→21:18)
[2017-06-11] MEDS: Mineral Oil/Petrolatum,Hydrophilic Ointment 100 GM Jar TOP SCH ×2 (09:14→22:42)
[2017-06-11] MEDS: Lactulose Soln 10 GM/15 ML 15 ML UD Cup PO SCH ×2 (09:14→21:17)
[2017-06-11] MEDS ORDERED: Furosemide 40 MG/4 ML VIAL IVPUSH SCH (09:19)
--- NOTE | 2017-06-11 09:23 | PCM.PN ---
- General Info Date of Service: 06/11/17 Subjective Update: Mr. Beach has continued to experience shortness of breath likely related to large volume of ascites. He was seen by Dr. Kramer this morning and attempted paracentesis was made but only 100 mL of fluid was removed and this attempt. He feels discomfort in the abdomen related to distention from the fluid. Vital signs have been stable and he has remained afebrile. Functional Status: Reports: Pain Controlled, Tolerating Diet, Ambulating - Review of Systems General: Reports: Weakness. Denies: Fever, Chills Pulmonary: Reports: Shortness of Breath. Denies: Pleuritic Chest Pain, Cough, Sputum, Hemoptysis Cardiovascular: Reports: Dyspnea on Exertion. Denies: Chest Pain, Palpitations , Orthopnea, PND, Edema Gastrointestinal: Reports: No Symptoms - Patient Data Vitals - Most Recent: Last Vital Signs Temp 98.8 F 06/11/17 07:00 Pulse 96 06/11/17 09:00 Resp 18 06/11/17 09:00 BP 135/79 06/11/17 09:00 Pulse Ox 95 06/11/17 09:00 Weight - Most Recent: 282 lb 6.4 oz I&O - Last 24 Hours: Intake & Output 06/10/17 06/11/17 06/11/17 22:59 06:59 14:59 Intake Total 1075 1130 Output Total 300 750 Balance 775 380 Lab Results Last 24 Hours: Laboratory Results - last 24 hr 06/11/17 06/11/17 06/11/17 Range/Units 05:18 05:18 05:18 WBC 12.1 H (4.5-11.0) K/uL RBC 2.84 L (4.30-5.90) M/uL Hgb 8.9 L (12.0-15.0) g/dL Hct 26.2 L (40.0-54.0) % MCV 92 (80-98) fL MCH 31 (27-31) pg MCHC 34 (32-36) % Plt Count 39 L (150-400) K/uL Neut % (Auto) 72 H (36-66) % Lymph % (Auto) 15 L (24-44) % [place] % (Auto) 10 H (2-6) % Eos % (Auto) 2 (2-4) % Baso % (Auto) 0 (0-1) % Sodium 135 L (140-148) mmol/L Potassium 3.9 (3.6-5.2) mmol/L Chloride 105 (100-108) mmol/L Carbon Dioxide 22 (21-32) mmol/L Anion Gap 11.9 (5.0-14.0) mmol/L BUN 7 (7-18) mg/dL Creatinine 0.5 L (0.8-1.3) mg/dL Est Cr Clr Drug Dosing 176.85 mL/min Estimated GFR (MDRD) > 60 (>60) Glucose 99 (74-106) mg/dL Calcium 8.0 L (8.5-10.1) mg/dL Magnesium 1.9 (1.8-2.4) mg/dL Total Bilirubin 7.2 H (0.2-1.0) mg/dL AST 57 H (15-37) U/L ALT 23 (12-78) U/L Alkaline Phosphatase 127 H (46-116) U/L Ammonia 50 H (11-32) mmol/L Total Protein 5.7 L (6.4-8.2) g/dL Albumin 3.0 L (3.4-5.0) g/dL Globulin 2.7 (2.3-3.5) g/dL Albumin/Globulin Ratio 1.1 L (1.2-2.2) Victor Manuel Results Last 24 Hours: Microbiology 06/11/17 06:46 Gram Stain - Final Peritoneal Fluid 06/07/17 19:30 Gram Stain - Final Peritoneal Fluid Body Fluid Culture - Final NO GROWTH AFTER 3 DAYS 06/10/17 01:35 Urine Culture - Preliminary Urine, Catheterized NO GROWTH AFTER 1 DAY 06/10/17 01:00 Aerobic Blood Culture - Preliminary Blood - Venous - Lab Draw NO GROWTH AFTER 1 DAY Anaerobic Blood Culture - Preliminary NO GROWTH AFTER 1 DAY 06/10/17 01:10 Aerobic Blood Culture - Preliminary Blood - Venous NO GROWTH AFTER 1 DAY Anaerobic Blood Culture - Preliminary NO GROWTH AFTER 1 DAY Med Orders - Current: Current Medications Furosemide (Lasix) 60 mg IVPUSH Q12H DAVID Aztreonam/Dextrose 1 gm/ (Premix) 50 mls @ 100 mls/hr IV Q8HR DAVID Last Admin: 06/11/17 05:18 Dose: 100 mls/hr Meropenem 1 gm/ Sodium (Chloride) 100 mls @ 200 mls/hr IV Q8H [facility]ID Last Admin: 06/11/17 09:14 Dose: 200 mls/hr Vancomycin HCl 1.8 gm/ Sodium (Chloride) 250 mls @ 167 mls/hr IV Q12H [facility]ID Last Admin: 06/11/17 02:42 Dose: 167 mls/hr Lactulose (Chronulac) 15 gm PO BID DAVID Last Admin: 06/11/17 09:14 Dose: 15 gm Magnesium Oxide (Magnesium Oxide) 400 mg PO BID DAVID Last Admin: 06/11/17 09:14 Dose: 400 mg Mineral Oil/White Petrolatum (Hydrophor Oint) 0 gm TOP BID DAVID Last Admin: 06/11/17 09:14 Dose: 1 applic Oxycodone HCl (Oxycodone) 5 mg PO Q4H PRN PRN Reason: PAIN Last Admin: 06/11/17 07:40 Dose: 5 mg Pantoprazole Sodium (Protonix) 40 mg PO ACBREAKFAST DAVID Last Admin: 06/11/17 07:35 Dose: 40 mg Spironolactone (Aldactone) 25 mg PO BIDDIURETIC DAVID Last Admin: 06/11/17 07:35 Dose: 25 mg Discontinued Medications Albuterol/Ipratropium (Duoneb 3.0-0.5 Mg/3 Ml) 3 ml NEB ONETIME STA Stop: 06/09/17 21:54 Last Admin: 06/09/17 22:00 Dose: 3 ml Bupivacaine HCl (Marcaine 0.5%) Confirm Administered Dose 50 ml .ROUTE .STK-MED ONE Stop: 06/03/17 12:26 Last Admin: 06/03/17 12:24 Dose: 5 ml Furosemide (Lasix) 40 mg PO BIDDIURETIC DAVID Last Admin: 06/09/17 07:42 Dose: 40 mg Furosemide (Lasix) 40 mg IVPUSH Q12H DAVID Last Admin: 06/11/17 07:34 Dose: 40 mg Hydrocortisone Sodium Succinate (Solu-Cortef) 100 mg IVPUSH ONETIME ONE Stop: 06/03/17 04:03 Last Admin: 06/03/17 04:48 Dose: 100 mg Dextrose/Lactated Ringer's (Dextrose 5%-Lactated Ringers) 1,000 mls @ 100 mls/ hr IV ASDIRECTED DAVID Last Admin: 06/02/17 15:03 Dose: 100 mls/hr Linezolid 600 mg/ Premix 300 mls @ 300 mls/hr IV Q12H DAVID Last Admin: 06/05/17 03:32 Dose: 300 mls/hr Lactated Ringer's (Ringers, Lactated) 500 mls @ 500 mls/hr IV BOLUS ONE Stop: 06/02/17 16:58 Last Admin: 06/02/17 16:10 Dose: 500 mls/hr Dextrose/Lactated Ringer's (Dextrose 5%-Lactated Ringers) 1,000 mls @ 150 mls/ hr IV ASDIRECTED DAVID Last Admin: 06/03/17 05:08 Dose: 150 mls/hr Sodium Chloride (Normal Saline) 1,000 mls @ 999 mls/hr IV .BOLUS ONE Stop: 06/02/17 21:06 Last Admin: 06/02/17 20:10 Dose: 999 mls/hr Sodium Chloride (Normal Saline) 1,000 mls @ 999 mls/hr IV .BOLUS ONE Stop: 06/02/17 22:08 Last Admin: 06/02/17 21:14 Dose: 999 mls/hr Lactated Ringer's (Ringers, Lactated) 1,000 mls @ 500 mls/hr IV ASDIRECTED DAVID Stop: 06/03/17 02:30 Last Admin: 06/03/17 00:43 Dose: 500 mls/hr Sodium Chloride (Normal Saline) 1,000 mls @ 1,000 drops/min IV .BOLUS ONE Stop: 06/03/17 02:54 Last Admin: 06/03/17 04:31 Dose: 1,000 drops/min Norepinephrine Bitartrate 4 mg (/ Dextrose/Water) 250 mls @ 7.5 mls/hr IV TITRATE DAVID; 2 MCG/MIN PRN Reason: Protocol Last Titration: 06/04/17 08:19 Dose: 0 mcg/min, 0 mls/hr Sodium Chloride (Normal Saline) 500 mls @ 999 mls/hr IV BOLUS DAVID Stop: 06/03/17 04:46 Last Admin: 06/03/17 04:20 Dose: 999 mls/hr Dextrose/Water (Dextrose 5% In Water) Confirm Administered Dose 250 mls @ as directed .ROUTE .[facility]-MED ONE Stop: 06/03/17 04:11 Last Admin: 06/03/17 04:29 Dose: Not Given Meropenem 500 mg/ Sodium (Chloride) 100 mls @ 200 mls/hr IV Q8H [facility] Last Admin: 06/03/17 05:42 Dose: 200 mls/hr Sodium Chloride (Normal Saline) 1,000 mls @ 999 mls/hr IV .BOLUS ONE Stop: 06/03/17 07:36 Last Admin: 06/03/17 06:44 Dose: 999 mls/hr Sodium Chloride (Normal Saline) 1,000 mls @ 500 mls/hr IV ASDIRECTED [facility] Last Admin: 06/03/17 07:00 Dose: 500 mls/hr Meropenem 500 mg/ Sodium (Chloride) 50 mls @ 100 mls/hr IV Q8HR [facility] Last Admin: 06/05/17 05:13 Dose: 100 mls/hr Magnesium Sulfate 2 gm/ Premix 50 mls @ 25 mls/hr IV Q6HR [facility] Stop: 06/06/17 05:59 Last Admin: 06/06/17 04:22 Dose: 25 mls/hr Linezolid (Zyvox) Confirm Administered Dose 100 mls @ as directed .ROUTE .STK- MED ONE Stop: 06/03/17 10:05 Sodium Chloride (Normal Saline) 1,000 mls @ 300 mls/hr IV ASDIRECTED [facility] Last Admin: 06/03/17 14:07 Dose: 300 mls/hr Dextrose/Lactated Ringer's (Dextrose 5%-Lactated Ringers) 1,000 mls @ 100 mls/ hr IV ASDIRECTED [facility] Last Admin: 06/03/17 14:07 Dose: 100 mls/hr Albumin Human (Albumin 25%) 25 gm in 100 mls @ 25 mls/hr IV Q24H [facility] Stop: 06/06/17 17:59 Last Admin: 06/06/17 15:19 Dose: 25 mls/hr Albumin Human (Albumin 25%) 25 gm in 100 mls @ 25 mls/hr IV Q24H [facility] Stop: 06/06/17 21:59 Last Admin: 06/06/17 19:25 Dose: 25 mls/hr Sodium Chloride (Normal Saline) 1,000 mls @ 25 mls/hr IV ASDIRECTED [facility] Dextrose/Lactated Ringer's (Dextrose 5%-Lactated Ringers) 1,000 mls @ 100 mls/ hr IV ASDIRECTED [facility] Last Admin: 06/04/17 01:09 Dose: 100 mls/hr Potassium Acetate 20 meq/ (Dextrose/Sodium Chloride) 1,010 mls @ 150 mls/hr IV .Q6H44M [facility] Last Admin: 06/05/17 07:20 Dose: 150 mls/hr Phytonadione 10 mg/ Sodium (Chloride) 51 mls @ 51 mls/hr IV ONETIME ONE Stop: 06/04/17 09:59 Last Admin: 06/04/17 09:04 Dose: 51 mls/hr Clindamycin Phosphate 900 mg/ (Sodium Chloride) 106 mls @ 212 mls/hr IV Q8H [facility] Last Admin: 06/09/17 16:45 Dose: 212 mls/hr Ciprofloxacin/Dextrose 400 mg/ (Premix) 200 mls @ 200 mls/hr IV Q12H [facility] Last Admin: 06/09/17 21:43 Dose: 200 mls/hr Potassium Phosphate 30 mmole/Lidocaine HCl 3 ml/ Sodium Chloride 263 mls @ 66 mls/hr IV Q4H [facility] Stop: 06/05/17 17:59 Last Admin: 06/05/17 13:36 Dose: 66 mls/hr Potassium Acetate 20 meq/ (Dextrose/Sodium Chloride) 1,010 mls @ 100 mls/hr IV ASDIRECTED [facility] Last Admin: 06/08/17 04:45 Dose: 100 mls/hr Albumin Human (Albumin 25%) 25 gm in 100 mls @ 25 mls/hr IV Q24H [facility] Stop: 06/10/17 17:59 Last Admin: 06/10/17 13:32 Dose: 25 mls/hr Albumin Human (Albumin 25%) 25 gm in 100 mls @ 25 mls/hr IV Q24H [facility] Stop: 06/10/17 21:59 Last Admin: 06/10/17 18:02 Dose: 25 mls/hr Sodium Chloride (Normal Saline) 80 mls @ 3 mls/sec IV ASDIRECTED [facility] Last Admin: 06/09/17 23:53 Dose: 3 mls/sec Aztreonam 1 gm/ Sodium (Chloride) 100 mls @ 200 mls/hr IV Q8HR [facility] Last Admin: 06/10/17 05:51 Dose: 200 mls/hr Meropenem 1 gm/ Sodium (Chloride) 100 mls @ 200 mls/hr IV Q8H [facility] Last Admin: 06/10/17 01:56 Dose: 200 mls/hr Vancomycin HCl 1.75 gm/ Sodium (Chloride) 500 mls @ 250 mls/hr IV Q12H [facility] Last Admin: 06/10/17 02:46 Dose: 250 mls/hr Magnesium Sulfate 2 gm/ Premix 50 mls @ 25 mls/hr IV ONETIME ONE Stop: 06/10/17 11:59 Last Admin: 06/10/17 09:15 Dose: 25 mls/hr Linezolid 600 mg/ Premix 300 mls @ 300 mls/hr IV ONETIME ONE Stop: 06/11/17 06:43 Last Admin: 06/11/17 05:56 Dose: 300 mls/hr Linezolid (Zyvox) Confirm Administered Dose 300 mls @ as directed .ROUTE .STK- MED ONE Stop: 06/11/17 05:46 Last Admin: 06/11/17 05:57 Dose: Not Given Iopamidol (Isovue-370 (76%)) 100 ml IV . DIRECTED [facility] Last Admin: 06/09/17 23:54 Dose: 100 ml Lactulose (Chronulac) 10 gm PO ONETIME ONE Stop: 06/07/17 15:01 Last Admin: 06/07/17 14:54 Dose: 10 gm Lactulose (Chronulac) 15 gm PO BID [facility] Last Admin: 06/10/17 09:13 Dose: 15 gm Lidocaine HCl (Xylocaine 2% Jelly) 10 ml MUCMEM ONETIME ONE Stop: 06/02/17 20:19 Last Admin: 06/02/17 20:37 Dose: 10 ml Lidocaine HCl (Xylocaine 2% Jelly) 10 ml MUCMEM ONETIME ONE Stop: 06/10/17 00:48 Last Admin: 06/10/17 01:56 Dose: 10 ml Lidocaine/Epinephrine (Xylocaine 1% With Epinephrine 1:100,000) Confirm Administered Dose 50 ml .ROUTE .STK-MED ONE Stop: 06/03/17 12:26 Last Admin: 06/03/17 12:24 Dose: 5 ml Linezolid (Zyvox) 200 mg IRR .STK-MED ONE Stop: 06/03/17 12:28 Last Admin: 06/03/17 12:27 Dose: 200 mg Lisinopril (Prinivil) 10 mg PO DAILY [facility] Meropenem (Merrem) Confirm Administered Dose 500 mg .ROUTE .STK-MED ONE Stop: 06/03/17 10:05 Last Admin: 06/03/17 12:27 Dose: 500 mg Pantoprazole Sodium (Protonix Iv) 40 mg IV Q24H [facility] Last Admin: 06/04/17 15:12 Dose: 40 mg Propofol (Diprivan 20 Ml) Confirm Administered Dose 200 mg .ROUTE .STK-MED ONE Stop: 06/03/17 12:08 Sodium Chloride (Saline Flush) 10 ml FLUSH ASDIRECTED PRN PRN Reason: Keep Vein Open Tramadol HCl (Ultram) 0 mg PO Q4H PRN PRN Reason: PAIN Vancomycin HCl (Vancomycin) 1 gm IV .PHARMACY TO DOSE DAVID Stop: 06/10/17 08:00 Vancomycin HCl (Vancomycin) Confirm Administered Dose 2,000 mg .ROUTE .STK-MED ONE Stop: 06/10/17 02:29 Last Admin: 06/10/17 02:47 Dose: Not Given - Exam Quality Assessment: DVT Prophylaxis General: Alert, Oriented, Cooperative, Mild Distress Lungs: Clear to Auscultation, Normal Respiratory Effort Cardiovascular: Regular Rate, Regular Rhythm, No Murmurs GI/Abdominal Exam: Normal Bowel Sounds, No Organomegaly, Distended, Tender. No : Guarding, Rigid, Rebound Extremities: Non-Tender, Pedal Edema Skin: Warm, Dry - Problem List Review Problem List Initiated/Reviewed/Updated: Yes - My Orders Last 24 Hours: My Active Orders 06/10/17 09:00 Magnesium Oxide 400 mg PO BID 06/10/17 10:00 Meropenem [Merrem] 1 gm Sodium Chloride 0.9% [Normal Saline] 100 ml IV Q8H 06/10/17 14:00 Aztreonam/Dextrose-Water [Azactam in Dextrose,Iso-Osmotic 1 GM/50 ML] 1 gm Premix Bag 1 bag IV Q8HR Vancomycin 1.8 gm Sodium Chloride 0.9% [Normal Saline] 250 ml IV Q12H 06/10/17 21:00 Lactulose [Chronulac] 15 gm PO BID 06/11/17 09:19 Furosemide [Lasix] 60 mg IVPUSH Q12H 06/11/17 13:30 VANCOMYCIN TROUGH [CHEM] Routine 06/12/17 05:00 CBC WITH AUTO DIFF [HEME] Timed COMPREHENSIVE METABOLIC PN,CMP [CHEM] Timed MAGNESIUM [CHEM] Timed - Plan Plan:: ASSESSMENT AND PLAN 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 No recurrent temperature elevations over the past 24 hours, white blood cell count remains modestly elevated but has improved during that period of time. Persistent large volume ascites, further attempt at paracentesis will be made later today by Dr. Kramer. -Continue current antibiotic therapy with vancomycin, meropenem, and as active -Blood and urine cultures pending -local wound care -Discontinue lisinopril Cirrhosis - complicated by ascites, Pancytopenia, coagulopathy. -Repeat paracentesis today by Dr. Kramer which will hopefully improve respiratory status -Lactulose 15 g twice daily -Continue diuretics -Repeat labs in the morning Hypoxic respiratory compromise-no evidence of pulmonary embolism or pulmonary infection. There also was no evidence of significant pulmonary edema. Likely secondary to large volume ascites compromising respiratory excursion -Continue supplemental oxygen as needed -BiPAP as needed -Paracentesis today per Dr. Kramer Scrotal and peripheral edema-diuresis poor over the past 24 hours on current diuretic therapy -Saline lock IV -2 g sodium diet -Furosemide 60 mg IV every 12 hours Acute blood loss anemia - hemoglobin stable. No strong evidence for bleeding. -Hemoglobin daily Acute kidney injury - kidney function stable -Follow-up labs daily
[2017-06-11] MEDS: Furosemide 40 MG, Furosemide 20 MG IV SCH ×2 (17:54)
[2017-06-12] MEDS: Meropenem 1 GM in Sodium Chloride 0.9% 100 ML IV SCH ×3 (02:22→17:03)
[2017-06-12] MEDS: Vancomycin 1.8 GM in Sodium Chloride 0.9% 250 ML IV SCH (03:04)
[2017-06-12] MEDS: Aztreonam/Dextrose-Water 1 GM in Premix Bag 1 BAG IV SCH (05:04)
[2017-06-12] MEDS ORDERED: Linezolid 600 MG in Premix Bag 1 BAG IV ONE (06:00)
[2017-06-12] MEDS: Furosemide 40 MG, Furosemide 20 MG IV SCH ×2 (08:07)
[2017-06-12] MEDS: Lactulose Soln 10 GM/15 ML 15 ML UD Cup PO SCH ×2 (08:08→21:22)
[2017-06-12] MEDS: Mineral Oil/Petrolatum,Hydrophilic Ointment 100 GM Jar TOP SCH ×2 (08:08→21:22)
[2017-06-12] MEDS: Spironolactone 25 MG Tab PO SCH ×2 (08:08→13:20)
[2017-06-12] MEDS: Pantoprazole 40 MG Tab.CR PO SCH (08:08)
[2017-06-12] MEDS: Magnesium Oxide 400 MG Tab PO SCH ×2 (08:08→21:22)
[2017-06-12] MEDS: oxyCODONE 5 MG Tab PO PRN ×2 (08:11→21:29)
--- NOTE | 2017-06-12 09:28 | PCM.PN ---
- General Info Date of Service: 06/12/17 Subjective Update: Mr. Beach has done well since yesterday, vital signs have been stable and he has remained afebrile. White blood cell count does remain modestly elevated in the range of 14,000. Paracentesis performed this morning by Dr. Kramer, 3 L were removed. Patient reports breathing feels better and he is less distended. Functional Status: Reports: Pain Controlled, Tolerating Diet, Ambulating - Review of Systems General: Reports: Weakness. Denies: Fever, Chills Pulmonary: Reports: No Symptoms Cardiovascular: Reports: No Symptoms Gastrointestinal: Reports: No Symptoms - Patient Data Vitals - Most Recent: Last Vital Signs Temp 99 F 06/12/17 08:00 Pulse 97 06/11/17 17:00 Resp 16 06/12/17 08:00 BP 123/64 06/12/17 08:07 Pulse Ox 96 06/12/17 08:00 Weight - Most Recent: 282 lb 6.594 oz I&O - Last 24 Hours: Intake & Output 06/11/17 06/12/17 06/12/17 22:59 06:59 14:59 Intake Total 830 1617 100 Output Total 800 500 Balance 30 1117 100 Lab Results Last 24 Hours: Laboratory Results - last 24 hr 06/11/17 06/12/17 06/12/17 Range/Units 13:45 05:17 05:17 WBC 14.9 H (4.5-11.0) K/uL RBC 3.08 L (4.30-5.90) M/uL Hgb 9.7 L (12.0-15.0) g/dL Hct 29.0 L (40.0-54.0) % MCV 94 (80-98) fL MCH 32 H (27-31) pg MCHC 33 (32-36) % Plt Count 50 L (150-400) K/uL Neut % (Auto) 74 H (36-66) % Lymph % (Auto) 15 L (24-44) % Hetting[place] % (Auto) 9 H (2-6) % Eos % (Auto) 2 (2-4) % Baso % (Auto) 0 (0-1) % Sodium 135 L (140-148) mmol/L Potassium 3.9 (3.6-5.2) mmol/L Chloride 104 (100-108) mmol/L Carbon Dioxide 23 (21-32) mmol/L Anion Gap 11.9 (5.0-14.0) mmol/L BUN 8 (7-18) mg/dL Creatinine 0.6 L (0.8-1.3) mg/dL Est Cr Clr Drug Dosing 147.38 mL/min Estimated GFR (MDRD) > 60 (>60) Glucose 92 (74-106) mg/dL Calcium 8.0 L (8.5-10.1) mg/dL Magnesium 1.8 (1.8-2.4) mg/dL Total Bilirubin 7.4 H (0.2-1.0) mg/dL AST 79 H (15-37) U/L ALT 30 (12-78) U/L Alkaline Phosphatase 135 H (46-116) U/L Total Protein 5.9 L (6.4-8.2) g/dL Albumin 2.8 L (3.4-5.0) g/dL Globulin 3.1 (2.3-3.5) g/dL Albumin/Globulin Ratio 0.9 L (1.2-2.2) Vancomycin Trough 12.9 (10.0-20.0) ug/mL Victor Manuel Results Last 24 Hours: Microbiology 06/12/17 06:50 Gram Stain - Final Peritoneal Fluid 06/10/17 01:35 Urine Culture - Final Urine, Catheterized NO GROWTH AFTER 2 DAYS 06/11/17 06:46 Gram Stain - Final Peritoneal Fluid Body Fluid Culture - Preliminary NO GROWTH AFTER 1 DAY 06/10/17 01:00 Aerobic Blood Culture - Preliminary Blood - Venous - Lab Draw NO GROWTH AFTER 2 DAYS Anaerobic Blood Culture - Preliminary NO GROWTH AFTER 2 DAYS 06/10/17 01:10 Aerobic Blood Culture - Preliminary Blood - Venous NO GROWTH AFTER 2 DAYS Anaerobic Blood Culture - Preliminary NO GROWTH AFTER 2 DAYS 06/07/17 19:30 Gram Stain - Final Peritoneal Fluid Body Fluid Culture - Final NO GROWTH AFTER 3 DAYS Med Orders - Current: Current Medications Bumetanide (Bumex) 2 mg IVPUSH Q12H DAVID Meropenem 1 gm/ Sodium (Chloride) 100 mls @ 200 mls/hr IV Q8H DAVID Last Admin: 06/12/17 02:22 Dose: 200 mls/hr Clindamycin Phosphate 600 mg/ (Sodium Chloride) 54 mls @ 100 mls/hr IV Q8H DAVID Lactulose (Chronulac) 15 gm PO BID DAVID Last Admin: 06/12/17 08:08 Dose: 15 gm Magnesium Oxide (Magnesium Oxide) 400 mg PO BID DAVID Last Admin: 06/12/17 08:08 Dose: 400 mg Mineral Oil/White Petrolatum (Hydrophor Oint) 0 gm TOP BID DAVID Last Admin: 06/12/17 08:08 Dose: 1 applic Oxycodone HCl (Oxycodone) 5 mg PO Q4H PRN PRN Reason: PAIN Last Admin: 06/12/17 08:11 Dose: 5 mg Pantoprazole Sodium (Protonix) 40 mg PO ACBREAKFAST DAVID Last Admin: 06/12/17 08:08 Dose: 40 mg Spironolactone (Aldactone) 50 mg PO BIDDIURETIC DAVID Discontinued Medications Albuterol/Ipratropium (Duoneb 3.0-0.5 Mg/3 Ml) 3 ml NEB ONETIME STA Stop: 06/09/17 21:54 Last Admin: 06/09/17 22:00 Dose: 3 ml Bupivacaine HCl (Marcaine 0.5%) Confirm Administered Dose 50 ml .ROUTE .STK-MED ONE Stop: 06/03/17 12:26 Last Admin: 06/03/17 12:24 Dose: 5 ml Furosemide (Lasix) 40 mg PO BIDDIURETIC DAVID Last Admin: 06/09/17 07:42 Dose: 40 mg Furosemide (Lasix) 40 mg IVPUSH Q12H DAVID Last Admin: 06/11/17 07:34 Dose: 40 mg Furosemide 40 mg/ Furosemide (20 mg) 60 mg IV Q12H DAVID Last Admin: 06/12/17 08:07 Dose: 60 mg Hydrocortisone Sodium Succinate (Solu-Cortef) 100 mg IVPUSH ONETIME ONE Stop: 06/03/17 04:03 Last Admin: 06/03/17 04:48 Dose: 100 mg Dextrose/Lactated Ringer's (Dextrose 5%-Lactated Ringers) 1,000 mls @ 100 mls/ hr IV ASDIRECTED [facility] Last Admin: 06/02/17 15:03 Dose: 100 mls/hr Linezolid 600 mg/ Premix 300 mls @ 300 mls/hr IV Q12H DAVID Last Admin: 06/05/17 03:32 Dose: 300 mls/hr Lactated Ringer's (Ringers, Lactated) 500 mls @ 500 mls/hr IV BOLUS ONE Stop: 06/02/17 16:58 Last Admin: 06/02/17 16:10 Dose: 500 mls/hr Dextrose/Lactated Ringer's (Dextrose 5%-Lactated Ringers) 1,000 mls @ 150 mls/ hr IV ASDIRECTED DAVID Last Admin: 06/03/17 05:08 Dose: 150 mls/hr Sodium Chloride (Normal Saline) 1,000 mls @ 999 mls/hr IV .BOLUS ONE Stop: 06/02/17 21:06 Last Admin: 06/02/17 20:10 Dose: 999 mls/hr Sodium Chloride (Normal Saline) 1,000 mls @ 999 mls/hr IV .BOLUS ONE Stop: 06/02/17 22:08 Last Admin: 06/02/17 21:14 Dose: 999 mls/hr Lactated Ringer's (Ringers, Lactated) 1,000 mls @ 500 mls/hr IV ASDIRECTED DAVID Stop: 06/03/17 02:30 Last Admin: 06/03/17 00:43 Dose: 500 mls/hr Sodium Chloride (Normal Saline) 1,000 mls @ 1,000 drops/min IV .BOLUS ONE Stop: 06/03/17 02:54 Last Admin: 06/03/17 04:31 Dose: 1,000 drops/min Norepinephrine Bitartrate 4 mg (/ Dextrose/Water) 250 mls @ 7.5 mls/hr IV TITRATE DAVID; 2 MCG/MIN PRN Reason: Protocol Last Titration: 06/04/17 08:19 Dose: 0 mcg/min, 0 mls/hr Sodium Chloride (Normal Saline) 500 mls @ 999 mls/hr IV BOLUS DAVID Stop: 06/03/17 04:46 Last Admin: 06/03/17 04:20 Dose: 999 mls/hr Dextrose/Water (Dextrose 5% In Water) Confirm Administered Dose 250 mls @ as directed .ROUTE .STK-MED ONE Stop: 06/03/17 04:11 Last Admin: 06/03/17 04:29 Dose: Not Given Meropenem 500 mg/ Sodium (Chloride) 100 mls @ 200 mls/hr IV Q8H DAVID Last Admin: 06/03/17 05:42 Dose: 200 mls/hr Sodium Chloride (Normal Saline) 1,000 mls @ 999 mls/hr IV .BOLUS ONE Stop: 06/03/17 07:36 Last Admin: 06/03/17 06:44 Dose: 999 mls/hr Sodium Chloride (Normal Saline) 1,000 mls @ 500 mls/hr IV ASDIRECTED DAVID Last Admin: 06/03/17 07:00 Dose: 500 mls/hr Meropenem 500 mg/ Sodium (Chloride) 50 mls @ 100 mls/hr IV Q8HR DAVID Last Admin: 06/05/17 05:13 Dose: 100 mls/hr Magnesium Sulfate 2 gm/ Premix 50 mls @ 25 mls/hr IV Q6HR DAVID Stop: 06/06/17 05:59 Last Admin: 06/06/17 04:22 Dose: 25 mls/hr Linezolid (Zyvox) Confirm Administered Dose 100 mls @ as directed .ROUTE .STK- MED ONE Stop: 06/03/17 10:05 Sodium Chloride (Normal Saline) 1,000 mls @ 300 mls/hr IV ASDIRECTED DAVID Last Admin: 06/03/17 14:07 Dose: 300 mls/hr Dextrose/Lactated Ringer's (Dextrose 5%-Lactated Ringers) 1,000 mls @ 100 mls/ hr IV ASDIRECTED DAVID Last Admin: 06/03/17 14:07 Dose: 100 mls/hr Albumin Human (Albumin 25%) 25 gm in 100 mls @ 25 mls/hr IV Q24H [facility] Stop: 06/06/17 17:59 Last Admin: 06/06/17 15:19 Dose: 25 mls/hr Albumin Human (Albumin 25%) 25 gm in 100 mls @ 25 mls/hr IV Q24H [facility] Stop: 06/06/17 21:59 Last Admin: 06/06/17 19:25 Dose: 25 mls/hr Sodium Chloride (Normal Saline) 1,000 mls @ 25 mls/hr IV ASDIRECTED DAVID Dextrose/Lactated Ringer's (Dextrose 5%-Lactated Ringers) 1,000 mls @ 100 mls/ hr IV ASDIRECTED [facility] Last Admin: 06/04/17 01:09 Dose: 100 mls/hr Potassium Acetate 20 meq/ (Dextrose/Sodium Chloride) 1,010 mls @ 150 mls/hr IV .Q6H44M [facility] Last Admin: 06/05/17 07:20 Dose: 150 mls/hr Phytonadione 10 mg/ Sodium (Chloride) 51 mls @ 51 mls/hr IV ONETIME ONE Stop: 06/04/17 09:59 Last Admin: 06/04/17 09:04 Dose: 51 mls/hr Clindamycin Phosphate 900 mg/ (Sodium Chloride) 106 mls @ 212 mls/hr IV Q8H [facility] Last Admin: 06/09/17 16:45 Dose: 212 mls/hr Ciprofloxacin/Dextrose 400 mg/ (Premix) 200 mls @ 200 mls/hr IV Q12H [facility] Last Admin: 06/09/17 21:43 Dose: 200 mls/hr Potassium Phosphate 30 mmole/Lidocaine HCl 3 ml/ Sodium Chloride 263 mls @ 66 mls/hr IV Q4H [facility] Stop: 06/05/17 17:59 Last Admin: 06/05/17 13:36 Dose: 66 mls/hr Potassium Acetate 20 meq/ (Dextrose/Sodium Chloride) 1,010 mls @ 100 mls/hr IV ASDIRECTED [facility] Last Admin: 06/08/17 04:45 Dose: 100 mls/hr Albumin Human (Albumin 25%) 25 gm in 100 mls @ 25 mls/hr IV Q24H [facility] Stop: 06/10/17 17:59 Last Admin: 06/10/17 13:32 Dose: 25 mls/hr Albumin Human (Albumin 25%) 25 gm in 100 mls @ 25 mls/hr IV Q24H [facility] Stop: 06/10/17 21:59 Last Admin: 06/10/17 18:02 Dose: 25 mls/hr Sodium Chloride (Normal Saline) 80 mls @ 3 mls/sec IV ASDIRECTED [facility] Last Admin: 06/09/17 23:53 Dose: 3 mls/sec Aztreonam 1 gm/ Sodium (Chloride) 100 mls @ 200 mls/hr IV Q8HR [facility] Last Admin: 06/10/17 05:51 Dose: 200 mls/hr Meropenem 1 gm/ Sodium (Chloride) 100 mls @ 200 mls/hr IV Q8H [facility] Last Admin: 06/10/17 01:56 Dose: 200 mls/hr Vancomycin HCl 1.75 gm/ Sodium (Chloride) 500 mls @ 250 mls/hr IV Q12H [facility] Last Admin: 06/10/17 02:46 Dose: 250 mls/hr Aztreonam/Dextrose 1 gm/ (Premix) 50 mls @ 100 mls/hr IV Q8HR [facility] Last Admin: 06/12/17 05:04 Dose: 100 mls/hr Vancomycin HCl 1.8 gm/ Sodium (Chloride) 250 mls @ 167 mls/hr IV Q12H [facility] Last Admin: 06/11/17 02:42 Dose: 167 mls/hr Magnesium Sulfate 2 gm/ Premix 50 mls @ 25 mls/hr IV ONETIME ONE Stop: 06/10/17 11:59 Last Admin: 06/10/17 09:15 Dose: 25 mls/hr Linezolid 600 mg/ Premix 300 mls @ 300 mls/hr IV ONETIME ONE Stop: 06/11/17 06:43 Last Admin: 06/11/17 05:56 Dose: 300 mls/hr Linezolid (Zyvox) Confirm Administered Dose 300 mls @ as directed .ROUTE .STK- MED ONE Stop: 06/11/17 05:46 Last Admin: 06/11/17 05:57 Dose: Not Given Vancomycin HCl 1.8 gm/ Sodium (Chloride) 250 mls @ 167 mls/hr IV Q12H [facility] Last Admin: 06/12/17 03:04 Dose: 167 mls/hr Linezolid 600 mg/ Premix 300 mls @ 300 mls/hr IV ONETIME ONE Stop: 06/12/17 06:59 Last Admin: 06/12/17 06:16 Dose: 300 mls/hr Iopamidol (Isovue-370 (76%)) 100 ml IV . DIRECTED [facility] Last Admin: 06/09/17 23:54 Dose: 100 ml Lactulose (Chronulac) 10 gm PO ONETIME ONE Stop: 06/07/17 15:01 Last Admin: 06/07/17 14:54 Dose: 10 gm Lactulose (Chronulac) 15 gm PO BID [facility] Last Admin: 06/10/17 09:13 Dose: 15 gm Lidocaine HCl (Xylocaine 2% Jelly) 10 ml MUCMEM ONETIME ONE Stop: 06/02/17 20:19 Last Admin: 06/02/17 20:37 Dose: 10 ml Lidocaine HCl (Xylocaine 2% Jelly) 10 ml MUCMEM ONETIME ONE Stop: 06/10/17 00:48 Last Admin: 06/10/17 01:56 Dose: 10 ml Lidocaine/Epinephrine (Xylocaine 1% With Epinephrine 1:100,000) Confirm Administered Dose 50 ml .ROUTE .STK-MED ONE Stop: 06/03/17 12:26 Last Admin: 06/03/17 12:24 Dose: 5 ml Linezolid (Zyvox) 200 mg IRR .STK-MED ONE Stop: 06/03/17 12:28 Last Admin: 06/03/17 12:27 Dose: 200 mg Lisinopril (Prinivil) 10 mg PO DAILY [facility] Meropenem (Merrem) Confirm Administered Dose 500 mg .ROUTE .STK-MED ONE Stop: 06/03/17 10:05 Last Admin: 06/03/17 12:27 Dose: 500 mg Pantoprazole Sodium (Protonix Iv) 40 mg IV Q24H [facility] Last Admin: 06/04/17 15:12 Dose: 40 mg Propofol (Diprivan 20 Ml) Confirm Administered Dose 200 mg .ROUTE .STK-MED ONE Stop: 06/03/17 12:08 Sodium Chloride (Saline Flush) 10 ml FLUSH ASDIRECTED PRN PRN Reason: Keep Vein Open Spironolactone (Aldactone) 25 mg PO BIDDIURETIC [facility] Last Admin: 06/12/17 08:08 Dose: 25 mg Tramadol HCl (Ultram) 0 mg PO Q4H PRN PRN Reason: PAIN Vancomycin HCl (Vancomycin) 1 gm IV .PHARMACY TO DOSE [facility] Stop: 06/10/17 08:00 Vancomycin HCl (Vancomycin) Confirm Administered Dose 2,000 mg .ROUTE .STK-MED ONE Stop: 06/10/17 02:29 Last Admin: 06/10/17 02:47 Dose: Not Given - Exam Quality Assessment: Supplemental Oxygen, Urine Catheter, DVT Prophylaxis General: Alert, Oriented, Cooperative, No Acute Distress Lungs: Clear to Auscultation, Normal Respiratory Effort Cardiovascular: Regular Rate, Regular Rhythm, No Murmurs GI/Abdominal Exam: Normal Bowel Sounds, Soft, Non-Tender, No Organomegaly Extremities: Non-Tender, Pedal Edema Skin: Warm, Dry - Problem List Review Problem List Initiated/Reviewed/Updated: Yes - My Orders Last 24 Hours: My Active Orders 06/12/17 09:21 Spironolactone [Aldactone] 50 mg PO BIDDIURETIC 06/12/17 09:30 Clindamycin Phosphate [Cleocin] 600 mg Sodium Chloride 0.9% [Normal Saline] 50 ml IV Q8H 06/12/17 18:00 Bumetanide [Bumex] 2 mg IVPUSH Q12H 06/13/17 05:00 CBC WITH AUTO DIFF [HEME] Timed COMPREHENSIVE METABOLIC PN,CMP [CHEM] Timed - Plan Plan:: ASSESSMENT AND PLAN Infected [place] shunt with septic shock - status post removal 06/03. No recurrent temperature elevations over the past 24 hours, white blood cell count remains modestly elevated. Paracentesis performed this morning by Dr. Kramer in 3 L were removed -Continue current antibiotic therapy with continue meropenem, discontinue vancomycin and Azactam -Clindamycin 600 mg IV every 8 hours -Blood and urine cultures pending -local wound care Cirrhosis - complicated by ascites, Pancytopenia, coagulopathy. -Repeat paracentesis today, he feels improved -Lactulose 15 g twice daily -Spironolactone 50 mg by mouth 2 times a day -Continue diuretics -Repeat labs in the morning Hypoxic respiratory compromise-no evidence of pulmonary embolism or pulmonary infection. There also was no evidence of significant pulmonary edema. Likely secondary to large volume ascites compromising respiratory excursion -Continue supplemental oxygen as needed -BiPAP as needed -Paracentesis today per Dr. Kramer Scrotal and peripheral edema-diuresis poor over the past 24 hours on current diuretic therapy -Saline lock IV -2 g sodium diet -Bumex 2 mg every 12 hours Acute blood loss anemia - hemoglobin stable. No strong evidence for bleeding. -Hemoglobin daily Acute kidney injury - kidney function stable -Follow-up labs daily
[2017-06-12] MEDS ORDERED: Spironolactone 25 MG Tab PO ONE (09:45)
[2017-06-12] MEDS: Bumetanide 2.5 MG/10 ML MDV IVPUSH SCH (17:04)
[2017-06-13] MEDS: Meropenem 1 GM in Sodium Chloride 0.9% 100 ML IV SCH ×2 (01:14→11:03)
[2017-06-13] MEDS: oxyCODONE 5 MG Tab PO PRN ×2 (03:56→19:50)
[2017-06-13] MEDS: Bumetanide 2.5 MG/10 ML MDV IVPUSH SCH ×2 (06:21→17:38)
[2017-06-13] MEDS: Pantoprazole 40 MG Tab.CR PO SCH (07:21)
[2017-06-13] MEDS: Spironolactone 25 MG Tab PO SCH ×2 (07:21→14:23)
[2017-06-13] MEDS: Lactulose Soln 10 GM/15 ML 15 ML UD Cup PO SCH ×2 (08:50→20:00)
[2017-06-13] MEDS: Mineral Oil/Petrolatum,Hydrophilic Ointment 100 GM Jar TOP SCH ×2 (08:52→20:02)
[2017-06-13] MEDS: Magnesium Oxide 400 MG Tab PO SCH ×2 (08:53→20:02)
--- NOTE | 2017-06-13 09:22 | OR ---
DATE OF PROCEDURE: 06/07/2017 PREOPERATIVE DIAGNOSIS: Tense ascites. POSTOPERATIVE DIAGNOSIS: Tense ascites. PROCEDURE: Ultrasound-guided paracentesis (18849). ANESTHESIA: Local. INDICATION FOR PROCEDURE: This is a 52-year-old with advanced cirrhosis, presenting with some increasing tightness and his ascitic fluid. The plan is to proceed with an ultrasound- guided paracentesis. Potential risks including bleeding, infection, injury to underlying viscera were all reviewed, and the patient wishes to proceed. DETAILS OF THE PROCEDURE: The patient was taken to the operating room and placed in a supine position on the hospital bed. The computer engineering technician marked the area on the left and the right lower quadrant, fairly laterally, and that area was prepped and draped, anesthetized with 1% lidocaine, and the paracentesis catheter placed. A 4 L of bile-stained fluid (patient has elevated bilirubin, so this is expected) was removed. The cultures were sent on this as well and upon completion of 4 L evacuation, the catheter was withdrawn, a pursestring stitch of 2-0 Prolene stitch was tied and a dressing applied. The patient tolerated the procedure well. Bimal Kramer MD /[id number]
--- NOTE | 2017-06-13 10:40 | PN ---
DATE OF SERVICE: 06/11/2017 The patient has been clinically stable. We did a paracentesis this morning at a premarked location in the right midabdomen by ultrasound. This put out around 100 mL of fluid. This was sent for culture, Gram stains, and that was negative, but it would appear that there is probably some gelatinous material in that region rather than pure fluid. We will have ultrasound marking a new spot probably on the left side, and we will repeat the paracentesis either tonight or early tomorrow. At the end of the paracentesis day, we injected 600 mg of Zyvox in the peritoneal cavity, and we will do that again tomorrow as well. Otherwise, his liver function is slightly a little bit better. His bilirubin is creeping down somewhat, but fairly slowly. Otherwise, management will continue per Dr. Jerry. Bimal Kramer MD /[id number]
--- NOTE | 2017-06-13 10:43 | PN ---
DATE OF SERVICE: 06/12/2017 The patient has been clinically stable. He did have a paracentesis today removing 3 L of peritoneal fluid. The Gram stain on this did show some gram-positive cocci today. Once again, 600 mg of Zyvox was injected into the peritoneal cavity at the conclusion of the procedure. Otherwise, management will continue per Dr. Jerry. Of note, leaking from the abdominal wall appears to be waning at this point. Bimal Kramer MD /[id number]
--- NOTE | 2017-06-13 13:56 | PCM.PN ---
- General Info Date of Service: 06/13/17 Subjective Update: Mr. Beach is done well since yesterday, denies significant shortness of breath and has noted improvement in peripheral edema as well as abdominal distention. Denies significant pain, vital signs have been stable and he has remained afebrile. - Patient Data Vitals - Most Recent: Last Vital Signs Temp 98.3 F 06/13/17 11:10 Pulse 82 06/13/17 11:10 Resp 16 06/13/17 11:10 BP 97/51 L 06/13/17 11:10 Pulse Ox 90 L 06/13/17 11:10 Weight - Most Recent: 270 lb I&O - Last 24 Hours: Intake & Output 06/12/17 06/13/17 06/13/17 22:59 06:59 14:59 Intake Total 514 1330 900 Output Total 225 750 Balance 289 1330 150 Lab Results Last 24 Hours: Laboratory Results - last 24 hr 06/13/17 06/13/17 Range/Units 05:00 06:16 WBC 10.8 (4.5-11.0) K/uL RBC 2.61 L (4.30-5.90) M/uL Hgb 8.2 L (12.0-15.0) g/dL Hct 24.6 L (40.0-54.0) % MCV 94 (80-98) fL MCH 31 (27-31) pg MCHC 33 (32-36) % Plt Count 51 L (150-400) K/uL Neut % (Auto) 70 H (36-66) % Lymph % (Auto) 17 L (24-44) % [place] % (Auto) 12 H (2-6) % Eos % (Auto) 2 (2-4) % Baso % (Auto) 1 (0-1) % Sodium 133 L (140-148) mmol/L Potassium 3.7 (3.6-5.2) mmol/L Chloride 103 (100-108) mmol/L Carbon Dioxide 24 (21-32) mmol/L Anion Gap 9.7 (5.0-14.0) mmol/L BUN 8 (7-18) mg/dL Creatinine 0.6 L (0.8-1.3) mg/dL Est Cr Clr Drug Dosing 147.38 mL/min Estimated GFR (MDRD) > 60 (>60) Glucose 86 (74-106) mg/dL Calcium 7.3 L (8.5-10.1) mg/dL Total Bilirubin 5.9 H (0.2-1.0) mg/dL AST 58 H (15-37) U/L ALT 24 (12-78) U/L Alkaline Phosphatase 106 (46-116) U/L Total Protein 4.9 L (6.4-8.2) g/dL Albumin 2.2 L (3.4-5.0) g/dL Globulin 2.7 (2.3-3.5) g/dL Albumin/Globulin Ratio 0.8 L (1.2-2.2) Victor Manuel Results Last 24 Hours: Microbiology 06/11/17 06:46 Gram Stain - Final Peritoneal Fluid Body Fluid Culture - Preliminary NO GROWTH AFTER 2 DAYS 06/12/17 06:50 Gram Stain - Final Peritoneal Fluid Body Fluid Culture - Preliminary NO GROWTH AFTER 1 DAY 06/10/17 01:00 Aerobic Blood Culture - Preliminary Blood - Venous - Lab Draw NO GROWTH AFTER 3 DAYS Anaerobic Blood Culture - Preliminary NO GROWTH AFTER 3 DAYS 06/10/17 01:10 Aerobic Blood Culture - Preliminary Blood - Venous NO GROWTH AFTER 3 DAYS Anaerobic Blood Culture - Preliminary NO GROWTH AFTER 3 DAYS Med Orders - Current: Current Medications Bumetanide (Bumex) 2 mg IVPUSH Q12H [facility] Last Admin: 06/13/17 06:21 Dose: 2 mg Meropenem 1 gm/ Sodium (Chloride) 100 mls @ 200 mls/hr IV Q8H [facility] Last Admin: 06/13/17 11:03 Dose: 200 mls/hr Clindamycin Phosphate 600 mg/ (Sodium Chloride) 54 mls @ 100 mls/hr IV Q8H [facility] Last Admin: 06/13/17 12:06 Dose: 100 mls/hr Lactulose (Chronulac) 15 gm PO BID [facility] Last Admin: 06/13/17 08:50 Dose: 15 gm Magnesium Oxide (Magnesium Oxide) 400 mg PO BID [facility] Last Admin: 06/13/17 08:53 Dose: 400 mg Melatonin (Melatonin) 6 mg PO BEDTIME PRN PRN Reason: Insomnia Mineral Oil/White Petrolatum (Hydrophor Oint) 0 gm TOP BID [facility] Last Admin: 06/13/17 08:52 Dose: 1 applic Oxycodone HCl (Oxycodone) 5 mg PO Q4H PRN PRN Reason: PAIN Last Admin: 06/13/17 03:56 Dose: 5 mg Pantoprazole Sodium (Protonix) 40 mg PO ACBREAKFAST [facility]ID Last Admin: 06/13/17 07:21 Dose: 40 mg Spironolactone (Aldactone) 50 mg PO BIDDIURETIC [facility] Last Admin: 06/13/17 07:21 Dose: 50 mg Discontinued Medications Albuterol/Ipratropium (Duoneb 3.0-0.5 Mg/3 Ml) 3 ml NEB ONETIME STA Stop: 06/09/17 21:54 Last Admin: 06/09/17 22:00 Dose: 3 ml Bupivacaine HCl (Marcaine 0.5%) Confirm Administered Dose 50 ml .ROUTE .STK-MED ONE Stop: 06/03/17 12:26 Last Admin: 06/03/17 12:24 Dose: 5 ml Furosemide (Lasix) 40 mg PO BIDDIURETIC [facility] Last Admin: 06/09/17 07:42 Dose: 40 mg Furosemide (Lasix) 40 mg IVPUSH Q12H [facility] Last Admin: 06/11/17 07:34 Dose: 40 mg Furosemide 40 mg/ Furosemide (20 mg) 60 mg IV Q12H [facility] Last Admin: 06/12/17 08:07 Dose: 60 mg Hydrocortisone Sodium Succinate (Solu-Cortef) 100 mg IVPUSH ONETIME ONE Stop: 06/03/17 04:03 Last Admin: 06/03/17 04:48 Dose: 100 mg Dextrose/Lactated Ringer's (Dextrose 5%-Lactated Ringers) 1,000 mls @ 100 mls/ hr IV ASDIRECTED [facility] Last Admin: 06/02/17 15:03 Dose: 100 mls/hr Linezolid 600 mg/ Premix 300 mls @ 300 mls/hr IV Q12H [facility] Last Admin: 06/05/17 03:32 Dose: 300 mls/hr Lactated Ringer's (Ringers, Lactated) 500 mls @ 500 mls/hr IV BOLUS ONE Stop: 06/02/17 16:58 Last Admin: 06/02/17 16:10 Dose: 500 mls/hr Dextrose/Lactated Ringer's (Dextrose 5%-Lactated Ringers) 1,000 mls @ 150 mls/ hr IV ASDIRECTED [facility] Last Admin: 06/03/17 05:08 Dose: 150 mls/hr Sodium Chloride (Normal Saline) 1,000 mls @ 999 mls/hr IV .BOLUS ONE Stop: 06/02/17 21:06 Last Admin: 06/02/17 20:10 Dose: 999 mls/hr Sodium Chloride (Normal Saline) 1,000 mls @ 999 mls/hr IV .BOLUS ONE Stop: 06/02/17 22:08 Last Admin: 06/02/17 21:14 Dose: 999 mls/hr Lactated Ringer's (Ringers, Lactated) 1,000 mls @ 500 mls/hr IV ASDIRECTED [facility] Stop: 06/03/17 02:30 Last Admin: 06/03/17 00:43 Dose: 500 mls/hr Sodium Chloride (Normal Saline) 1,000 mls @ 1,000 drops/min IV .BOLUS ONE Stop: 06/03/17 02:54 Last Admin: 06/03/17 04:31 Dose: 1,000 drops/min Norepinephrine Bitartrate 4 mg (/ Dextrose/Water) 250 mls @ 7.5 mls/hr IV TITRATE DAVID; 2 MCG/MIN PRN Reason: Protocol Last Titration: 06/04/17 08:19 Dose: 0 mcg/min, 0 mls/hr Sodium Chloride (Normal Saline) 500 mls @ 999 mls/hr IV BOLUS DAVID Stop: 06/03/17 04:46 Last Admin: 06/03/17 04:20 Dose: 999 mls/hr Dextrose/Water (Dextrose 5% In Water) Confirm Administered Dose 250 mls @ as directed .ROUTE .STK-MED ONE Stop: 06/03/17 04:11 Last Admin: 06/03/17 04:29 Dose: Not Given Meropenem 500 mg/ Sodium (Chloride) 100 mls @ 200 mls/hr IV Q8H [facility] Last Admin: 06/03/17 05:42 Dose: 200 mls/hr Sodium Chloride (Normal Saline) 1,000 mls @ 999 mls/hr IV .BOLUS ONE Stop: 06/03/17 07:36 Last Admin: 06/03/17 06:44 Dose: 999 mls/hr Sodium Chloride (Normal Saline) 1,000 mls @ 500 mls/hr IV ASDIRECTED [facility] Last Admin: 06/03/17 07:00 Dose: 500 mls/hr Meropenem 500 mg/ Sodium (Chloride) 50 mls @ 100 mls/hr IV Q8HR [facility] Last Admin: 06/05/17 05:13 Dose: 100 mls/hr Magnesium Sulfate 2 gm/ Premix 50 mls @ 25 mls/hr IV Q6HR [facility] Stop: 06/06/17 05:59 Last Admin: 06/06/17 04:22 Dose: 25 mls/hr Linezolid (Zyvox) Confirm Administered Dose 100 mls @ as directed .ROUTE .STK- MED ONE Stop: 06/03/17 10:05 Sodium Chloride (Normal Saline) 1,000 mls @ 300 mls/hr IV ASDIRECTED [facility] Last Admin: 06/03/17 14:07 Dose: 300 mls/hr Dextrose/Lactated Ringer's (Dextrose 5%-Lactated Ringers) 1,000 mls @ 100 mls/ hr IV ASDIRECTED [facility] Last Admin: 06/03/17 14:07 Dose: 100 mls/hr Albumin Human (Albumin 25%) 25 gm in 100 mls @ 25 mls/hr IV Q24H [facility] Stop: 06/06/17 17:59 Last Admin: 06/06/17 15:19 Dose: 25 mls/hr Albumin Human (Albumin 25%) 25 gm in 100 mls @ 25 mls/hr IV Q24H [facility] Stop: 06/06/17 21:59 Last Admin: 06/06/17 19:25 Dose: 25 mls/hr Sodium Chloride (Normal Saline) 1,000 mls @ 25 mls/hr IV ASDIRECTED [facility] Dextrose/Lactated Ringer's (Dextrose 5%-Lactated Ringers) 1,000 mls @ 100 mls/ hr IV ASDIRECTED [facility] Last Admin: 06/04/17 01:09 Dose: 100 mls/hr Potassium Acetate 20 meq/ (Dextrose/Sodium Chloride) 1,010 mls @ 150 mls/hr IV .Q6H44M [facility] Last Admin: 06/05/17 07:20 Dose: 150 mls/hr Phytonadione 10 mg/ Sodium (Chloride) 51 mls @ 51 mls/hr IV ONETIME ONE Stop: 06/04/17 09:59 Last Admin: 06/04/17 09:04 Dose: 51 mls/hr Clindamycin Phosphate 900 mg/ (Sodium Chloride) 106 mls @ 212 mls/hr IV Q8H [facility] Last Admin: 06/09/17 16:45 Dose: 212 mls/hr Ciprofloxacin/Dextrose 400 mg/ (Premix) 200 mls @ 200 mls/hr IV Q12H [facility] Last Admin: 06/09/17 21:43 Dose: 200 mls/hr Potassium Phosphate 30 mmole/Lidocaine HCl 3 ml/ Sodium Chloride 263 mls @ 66 mls/hr IV Q4H [facility] Stop: 06/05/17 17:59 Last Admin: 06/05/17 13:36 Dose: 66 mls/hr Potassium Acetate 20 meq/ (Dextrose/Sodium Chloride) 1,010 mls @ 100 mls/hr IV ASDIRECTED [facility] Last Admin: 06/08/17 04:45 Dose: 100 mls/hr Albumin Human (Albumin 25%) 25 gm in 100 mls @ 25 mls/hr IV Q24H [facility] Stop: 06/10/17 17:59 Last Admin: 06/10/17 13:32 Dose: 25 mls/hr Albumin Human (Albumin 25%) 25 gm in 100 mls @ 25 mls/hr IV Q24H [facility] Stop: 06/10/17 21:59 Last Admin: 06/10/17 18:02 Dose: 25 mls/hr Sodium Chloride (Normal Saline) 80 mls @ 3 mls/sec IV ASDIRECTED [facility] Last Admin: 06/09/17 23:53 Dose: 3 mls/sec Aztreonam 1 gm/ Sodium (Chloride) 100 mls @ 200 mls/hr IV Q8HR [facility] Last Admin: 06/10/17 05:51 Dose: 200 mls/hr Meropenem 1 gm/ Sodium (Chloride) 100 mls @ 200 mls/hr IV Q8H [facility] Last Admin: 06/10/17 01:56 Dose: 200 mls/hr Vancomycin HCl 1.75 gm/ Sodium (Chloride) 500 mls @ 250 mls/hr IV Q12H [facility] Last Admin: 06/10/17 02:46 Dose: 250 mls/hr Aztreonam/Dextrose 1 gm/ (Premix) 50 mls @ 100 mls/hr IV Q8HR [facility] Last Admin: 06/12/17 05:04 Dose: 100 mls/hr Vancomycin HCl 1.8 gm/ Sodium (Chloride) 250 mls @ 167 mls/hr IV Q12H [facility] Last Admin: 06/11/17 02:42 Dose: 167 mls/hr Magnesium Sulfate 2 gm/ Premix 50 mls @ 25 mls/hr IV ONETIME ONE Stop: 06/10/17 11:59 Last Admin: 06/10/17 09:15 Dose: 25 mls/hr Linezolid 600 mg/ Premix 300 mls @ 300 mls/hr IV ONETIME ONE Stop: 06/11/17 06:43 Last Admin: 06/11/17 05:56 Dose: 300 mls/hr Linezolid (Zyvox) Confirm Administered Dose 300 mls @ as directed .ROUTE .STK- MED ONE Stop: 06/11/17 05:46 Last Admin: 06/11/17 05:57 Dose: Not Given Vancomycin HCl 1.8 gm/ Sodium (Chloride) 250 mls @ 167 mls/hr IV Q12H [facility] Last Admin: 06/12/17 03:04 Dose: 167 mls/hr Linezolid 600 mg/ Premix 300 mls @ 300 mls/hr IV ONETIME ONE Stop: 06/12/17 06:59 Last Admin: 06/12/17 06:16 Dose: 300 mls/hr Iopamidol (Isovue-370 (76%)) 100 ml IV . DIRECTED [facility] Last Admin: 06/09/17 23:54 Dose: 100 ml Lactulose (Chronulac) 10 gm PO ONETIME ONE Stop: 06/07/17 15:01 Last Admin: 06/07/17 14:54 Dose: 10 gm Lactulose (Chronulac) 15 gm PO BID [facility] Last Admin: 06/10/17 09:13 Dose: 15 gm Lidocaine HCl (Xylocaine 2% Jelly) 10 ml MUCMEM ONETIME ONE Stop: 06/02/17 20:19 Last Admin: 06/02/17 20:37 Dose: 10 ml Lidocaine HCl (Xylocaine 2% Jelly) 10 ml MUCMEM ONETIME ONE Stop: 06/10/17 00:48 Last Admin: 06/10/17 01:56 Dose: 10 ml Lidocaine/Epinephrine (Xylocaine 1% With Epinephrine 1:100,000) Confirm Administered Dose 50 ml .ROUTE .STK-MED ONE Stop: 06/03/17 12:26 Last Admin: 06/03/17 12:24 Dose: 5 ml Linezolid (Zyvox) 200 mg IRR .STK-MED ONE Stop: 06/03/17 12:28 Last Admin: 06/03/17 12:27 Dose: 200 mg Lisinopril (Prinivil) 10 mg PO DAILY [facility] Meropenem (Merrem) Confirm Administered Dose 500 mg .ROUTE .STK-MED ONE Stop: 06/03/17 10:05 Last Admin: 06/03/17 12:27 Dose: 500 mg Pantoprazole Sodium (Protonix Iv) 40 mg IV Q24H [facility] Last Admin: 06/04/17 15:12 Dose: 40 mg Propofol (Diprivan 20 Ml) Confirm Administered Dose 200 mg .ROUTE .STK-MED ONE Stop: 06/03/17 12:08 Sodium Chloride (Saline Flush) 10 ml FLUSH ASDIRECTED PRN PRN Reason: Keep Vein Open Spironolactone (Aldactone) 25 mg PO BIDDIURETIC [facility] Last Admin: 06/12/17 08:08 Dose: 25 mg Spironolactone (Aldactone) 25 mg PO ONETIME ONE Stop: 06/12/17 09:46 Last Admin: 06/12/17 09:50 Dose: 25 mg Tramadol HCl (Ultram) 0 mg PO Q4H PRN PRN Reason: PAIN Vancomycin HCl (Vancomycin) 1 gm IV .PHARMACY TO DOSE [facility] Stop: 06/10/17 08:00 Vancomycin HCl (Vancomycin) Confirm Administered Dose 2,000 mg .ROUTE .STK-MED ONE Stop: 06/10/17 02:29 Last Admin: 06/10/17 02:47 Dose: Not Given - Exam Quality Assessment: DVT Prophylaxis General: Alert, Oriented, Cooperative, No Acute Distress Lungs: Clear to Auscultation, Normal Respiratory Effort Cardiovascular: Regular Rate, Regular Rhythm, No Murmurs. No: Bradycardia, Tachycardia, Murmurs GI/Abdominal Exam: Normal Bowel Sounds, Soft, Non-Tender, Distended Extremities: Non-Tender, Pedal Edema Skin: Warm, Dry, Intact - Problem List Review Problem List Initiated/Reviewed/Updated: Yes - My Orders Last 24 Hours: My Active Orders 06/12/17 14:00 Spironolactone [Aldactone] 50 mg PO BIDDIURETIC 06/12/17 18:00 Bumetanide [Bumex] 2 mg IVPUSH Q12H 06/13/17 09:57 Intake and Output Strict [RC] ASDIRECTED 06/13/17 13:47 Melatonin 6 mg PO BEDTIME PRN 06/14/17 05:00 CBC WITH AUTO DIFF [HEME] Timed COMPREHENSIVE METABOLIC PN,CMP [CHEM] Timed - Plan Plan:: ASSESSMENT AND PLAN 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 No recurrent temperature elevations over the past 24 hours, White blood cell count has normalized, culture from paracentesis negative thus far -Continue current antibiotic therapy with Zyvox -local wound care Cirrhosis - complicated by ascites, Pancytopenia, coagulopathy. -Lactulose 15 g twice daily -Spironolactone 50 mg by mouth 2 times a day -Continue diuretics; Bumex 2 mg IV every 12 hours -Repeat labs in the morning Hypoxic respiratory compromise- resolved following paracentesis -Continue supplemental oxygen as needed Scrotal and peripheral edema-diuresis poor over the past 24 hours on current diuretic therapy -Saline lock IV -2 g sodium diet -Bumex 2 mg every 12 hours Acute blood loss anemia - hemoglobin stable. No strong evidence for bleeding. -Hemoglobin daily Acute kidney injury - kidney function stable -Follow-up labs daily
[2017-06-13] MEDS: Ciprofloxacin in D5W 400 MG in Premix Bag 1 BAG IV SCH ×2 (15:23)
[2017-06-13] MEDS: Tamsulosin 0.4 MG Cap.ER PO SCH (20:02)
[2017-06-14] MEDS: oxyCODONE 5 MG Tab PO PRN ×5 (00:26→23:27)
[2017-06-14] MEDS: Melatonin 3 MG Tab PO PRN (00:27)
[2017-06-14] MEDS: Ciprofloxacin in D5W 400 MG in Premix Bag 1 BAG IV SCH ×4 (02:38→15:54)
[2017-06-14] MEDS: Bumetanide 2.5 MG/10 ML MDV IVPUSH SCH (06:42)
--- NOTE | 2017-06-14 08:33 | PN ---
DATE OF SERVICE: 06/14/2017 SUBJECTIVE: Yvon is reporting that he is feeling "okay" and has no other questions or concerns. He states his pain is controlled. OBJECTIVE: GENERAL: Yvon Beach is a 52-year-old male. He is resting comfortably in bed. VITAL SIGNS: TPR is 98.6, 65, 18, and blood pressure 96/52. HEENT: Negative. NECK: Supple. HEART: Regular rate and rhythm. LUNGS: Clear. ABDOMEN: Distended. There are sutures at his 3 paracenteses sites and the 1 on the right lateral is draining a clear drainage; otherwise, the rest are dry. EXTREMITIES: Revealed peripheral edema. ASSESSMENT: 1. Sepsis. 2. Limited laparotomy with removal of peritoneovenous shunt and closure of facial dehiscence for exposed peritoneovenous shunt, facial dehiscence at the site of fascia, closure of abdominal entrance with peritoneovenous shunt, date of surgery 06/03/2017. 3. Paracentesis, 06/07/2017, 4 L removed. 4. Paracentesis, 06/12/2017, with 3 L removed. PLAN: 1. Remove sutures in all paracentesis sites x3. 2. When discharged to follow up on 06/23/2017 with Bimal Kramer M.D. at 11 a.m. 3. We will evaluate p.r.n. or in a.m. Юлия Clayton PA-C /[id number]
[2017-06-14] MEDS: Lactulose Soln 10 GM/15 ML 15 ML UD Cup PO SCH ×2 (10:13→21:51)
[2017-06-14] MEDS: Pantoprazole 40 MG Tab.CR PO SCH (10:14)
[2017-06-14] MEDS: Spironolactone 25 MG Tab PO SCH ×2 (10:14→13:45)
[2017-06-14] MEDS: Mineral Oil/Petrolatum,Hydrophilic Ointment 100 GM Jar TOP SCH ×2 (10:14→21:53)
[2017-06-14] MEDS: Magnesium Oxide 400 MG Tab PO SCH ×2 (10:15→21:52)
--- NOTE | 2017-06-14 11:18 | PN ---
DATE OF SERVICE: 06/13/2017 The patient has been afebrile with stable vital signs. Liver function appears to be gradually improving with bilirubin down to 5.9 today. The open incision is clean. We will have him continue dressing changes on that. Otherwise, he has stopped leaking. The Gram stain on the peritoneal fluid yesterday continued to show some gram-positive cocci. Whether or not he might be able to be discharged home on oral antibiotics at this point, given what appears to be a fairly benign-appearing clinic course, will be up to Dr. Jerry. Bimal Kramer MD /[id number]
--- NOTE | 2017-06-14 11:48 | OR ---
DATE OF PROCEDURE: 06/12/2017 PREOPERATIVE DIAGNOSIS: Tense ascites. POSTOPERATIVE DIAGNOSIS: Tense ascites. OPERATIVE PROCEDURE: Ultrasound-guided paracentesis ([id number]). ANESTHESIA: Local. INDICATION FOR PROCEDURE: Please see previous notes. Potential risks of the procedure were once again reviewed with the patient including bleeding, infection, injury to underlying viscera, and he wishes to proceed. DETAILS OF PROCEDURE: In the hospital bed, the area that had been identified in the left midabdomen was then prepped and draped and anesthetized with 1% lidocaine. The paracentesis catheter was then placed and 3 L of bile-tinged fluid was removed. The patient's bilirubin was running in the 7 range, so the bile-tinge stay would be expected. The fluid otherwise was not grossly infected. 3 L was removed and, at that point, a pursestring stitch of 2-0 Prolene was placed around the catheter site and pulled up as the catheter was withdrawn. Prior to removal of the catheter, 600 mg of Zyvox solution was injected as well and some of the fluid had been sent for culture and Gram stain. Upon removal of the catheter, stitch was tied and procedure concluded. There were no evident complications. Bimal Kramer MD /[id number]
--- NOTE | 2017-06-14 14:16 | PCM.PN ---
- General Info Date of Service: 06/14/17 Functional Status: Reports: Pain Controlled, Ambulating - Review of Systems General: Reports: Weakness Gastrointestinal: Reports: Abdominal Pain Systems Review Comment:: No acute events overnight. Maintenance difficulty today is nearly constant draining from the previous paracentesis site this has been worse after the sutures were removed. He complains of only mild abdominal pain which has been well-controlled. He has not had any fevers. Lower extremity edema seems a little bit better today but still remains significant in quantity. He feels tired but otherwise feels okay. - Patient Data Vitals - Most Recent: Last Vital Signs Temp 36.8 C 06/14/17 10:50 Pulse 92 06/14/17 10:50 Resp 18 06/14/17 10:50 BP 100/49 L 06/14/17 10:50 Pulse Ox 90 L 06/14/17 10:50 Weight - Most Recent: 125.418 kg I&O - Last 24 Hours: Intake & Output 06/13/17 06/14/17 06/14/17 22:59 06:59 14:59 Intake Total 2130 750 294 Output Total 100 250 350 Balance 2030 500 -56 Lab Results Last 24 Hours: Laboratory Results - last 24 hr 06/14/17 06/14/17 Range/Units 06:01 06:01 WBC 9.2 (4.5-11.0) K/uL RBC 2.56 L (4.30-5.90) M/uL Hgb 8.2 L (12.0-15.0) g/dL Hct 24.3 L (40.0-54.0) % MCV 95 (80-98) fL MCH 32 H (27-31) pg MCHC 34 (32-36) % Plt Count 65 L (150-400) K/uL Neut % (Auto) 75 H (36-66) % Lymph % (Auto) 13 L (24-44) % [place] % (Auto) 10 H (2-6) % Eos % (Auto) 2 (2-4) % Baso % (Auto) 0 (0-1) % Sodium 131 L (140-148) mmol/L Potassium 3.8 (3.6-5.2) mmol/L Chloride 99 L (100-108) mmol/L Carbon Dioxide 24 (21-32) mmol/L Anion Gap 11.8 (5.0-14.0) mmol/L BUN 10 (7-18) mg/dL Creatinine 0.7 L (0.8-1.3) mg/dL Est Cr Clr Drug Dosing 126.32 mL/min Estimated GFR (MDRD) > 60 (>60) Glucose 94 (74-106) mg/dL Calcium 7.1 L (8.5-10.1) mg/dL Total Bilirubin 6.2 H (0.2-1.0) mg/dL AST 53 H (15-37) U/L ALT 25 (12-78) U/L Alkaline Phosphatase 109 (46-116) U/L Total Protein 5.1 L (6.4-8.2) g/dL Albumin 2.1 L (3.4-5.0) g/dL Globulin 3.0 (2.3-3.5) g/dL Albumin/Globulin Ratio 0.7 L (1.2-2.2) Victor Manuel Results Last 24 Hours: Microbiology 06/12/17 06:50 Gram Stain - Final Peritoneal Fluid Body Fluid Culture - Preliminary NO GROWTH AFTER 2 DAYS 06/11/17 06:46 Gram Stain - Final Peritoneal Fluid Body Fluid Culture - Final NO GROWTH AFTER 3 DAYS 06/10/17 01:00 Aerobic Blood Culture - Preliminary Blood - Venous - Lab Draw NO GROWTH AFTER 4 DAYS Anaerobic Blood Culture - Preliminary NO GROWTH AFTER 4 DAYS 06/10/17 01:10 Aerobic Blood Culture - Preliminary Blood - Venous NO GROWTH AFTER 4 DAYS Anaerobic Blood Culture - Preliminary NO GROWTH AFTER 4 DAYS Med Orders - Current: Current Medications Bumetanide (Bumex) 1 mg IVPUSH BIDDIURETIC [facility] Clindamycin Phosphate 600 mg/ (Sodium Chloride) 54 mls @ 100 mls/hr IV Q8H [facility] Last Admin: 06/14/17 13:45 Dose: 100 mls/hr Ciprofloxacin/Dextrose 400 mg/ (Premix) 200 mls @ 200 mls/hr IV Q12H [facility] Last Admin: 06/14/17 02:38 Dose: 200 mls/hr Lactulose (Chronulac) 15 gm PO BID [facility] Last Admin: 06/14/17 10:13 Dose: 15 gm Magnesium Oxide (Magnesium Oxide) 400 mg PO BID [facility] Last Admin: 06/14/17 10:15 Dose: 400 mg Melatonin (Melatonin) 6 mg PO BEDTIME PRN PRN Reason: Insomnia Last Admin: 06/14/17 00:27 Dose: 6 mg Mineral Oil/White Petrolatum (Hydrophor Oint) 0 gm TOP BID [facility] Last Admin: 06/14/17 10:14 Dose: 1 applic Oxycodone HCl (Oxycodone) 5 mg PO Q4H PRN PRN Reason: PAIN Last Admin: 06/14/17 13:44 Dose: 5 mg Pantoprazole Sodium (Protonix) 40 mg PO ACBREAKFAST [facility] Last Admin: 06/14/17 10:14 Dose: 40 mg Spironolactone (Aldactone) 50 mg PO BIDDIURETIC [facility] Last Admin: 06/14/17 13:45 Dose: 50 mg Tamsulosin HCl (Flomax) 0.4 mg PO BEDTIME [facility] Last Admin: 06/13/17 20:02 Dose: 0.4 mg Discontinued Medications Albuterol/Ipratropium (Duoneb 3.0-0.5 Mg/3 Ml) 3 ml NEB ONETIME STA Stop: 06/09/17 21:54 Last Admin: 06/09/17 22:00 Dose: 3 ml Bumetanide (Bumex) 2 mg IVPUSH Q12H [facility] Last Admin: 06/14/17 06:42 Dose: Not Given Bupivacaine HCl (Marcaine 0.5%) Confirm Administered Dose 50 ml .ROUTE .STK-MED ONE Stop: 06/03/17 12:26 Last Admin: 06/03/17 12:24 Dose: 5 ml Furosemide (Lasix) 40 mg PO BIDDIURETIC [facility] Last Admin: 06/09/17 07:42 Dose: 40 mg Furosemide (Lasix) 40 mg IVPUSH Q12H [facility] Last Admin: 06/11/17 07:34 Dose: 40 mg Furosemide 40 mg/ Furosemide (20 mg) 60 mg IV Q12H [facility] Last Admin: 06/12/17 08:07 Dose: 60 mg Hydrocortisone Sodium Succinate (Solu-Cortef) 100 mg IVPUSH ONETIME ONE Stop: 06/03/17 04:03 Last Admin: 06/03/17 04:48 Dose: 100 mg Dextrose/Lactated Ringer's (Dextrose 5%-Lactated Ringers) 1,000 mls @ 100 mls/ hr IV ASDIRECTED [facility] Last Admin: 06/02/17 15:03 Dose: 100 mls/hr Linezolid 600 mg/ Premix 300 mls @ 300 mls/hr IV Q12H [facility] Last Admin: 06/05/17 03:32 Dose: 300 mls/hr Lactated Ringer's (Ringers, Lactated) 500 mls @ 500 mls/hr IV BOLUS ONE Stop: 06/02/17 16:58 Last Admin: 06/02/17 16:10 Dose: 500 mls/hr Dextrose/Lactated Ringer's (Dextrose 5%-Lactated Ringers) 1,000 mls @ 150 mls/ hr IV ASDIRECTED [facility] Last Admin: 06/03/17 05:08 Dose: 150 mls/hr Sodium Chloride (Normal Saline) 1,000 mls @ 999 mls/hr IV .BOLUS ONE Stop: 06/02/17 21:06 Last Admin: 06/02/17 20:10 Dose: 999 mls/hr Sodium Chloride (Normal Saline) 1,000 mls @ 999 mls/hr IV .BOLUS ONE Stop: 06/02/17 22:08 Last Admin: 06/02/17 21:14 Dose: 999 mls/hr Lactated Ringer's (Ringers, Lactated) 1,000 mls @ 500 mls/hr IV ASDIRECTED [facility] Stop: 06/03/17 02:30 Last Admin: 06/03/17 00:43 Dose: 500 mls/hr Sodium Chloride (Normal Saline) 1,000 mls @ 1,000 drops/min IV .BOLUS ONE Stop: 06/03/17 02:54 Last Admin: 06/03/17 04:31 Dose: 1,000 drops/min Norepinephrine Bitartrate 4 mg (/ Dextrose/Water) 250 mls @ 7.5 mls/hr IV TITRATE DAVID; 2 MCG/MIN PRN Reason: Protocol Last Titration: 06/04/17 08:19 Dose: 0 mcg/min, 0 mls/hr Sodium Chloride (Normal Saline) 500 mls @ 999 mls/hr IV BOLUS [facility] Stop: 06/03/17 04:46 Last Admin: 06/03/17 04:20 Dose: 999 mls/hr Dextrose/Water (Dextrose 5% In Water) Confirm Administered Dose 250 mls @ as directed .ROUTE .STK-MED ONE Stop: 06/03/17 04:11 Last Admin: 06/03/17 04:29 Dose: Not Given Meropenem 500 mg/ Sodium (Chloride) 100 mls @ 200 mls/hr IV Q8H [facility] Last Admin: 06/03/17 05:42 Dose: 200 mls/hr Sodium Chloride (Normal Saline) 1,000 mls @ 999 mls/hr IV .BOLUS ONE Stop: 06/03/17 07:36 Last Admin: 06/03/17 06:44 Dose: 999 mls/hr Sodium Chloride (Normal Saline) 1,000 mls @ 500 mls/hr IV ASDIRECTED [facility] Last Admin: 06/03/17 07:00 Dose: 500 mls/hr Meropenem 500 mg/ Sodium (Chloride) 50 mls @ 100 mls/hr IV Q8HR [facility] Last Admin: 06/05/17 05:13 Dose: 100 mls/hr Magnesium Sulfate 2 gm/ Premix 50 mls @ 25 mls/hr IV Q6HR [facility] Stop: 06/06/17 05:59 Last Admin: 06/06/17 04:22 Dose: 25 mls/hr Linezolid (Zyvox) Confirm Administered Dose 100 mls @ as directed .ROUTE .STK- MED ONE Stop: 06/03/17 10:05 Sodium Chloride (Normal Saline) 1,000 mls @ 300 mls/hr IV ASDIRECTED [facility] Last Admin: 06/03/17 14:07 Dose: 300 mls/hr Dextrose/Lactated Ringer's (Dextrose 5%-Lactated Ringers) 1,000 mls @ 100 mls/ hr IV ASDIRECTED [facility] Last Admin: 06/03/17 14:07 Dose: 100 mls/hr Albumin Human (Albumin 25%) 25 gm in 100 mls @ 25 mls/hr IV Q24H [facility] Stop: 06/06/17 17:59 Last Admin: 06/06/17 15:19 Dose: 25 mls/hr Albumin Human (Albumin 25%) 25 gm in 100 mls @ 25 mls/hr IV Q24H [facility] Stop: 06/06/17 21:59 Last Admin: 06/06/17 19:25 Dose: 25 mls/hr Sodium Chloride (Normal Saline) 1,000 mls @ 25 mls/hr IV ASDIRECTED [facility] Dextrose/Lactated Ringer's (Dextrose 5%-Lactated Ringers) 1,000 mls @ 100 mls/ hr IV ASDIRECTED [facility] Last Admin: 06/04/17 01:09 Dose: 100 mls/hr Potassium Acetate 20 meq/ (Dextrose/Sodium Chloride) 1,010 mls @ 150 mls/hr IV .Q6H44M [facility] Last Admin: 06/05/17 07:20 Dose: 150 mls/hr Phytonadione 10 mg/ Sodium (Chloride) 51 mls @ 51 mls/hr IV ONETIME ONE Stop: 06/04/17 09:59 Last Admin: 06/04/17 09:04 Dose: 51 mls/hr Clindamycin Phosphate 900 mg/ (Sodium Chloride) 106 mls @ 212 mls/hr IV Q8H [facility] Last Admin: 06/09/17 16:45 Dose: 212 mls/hr Ciprofloxacin/Dextrose 400 mg/ (Premix) 200 mls @ 200 mls/hr IV Q12H [facility] Last Admin: 06/09/17 21:43 Dose: 200 mls/hr Potassium Phosphate 30 mmole/Lidocaine HCl 3 ml/ Sodium Chloride 263 mls @ 66 mls/hr IV Q4H [facility] Stop: 06/05/17 17:59 Last Admin: 06/05/17 13:36 Dose: 66 mls/hr Potassium Acetate 20 meq/ (Dextrose/Sodium Chloride) 1,010 mls @ 100 mls/hr IV ASDIRECTED [facility] Last Admin: 06/08/17 04:45 Dose: 100 mls/hr Albumin Human (Albumin 25%) 25 gm in 100 mls @ 25 mls/hr IV Q24H [facility] Stop: 06/10/17 17:59 Last Admin: 06/10/17 13:32 Dose: 25 mls/hr Albumin Human (Albumin 25%) 25 gm in 100 mls @ 25 mls/hr IV Q24H [facility] Stop: 06/10/17 21:59 Last Admin: 06/10/17 18:02 Dose: 25 mls/hr Sodium Chloride (Normal Saline) 80 mls @ 3 mls/sec IV ASDIRECTED [facility] Last Admin: 06/09/17 23:53 Dose: 3 mls/sec Aztreonam 1 gm/ Sodium (Chloride) 100 mls @ 200 mls/hr IV Q8HR [facility] Last Admin: 06/10/17 05:51 Dose: 200 mls/hr Meropenem 1 gm/ Sodium (Chloride) 100 mls @ 200 mls/hr IV Q8H [facility] Last Admin: 06/10/17 01:56 Dose: 200 mls/hr Vancomycin HCl 1.75 gm/ Sodium (Chloride) 500 mls @ 250 mls/hr IV Q12H [facility] Last Admin: 06/10/17 02:46 Dose: 250 mls/hr Aztreonam/Dextrose 1 gm/ (Premix) 50 mls @ 100 mls/hr IV Q8HR [facility] Last Admin: 06/12/17 05:04 Dose: 100 mls/hr Meropenem 1 gm/ Sodium (Chloride) 100 mls @ 200 mls/hr IV Q8H [facility] Last Admin: 06/13/17 11:03 Dose: 200 mls/hr Vancomycin HCl 1.8 gm/ Sodium (Chloride) 250 mls @ 167 mls/hr IV Q12H [facility] Last Admin: 06/11/17 02:42 Dose: 167 mls/hr Magnesium Sulfate 2 gm/ Premix 50 mls @ 25 mls/hr IV ONETIME ONE Stop: 06/10/17 11:59 Last Admin: 06/10/17 09:15 Dose: 25 mls/hr Linezolid 600 mg/ Premix 300 mls @ 300 mls/hr IV ONETIME ONE Stop: 06/11/17 06:43 Last Admin: 06/11/17 05:56 Dose: 300 mls/hr Linezolid (Zyvox) Confirm Administered Dose 300 mls @ as directed .ROUTE .STK- MED ONE Stop: 06/11/17 05:46 Last Admin: 06/11/17 05:57 Dose: Not Given Vancomycin HCl 1.8 gm/ Sodium (Chloride) 250 mls @ 167 mls/hr IV Q12H [facility] Last Admin: 06/12/17 03:04 Dose: 167 mls/hr Linezolid 600 mg/ Premix 300 mls @ 300 mls/hr IV ONETIME ONE Stop: 06/12/17 06:59 Last Admin: 06/12/17 06:16 Dose: 300 mls/hr Clindamycin Phosphate 600 mg/ (Sodium Chloride) 54 mls @ 100 mls/hr IV Q8H [facility] Last Admin: 06/13/17 12:06 Dose: 100 mls/hr Iopamidol (Isovue-370 (76%)) 100 ml IV . DIRECTED [facility] Last Admin: 06/09/17 23:54 Dose: 100 ml Lactulose (Chronulac) 10 gm PO ONETIME ONE Stop: 06/07/17 15:01 Last Admin: 06/07/17 14:54 Dose: 10 gm Lactulose (Chronulac) 15 gm PO BID [facility] Last Admin: 06/10/17 09:13 Dose: 15 gm Lidocaine HCl (Xylocaine 2% Jelly) 10 ml MUCMEM ONETIME ONE Stop: 06/02/17 20:19 Last Admin: 06/02/17 20:37 Dose: 10 ml Lidocaine HCl (Xylocaine 2% Jelly) 10 ml MUCMEM ONETIME ONE Stop: 06/10/17 00:48 Last Admin: 06/10/17 01:56 Dose: 10 ml Lidocaine/Epinephrine (Xylocaine 1% With Epinephrine 1:100,000) Confirm Administered Dose 50 ml .ROUTE .STK-MED ONE Stop: 06/03/17 12:26 Last Admin: 06/03/17 12:24 Dose: 5 ml Linezolid (Zyvox) 200 mg IRR .STK-MED ONE Stop: 06/03/17 12:28 Last Admin: 06/03/17 12:27 Dose: 200 mg Lisinopril (Prinivil) 10 mg PO DAILY [facility] Meropenem (Merrem) Confirm Administered Dose 500 mg .ROUTE .STK-MED ONE Stop: 06/03/17 10:05 Last Admin: 06/03/17 12:27 Dose: 500 mg Pantoprazole Sodium (Protonix Iv) 40 mg IV Q24H [facility] Last Admin: 06/04/17 15:12 Dose: 40 mg Propofol (Diprivan 20 Ml) Confirm Administered Dose 200 mg .ROUTE .STK-MED ONE Stop: 06/03/17 12:08 Sodium Chloride (Saline Flush) 10 ml FLUSH ASDIRECTED PRN PRN Reason: Keep Vein Open Spironolactone (Aldactone) 25 mg PO BIDDIURETIC [facility] Last Admin: 06/12/17 08:08 Dose: 25 mg Spironolactone (Aldactone) 25 mg PO ONETIME ONE Stop: 06/12/17 09:46 Last Admin: 06/12/17 09:50 Dose: 25 mg Tramadol HCl (Ultram) 0 mg PO Q4H PRN PRN Reason: PAIN Vancomycin HCl (Vancomycin) 1 gm IV .PHARMACY TO DOSE [facility] Stop: 06/10/17 08:00 Vancomycin HCl (Vancomycin) Confirm Administered Dose 2,000 mg .ROUTE .STK-MED ONE Stop: 06/10/17 02:29 Last Admin: 06/10/17 02:47 Dose: Not Given - Exam Quality Assessment: No: Supplemental Oxygen General: Alert, Oriented, Cooperative, No Acute Distress Neck: Supple Lungs: Normal Respiratory Effort Cardiovascular: Regular Rate, Regular Rhythm GI/Abdominal Exam: Soft, Distended Extremities: Pedal Edema (pitting edema from foot to the waist bilaterally ). No: Increased Warmth Skin: Warm, Dry Psy/Mental Status: Alert, Normal Affect - Problem List Review Problem List Initiated/Reviewed/Updated: Yes - My Orders Last 24 Hours: My Active Orders 06/14/17 14:30 Bumetanide [Bumex] 1 mg IVPUSH BIDDIURETIC 06/15/17 05:00 BASIC METABOLIC PANEL,BMP [CHEM] Timed CBC W/O DIFF,HEMOGRAM [HEME] Timed (1) MAGNESIUM [CHEM] Timed - Plan Plan:: ASSESSMENT AND PLAN Cirrhosis - complicated by massive ascites, Pancytopenia, coagulopathy. Volume overload seems to be his biggest issue at this time but with his intravascular depletion getting rid of the third spaced fluid is very difficult. 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 No recurrent temperature elevations over the past 48 hours. Cultures have been negative. -Continue current antibiotic therapy with ciprofloxacin and clindamycin -local wound care Hypoxic respiratory compromise - resolved following most recent paracentesis. -Continue supplemental oxygen as needed Anasarca - diuresis has not been great secondary to borderline intravascular depletion in the setting of massive total body volume overload. -Saline lock IV -2 g sodium diet -Bumetanide twice daily Acute blood loss anemia - hemoglobin stable just over 8. -Hemoglobin daily -consider transfusion if less than 8 Acute kidney injury - kidney function stable. -Follow-up labs daily Kike Day M.D.
--- NOTE | 2017-06-14 15:16 | OR ---
DATE OF PROCEDURE: 06/11/2017 PREOPERATIVE DIAGNOSIS: Tense ascites. POSTOPERATIVE DIAGNOSIS: Tense ascites with probable focal solidification of ascitic fluid. OPERATIVE PROCEDURE: Ultrasound-guided paracentesis (75571). ANESTHESIA: Local. INDICATION FOR PROCEDURE: The patient has hepatic cirrhosis and has developed recurrent tense ascites. The patient had an area marked on the right midabdomen yesterday by ultrasound for a location of the paracentesis. That area was then prepped and draped and anesthetized with 1% lidocaine mixed with Marcaine. The paracentesis catheter was then placed. Initially, good flow of fluid was obtained and roughly 100 mL was obtained. A portion of this was sent for Gram stain and culture. Beyond that, however, we could not obtain any additional fluid, despite manipulation of the catheter in various positions. It appeared, most likely, this area may have developed more of a semisolid gelatinous type consistency. Zyvox solution 600 mg was then injected, and a pursestring stitch was placed around the catheter site with the catheter then being withdrawn, that being tied up, and dressing applied. The plan will be to obtain a new location by ultrasound for the paracentesis. We will most likely identify an area more in the left midabdomen, which will likely give us a better paracentesis, and we will proceed with a repeat paracentesis either tomorrow or later today. Bimal Kramer MD /[id number]
[2017-06-14] MEDS: Bumetanide 1 MG/4 ML MDV IVPUSH SCH (15:55)
[2017-06-14] MEDS: Tamsulosin 0.4 MG Cap.ER PO SCH (21:52)
[2017-06-15] MEDS: Ciprofloxacin in D5W 400 MG in Premix Bag 1 BAG IV SCH ×2 (03:14)
[2017-06-15] MEDS: oxyCODONE 5 MG Tab PO PRN ×4 (03:35→22:05)
[2017-06-15] MEDS: Pantoprazole 40 MG Tab.CR PO SCH (07:39)
[2017-06-15] MEDS: Spironolactone 25 MG Tab PO SCH ×2 (07:39→14:48)
[2017-06-15] MEDS: Bumetanide 1 MG/4 ML MDV IVPUSH SCH ×2 (08:17→15:22)
[2017-06-15] MEDS ORDERED: Lidocaine 1% with EPINEPHrine 1:100,000 50 ML MDV INFILT ONE (09:00)
[2017-06-15] MEDS: Magnesium Oxide 400 MG Tab PO SCH ×2 (09:05→20:06)
[2017-06-15] MEDS: Mineral Oil/Petrolatum,Hydrophilic Ointment 100 GM Jar TOP SCH ×2 (09:05→20:06)
[2017-06-15] MEDS: Lactulose Soln 10 GM/15 ML 15 ML UD Cup PO SCH ×2 (09:06→20:06)
[2017-06-15] MEDS: Magnesium Sulfate/Water 2 GM in Premix Bag 1 BAG IV SCH ×3 (09:09→22:05)
--- NOTE | 2017-06-15 10:48 | PCM.PN ---
- General Info Date of Service: 06/15/17 Functional Status: Reports: Pain Controlled, Tolerating Diet - Review of Systems General: Reports: Weakness. Denies: Fever Gastrointestinal: Denies: Abdominal Pain Systems Review Comment:: No acute events overnight. Patient continues to experience some fatigue and abdominal distention but otherwise feels fairly well. He has not had any fevers. He does not have much in the way of abdominal pain. Tolerating his diet. Still having difficulty with draining from his paracentesis sites and had approximately 2000 mL out in the past 24 hours. Blood tests have remained stable other than a mild decrease in his hemoglobin. Lower extremity edema remains fairly impressive but seems to be slowly getting better. - Patient Data Vitals - Most Recent: Last Vital Signs Temp 36.4 C 06/15/17 08:06 Pulse 88 06/15/17 08:06 Resp 16 06/15/17 08:06 BP 93/43 L 06/15/17 08:17 Pulse Ox 93 L 06/15/17 08:06 Weight - Most Recent: 122.697 kg I&O - Last 24 Hours: Intake & Output 06/14/17 06/15/17 06/15/17 22:59 06:59 14:59 Intake Total 1650 570 Output Total 1370 1675 1075 Balance 711 -2307 -126 Lab Results Last 24 Hours: Laboratory Results - last 24 hr 06/15/17 06/15/17 06/15/17 Range/Units 05:00 05:00 05:55 WBC 9.6 (4.5-11.0) K/uL RBC 2.43 L (4.30-5.90) M/uL Hgb 7.8 L (12.0-15.0) g/dL Hct 23.0 L (40.0-54.0) % MCV 95 (80-98) fL MCH 32 H (27-31) pg MCHC 34 (32-36) % Plt Count 79 L (150-400) K/uL Sodium 130 L (140-148) mmol/L Potassium 3.8 (3.6-5.2) mmol/L Chloride 99 L (100-108) mmol/L Carbon Dioxide 25 (21-32) mmol/L Anion Gap 9.8 (5.0-14.0) mmol/L BUN 10 (7-18) mg/dL Creatinine 0.7 L (0.8-1.3) mg/dL Est Cr Clr Drug Dosing 126.32 mL/min Estimated GFR (MDRD) > 60 (>60) Glucose 93 (74-106) mg/dL Calcium 7.1 L (8.5-10.1) mg/dL Magnesium 1.5 L (1.8-2.4) mg/dL Blood Type O POSITIVE Gel Antibody Screen Negative Crossmatch See Detail Victor Manuel Results Last 24 Hours: Microbiology 06/12/17 06:50 Gram Stain - Final Peritoneal Fluid Body Fluid Culture - Final NO GROWTH AFTER 3 DAYS 06/10/17 01:00 Aerobic Blood Culture - Final Blood - Venous - Lab Draw NO GROWTH AFTER 5 DAYS Anaerobic Blood Culture - Final NO GROWTH AFTER 5 DAYS 06/10/17 01:10 Aerobic Blood Culture - Final Blood - Venous NO GROWTH AFTER 5 DAYS Anaerobic Blood Culture - Final NO GROWTH AFTER 5 DAYS 06/11/17 06:46 Gram Stain - Final Peritoneal Fluid Body Fluid Culture - Final NO GROWTH AFTER 3 DAYS Med Orders - Current: Current Medications Bumetanide (Bumex) 1 mg IVPUSH BIDDIURETIC [facility] Last Admin: 06/15/17 08:17 Dose: 1 mg Clindamycin Phosphate 600 mg/ (Sodium Chloride) 54 mls @ 100 mls/hr IV Q8H [facility] Last Admin: 06/15/17 04:46 Dose: 100 mls/hr Ciprofloxacin/Dextrose 400 mg/ (Premix) 200 mls @ 200 mls/hr IV Q12H [facility] Last Admin: 06/15/17 03:14 Dose: 200 mls/hr Magnesium Sulfate 2 gm/ Premix 50 mls @ 25 mls/hr IV Q6H [facility] Stop: 06/17/17 05:59 Last Admin: 06/15/17 09:09 Dose: 25 mls/hr Lactulose (Chronulac) 15 gm PO BID [facility] Last Admin: 06/15/17 09:06 Dose: 15 gm Magnesium Oxide (Magnesium Oxide) 400 mg PO BID [facility] Last Admin: 06/15/17 09:05 Dose: 400 mg Melatonin (Melatonin) 6 mg PO BEDTIME PRN PRN Reason: Insomnia Last Admin: 06/14/17 00:27 Dose: 6 mg Mineral Oil/White Petrolatum (Hydrophor Oint) 0 gm TOP BID [facility] Last Admin: 06/15/17 09:05 Dose: 1 applic Oxycodone HCl (Oxycodone) 5 mg PO Q4H PRN PRN Reason: PAIN Last Admin: 06/15/17 09:04 Dose: 5 mg Pantoprazole Sodium (Protonix) 40 mg PO ACBREAKFAST [facility] Last Admin: 06/15/17 07:39 Dose: 40 mg Spironolactone (Aldactone) 50 mg PO BIDDIURETIC [facility] Last Admin: 06/15/17 07:39 Dose: 50 mg Tamsulosin HCl (Flomax) 0.4 mg PO BEDTIME [facility] Last Admin: 06/14/17 21:52 Dose: 0.4 mg Discontinued Medications Albuterol/Ipratropium (Duoneb 3.0-0.5 Mg/3 Ml) 3 ml NEB ONETIME STA Stop: 06/09/17 21:54 Last Admin: 06/09/17 22:00 Dose: 3 ml Bumetanide (Bumex) 2 mg IVPUSH Q12H [facility] Last Admin: 06/14/17 06:42 Dose: Not Given Bupivacaine HCl (Marcaine 0.5%) Confirm Administered Dose 50 ml .ROUTE .STK-MED ONE Stop: 06/03/17 12:26 Last Admin: 06/03/17 12:24 Dose: 5 ml Furosemide (Lasix) 40 mg PO BIDDIURETIC [facility] Last Admin: 06/09/17 07:42 Dose: 40 mg Furosemide (Lasix) 40 mg IVPUSH Q12H [facility] Last Admin: 06/11/17 07:34 Dose: 40 mg Furosemide 40 mg/ Furosemide (20 mg) 60 mg IV Q12H [facility] Last Admin: 06/12/17 08:07 Dose: 60 mg Hydrocortisone Sodium Succinate (Solu-Cortef) 100 mg IVPUSH ONETIME ONE Stop: 06/03/17 04:03 Last Admin: 06/03/17 04:48 Dose: 100 mg Dextrose/Lactated Ringer's (Dextrose 5%-Lactated Ringers) 1,000 mls @ 100 mls/ hr IV ASDIRECTED [facility] Last Admin: 06/02/17 15:03 Dose: 100 mls/hr Linezolid 600 mg/ Premix 300 mls @ 300 mls/hr IV Q12H [facility] Last Admin: 06/05/17 03:32 Dose: 300 mls/hr Lactated Ringer's (Ringers, Lactated) 500 mls @ 500 mls/hr IV BOLUS ONE Stop: 06/02/17 16:58 Last Admin: 06/02/17 16:10 Dose: 500 mls/hr Dextrose/Lactated Ringer's (Dextrose 5%-Lactated Ringers) 1,000 mls @ 150 mls/ hr IV ASDIRECTED [facility] Last Admin: 06/03/17 05:08 Dose: 150 mls/hr Sodium Chloride (Normal Saline) 1,000 mls @ 999 mls/hr IV .BOLUS ONE Stop: 06/02/17 21:06 Last Admin: 06/02/17 20:10 Dose: 999 mls/hr Sodium Chloride (Normal Saline) 1,000 mls @ 999 mls/hr IV .BOLUS ONE Stop: 06/02/17 22:08 Last Admin: 06/02/17 21:14 Dose: 999 mls/hr Lactated Ringer's (Ringers, Lactated) 1,000 mls @ 500 mls/hr IV ASDIRECTED [facility] Stop: 06/03/17 02:30 Last Admin: 06/03/17 00:43 Dose: 500 mls/hr Sodium Chloride (Normal Saline) 1,000 mls @ 1,000 drops/min IV .BOLUS ONE Stop: 06/03/17 02:54 Last Admin: 06/03/17 04:31 Dose: 1,000 drops/min Norepinephrine Bitartrate 4 mg (/ Dextrose/Water) 250 mls @ 7.5 mls/hr IV TITRATE DAVID; 2 MCG/MIN PRN Reason: Protocol Last Titration: 06/04/17 08:19 Dose: 0 mcg/min, 0 mls/hr Sodium Chloride (Normal Saline) 500 mls @ 999 mls/hr IV BOLUS [facility]ID Stop: 06/03/17 04:46 Last Admin: 06/03/17 04:20 Dose: 999 mls/hr Dextrose/Water (Dextrose 5% In Water) Confirm Administered Dose 250 mls @ as directed .ROUTE .STK-MED ONE Stop: 06/03/17 04:11 Last Admin: 06/03/17 04:29 Dose: Not Given Meropenem 500 mg/ Sodium (Chloride) 100 mls @ 200 mls/hr IV Q8H [facility] Last Admin: 06/03/17 05:42 Dose: 200 mls/hr Sodium Chloride (Normal Saline) 1,000 mls @ 999 mls/hr IV .BOLUS ONE Stop: 06/03/17 07:36 Last Admin: 06/03/17 06:44 Dose: 999 mls/hr Sodium Chloride (Normal Saline) 1,000 mls @ 500 mls/hr IV ASDIRECTED [facility] Last Admin: 06/03/17 07:00 Dose: 500 mls/hr Meropenem 500 mg/ Sodium (Chloride) 50 mls @ 100 mls/hr IV Q8HR [facility] Last Admin: 06/05/17 05:13 Dose: 100 mls/hr Magnesium Sulfate 2 gm/ Premix 50 mls @ 25 mls/hr IV Q6HR [facility] Stop: 06/06/17 05:59 Last Admin: 06/06/17 04:22 Dose: 25 mls/hr Linezolid (Zyvox) Confirm Administered Dose 100 mls @ as directed .ROUTE .STK- MED ONE Stop: 06/03/17 10:05 Sodium Chloride (Normal Saline) 1,000 mls @ 300 mls/hr IV ASDIRECTED [facility] Last Admin: 06/03/17 14:07 Dose: 300 mls/hr Dextrose/Lactated Ringer's (Dextrose 5%-Lactated Ringers) 1,000 mls @ 100 mls/ hr IV ASDIRECTED [facility] Last Admin: 06/03/17 14:07 Dose: 100 mls/hr Albumin Human (Albumin 25%) 25 gm in 100 mls @ 25 mls/hr IV Q24H [facility] Stop: 06/06/17 17:59 Last Admin: 06/06/17 15:19 Dose: 25 mls/hr Albumin Human (Albumin 25%) 25 gm in 100 mls @ 25 mls/hr IV Q24H [facility] Stop: 06/06/17 21:59 Last Admin: 06/06/17 19:25 Dose: 25 mls/hr Sodium Chloride (Normal Saline) 1,000 mls @ 25 mls/hr IV ASDIRECTED [facility]ID Dextrose/Lactated Ringer's (Dextrose 5%-Lactated Ringers) 1,000 mls @ 100 mls/ hr IV ASDIRECTED [facility] Last Admin: 06/04/17 01:09 Dose: 100 mls/hr Potassium Acetate 20 meq/ (Dextrose/Sodium Chloride) 1,010 mls @ 150 mls/hr IV .Q6H44M [facility] Last Admin: 06/05/17 07:20 Dose: 150 mls/hr Phytonadione 10 mg/ Sodium (Chloride) 51 mls @ 51 mls/hr IV ONETIME ONE Stop: 06/04/17 09:59 Last Admin: 06/04/17 09:04 Dose: 51 mls/hr Clindamycin Phosphate 900 mg/ (Sodium Chloride) 106 mls @ 212 mls/hr IV Q8H [facility] Last Admin: 06/09/17 16:45 Dose: 212 mls/hr Ciprofloxacin/Dextrose 400 mg/ (Premix) 200 mls @ 200 mls/hr IV Q12H [facility] Last Admin: 06/09/17 21:43 Dose: 200 mls/hr Potassium Phosphate 30 mmole/Lidocaine HCl 3 ml/ Sodium Chloride 263 mls @ 66 mls/hr IV Q4H [facility] Stop: 06/05/17 17:59 Last Admin: 06/05/17 13:36 Dose: 66 mls/hr Potassium Acetate 20 meq/ (Dextrose/Sodium Chloride) 1,010 mls @ 100 mls/hr IV ASDIRECTED [facility] Last Admin: 06/08/17 04:45 Dose: 100 mls/hr Albumin Human (Albumin 25%) 25 gm in 100 mls @ 25 mls/hr IV Q24H [facility] Stop: 06/10/17 17:59 Last Admin: 06/10/17 13:32 Dose: 25 mls/hr Albumin Human (Albumin 25%) 25 gm in 100 mls @ 25 mls/hr IV Q24H [facility] Stop: 06/10/17 21:59 Last Admin: 06/10/17 18:02 Dose: 25 mls/hr Sodium Chloride (Normal Saline) 80 mls @ 3 mls/sec IV ASDIRECTED [facility] Last Admin: 06/09/17 23:53 Dose: 3 mls/sec Aztreonam 1 gm/ Sodium (Chloride) 100 mls @ 200 mls/hr IV Q8HR [facility] Last Admin: 06/10/17 05:51 Dose: 200 mls/hr Meropenem 1 gm/ Sodium (Chloride) 100 mls @ 200 mls/hr IV Q8H [facility] Last Admin: 06/10/17 01:56 Dose: 200 mls/hr Vancomycin HCl 1.75 gm/ Sodium (Chloride) 500 mls @ 250 mls/hr IV Q12H [facility] Last Admin: 06/10/17 02:46 Dose: 250 mls/hr Aztreonam/Dextrose 1 gm/ (Premix) 50 mls @ 100 mls/hr IV Q8HR [facility] Last Admin: 06/12/17 05:04 Dose: 100 mls/hr Meropenem 1 gm/ Sodium (Chloride) 100 mls @ 200 mls/hr IV Q8H [facility] Last Admin: 06/13/17 11:03 Dose: 200 mls/hr Vancomycin HCl 1.8 gm/ Sodium (Chloride) 250 mls @ 167 mls/hr IV Q12H [facility] Last Admin: 06/11/17 02:42 Dose: 167 mls/hr Magnesium Sulfate 2 gm/ Premix 50 mls @ 25 mls/hr IV ONETIME ONE Stop: 06/10/17 11:59 Last Admin: 06/10/17 09:15 Dose: 25 mls/hr Linezolid 600 mg/ Premix 300 mls @ 300 mls/hr IV ONETIME ONE Stop: 06/11/17 06:43 Last Admin: 06/11/17 05:56 Dose: 300 mls/hr Linezolid (Zyvox) Confirm Administered Dose 300 mls @ as directed .ROUTE .STK- MED ONE Stop: 06/11/17 05:46 Last Admin: 06/11/17 05:57 Dose: Not Given Vancomycin HCl 1.8 gm/ Sodium (Chloride) 250 mls @ 167 mls/hr IV Q12H [facility] Last Admin: 06/12/17 03:04 Dose: 167 mls/hr Linezolid 600 mg/ Premix 300 mls @ 300 mls/hr IV ONETIME ONE Stop: 06/12/17 06:59 Last Admin: 06/12/17 06:16 Dose: 300 mls/hr Clindamycin Phosphate 600 mg/ (Sodium Chloride) 54 mls @ 100 mls/hr IV Q8H [facility] Last Admin: 06/13/17 12:06 Dose: 100 mls/hr Iopamidol (Isovue-370 (76%)) 100 ml IV . DIRECTED [facility] Last Admin: 06/09/17 23:54 Dose: 100 ml Lactulose (Chronulac) 10 gm PO ONETIME ONE Stop: 06/07/17 15:01 Last Admin: 06/07/17 14:54 Dose: 10 gm Lactulose (Chronulac) 15 gm PO BID [facility] Last Admin: 06/10/17 09:13 Dose: 15 gm Lidocaine HCl (Xylocaine 2% Jelly) 10 ml MUCMEM ONETIME ONE Stop: 06/02/17 20:19 Last Admin: 06/02/17 20:37 Dose: 10 ml Lidocaine HCl (Xylocaine 2% Jelly) 10 ml MUCMEM ONETIME ONE Stop: 06/10/17 00:48 Last Admin: 06/10/17 01:56 Dose: 10 ml Lidocaine/Epinephrine (Xylocaine 1% With Epinephrine 1:100,000) Confirm Administered Dose 50 ml .ROUTE .STK-MED ONE Stop: 06/03/17 12:26 Last Admin: 06/03/17 12:24 Dose: 5 ml Lidocaine/Epinephrine (Xylocaine 1% With Epinephrine 1:100,000) 0 ml INFILT ONETIME ONE Stop: 06/15/17 09:01 Last Admin: 06/15/17 08:50 Dose: 1 ml Linezolid (Zyvox) 200 mg IRR .STK-MED ONE Stop: 06/03/17 12:28 Last Admin: 06/03/17 12:27 Dose: 200 mg Lisinopril (Prinivil) 10 mg PO DAILY [facility] Meropenem (Merrem) Confirm Administered Dose 500 mg .ROUTE .STK-MED ONE Stop: 06/03/17 10:05 Last Admin: 06/03/17 12:27 Dose: 500 mg Pantoprazole Sodium (Protonix Iv) 40 mg IV Q24H [facility] Last Admin: 06/04/17 15:12 Dose: 40 mg Propofol (Diprivan 20 Ml) Confirm Administered Dose 200 mg .ROUTE .STK-MED ONE Stop: 06/03/17 12:08 Sodium Chloride (Saline Flush) 10 ml FLUSH ASDIRECTED PRN PRN Reason: Keep Vein Open Spironolactone (Aldactone) 25 mg PO BIDDIURETIC [facility] Last Admin: 06/12/17 08:08 Dose: 25 mg Spironolactone (Aldactone) 25 mg PO ONETIME ONE Stop: 06/12/17 09:46 Last Admin: 06/12/17 09:50 Dose: 25 mg Tramadol HCl (Ultram) 0 mg PO Q4H PRN PRN Reason: PAIN Vancomycin HCl (Vancomycin) 1 gm IV .PHARMACY TO DOSE DAVID Stop: 06/10/17 08:00 Vancomycin HCl (Vancomycin) Confirm Administered Dose 2,000 mg .ROUTE .STK-MED ONE Stop: 06/10/17 02:29 Last Admin: 06/10/17 02:47 Dose: Not Given - Exam Quality Assessment: No: Supplemental Oxygen General: Alert, Oriented, Cooperative, No Acute Distress Neck: Supple Lungs: Clear to Auscultation, Normal Respiratory Effort Cardiovascular: Regular Rate, Regular Rhythm GI/Abdominal Exam: Normal Bowel Sounds, Soft, Non-Tender, Distended Extremities: Pedal Edema (massive pitting edema to the waist bilaterally ). No : Increased Warmth Skin: Warm, Dry Psy/Mental Status: Alert, Normal Affect - Problem List Review Problem List Initiated/Reviewed/Updated: Yes - My Orders Last 24 Hours: My Active Orders 06/14/17 14:30 Bumetanide [Bumex] 1 mg IVPUSH BIDDIURETIC 06/15/17 05:55 RED BLOOD CELLS LP [BBK] Routine TYPE AND SCREEN [BBK] Routine 06/15/17 08:24 Transfuse Red Blood Cells [COMM] Routine Transfuse Red Blood Cells [COMM] Routine - Plan Plan:: ASSESSMENT AND PLAN Cirrhosis - complicated by massive ascites, Pancytopenia, coagulopathy. Still impressive lower extremity edema/anasarca as well as ongoing evidence for ascites. Significant drainage from previous ascites sites. Laboratory studies have been relatively stable. Patient has been clinically stable. 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 No recent temperature elevations. Repeat cultures have been negative. -Continue current antibiotic therapy with ciprofloxacin and clindamycin, plan discharge to home on monotherapy with ciprofloxacin -local wound care Hypoxic respiratory compromise - resolved following most recent paracentesis. -Continue supplemental oxygen as needed Anasarca - diuresis has not been great secondary to borderline intravascular depletion in the setting of massive total body volume overload. -Saline lock IV -2 g sodium diet -Bumetanide twice daily -Spironolactone twice daily Acute blood loss anemia - hemoglobin has dipped below 8. -Transfuse 1 unit of packed red blood cells -Hemoglobin in the morning Acute kidney injury - kidney function stable. -Follow-up labs daily Disposition - anticipate discharge to home tomorrow with home health care. Kike Day M.D.
[2017-06-15] MEDS: Bumetanide 1 MG Tab PO SCH (16:00)
[2017-06-15] MEDS: Ciprofloxacin 500 MG Tab PO SCH (16:00)
[2017-06-15] MEDS: Tamsulosin 0.4 MG Cap.ER PO SCH (20:06)
[2017-06-15] MEDS: Clindamycin HCl 150 MG Cap PO SCH (20:06)
[2017-06-15] MEDS: Melatonin 3 MG Tab PO PRN (22:05)
[2017-06-16] MEDS: oxyCODONE 5 MG Tab PO PRN (02:07)
[2017-06-16] MEDS: Clindamycin HCl 150 MG Cap PO SCH ×2 (02:08→08:21)
[2017-06-16] MEDS: Magnesium Sulfate/Water 2 GM in Premix Bag 1 BAG IV SCH ×2 (03:53→12:08)
--- NOTE | 2017-06-16 07:58 | PN ---
DATE OF SERVICE: 06/16/2017 SUBJECTIVE: Yvon continues to have some leaking at that paracentesis site on the right lateral abdomen. It was sutured yesterday and had Dermabond. Nursing staff has a colostomy bag over that. It is draining a clear serosanguineous drainage. Vital signs have been stable and pain has been well controlled. REVIEW OF SYSTEMS: Remainder of review of systems was reviewed and negative for any other positives or negatives. OBJECTIVE: GENERAL: Yvon Beach is a 52-year-old male. VITAL SIGNS: TPR is 98.5, 91, 14. Blood pressure 89/43. HEENT: Negative. NECK: Supple. HEART: Regular rate and rhythm. LUNGS: Decreased breath sounds bilaterally. ABDOMEN: Distended. Dr. Bimal Kramer sutured at paracentesis site and applied Dermabond to that area at bedside this a.m. EXTREMITIES: With peripheral edema. ASSESSMENT: 1. Sepsis, resolved. 2. Limited laparotomy with removal of peritoneal venous shunt and closure of fascial dehiscence for exposure of peritoneal venous shunt, fascial dehiscence at the site of fascia, closure of abdominal entrance with peritoneal venous shunt. Date of surgery 06/03/2017. 3. Paracentesis on 06/07/2017, 4 L removed. 4. Paracentesis on 06/12/2017, 3 L removed. 5. Cirrhosis of liver and ascites. PLAN: He is planning to be discharged today and he is to follow up with Bimal Kramer MD on 06/23/2017 at 11:00 a.m. Юлия Clayton PA-C /[id number]
[2017-06-16] MEDS: Ciprofloxacin 500 MG Tab PO SCH (08:20)
[2017-06-16] MEDS: Spironolactone 25 MG Tab PO SCH (08:20)
[2017-06-16] MEDS: Pantoprazole 40 MG Tab.CR PO SCH (08:20)
[2017-06-16] MEDS: Lactulose Soln 10 GM/15 ML 15 ML UD Cup PO SCH (08:21)
[2017-06-16] MEDS: Bumetanide 1 MG Tab PO SCH (08:21)
[2017-06-16] MEDS: Magnesium Oxide 400 MG Tab PO SCH (08:22)
[2017-06-16] MEDS: Mineral Oil/Petrolatum,Hydrophilic Ointment 100 GM Jar TOP SCH (08:22)
--- NOTE | 2017-06-16 10:42 | PCM.DCSUM1 ---
Discharge Summary - Hospital Course Brief History: 52-year-old male with cirrhosis with multiple complications including ascites and recent [place] shunt placement who presented abdominal pain , weakness and hypotension. He was admitted for management of sepsis and concern for infection of the [place] shunt. - Discharge Data Discharge Date: 06/16/17 Discharge Disposition: Home, [facility] 06 Condition: Fair - Discharge Diagnosis/Problem(s) (1) Septic shock due to Staphylococcus SNOMED Code(s): 832157261 ICD Code: A41.2 - SEPSIS DUE TO UNSPECIFIED STAPHYLOCOCCUS; R65.21 - SEVERE SEPSIS WITH SEPTIC SHOCK Status: Acute (2) Acute blood loss anemia SNOMED Code(s): 459325333 ICD Code: D62 - ACUTE POSTHEMORRHAGIC ANEMIA Status: Acute (3) Hematoma SNOMED Code(s): 491398488 ICD Code: T14.8XXA - OTHER INJURY OF UNSPECIFIED BODY REGION, INITIAL ENCOUNTER Status: Acute Problem Details: mid and upper back (4) End stage liver disease SNOMED Code(s): 196714547 ICD Code: K72.90 - HEPATIC FAILURE, UNSPECIFIED WITHOUT COMA Status: Acute (5) Cirrhosis of liver with ascites SNOMED Code(s): 78696558 ICD Code: K74.60 - UNSPECIFIED CIRRHOSIS OF LIVER Status: Acute Qualifiers: Hepatic cirrhosis type: unspecified hepatic cirrhosis Qualified Code(s): K74.60 - Unspecified cirrhosis of liver (6) Acute renal failure SNOMED Code(s): 86255144 ICD Code: N17.9 - ACUTE KIDNEY FAILURE, UNSPECIFIED Status: Acute Qualifiers: Acute renal failure type: with acute tubular necrosis Qualified Code(s): N17.0 - Acute kidney failure with tubular necrosis (7) Anasarca SNOMED Code(s): 530832286 ICD Code: R60.1 - GENERALIZED EDEMA Status: Acute (8) Hypokalemia SNOMED Code(s): 10544220 ICD Code: E87.6 - HYPOKALEMIA Status: Acute (9) Hyponatremia SNOMED Code(s): 23859157 ICD Code: E87.1 - HYPO-OSMOLALITY AND HYPONATREMIA Status: Acute - Patient Summary/Data Operative Procedure(s) Performed: Removal of [place] shunt and closure of fascial dehiscence at the site of shunt placement. Paracentesis performed on June 07, and . All procedures were performed by Dr. Kramer Consults: Consultations 06/06/17 07:39 Consult to Physician [CONS] Routine Consulting Provider: Kike Day Call Completed to Consulting Physician: Yes Reason for Consult: f/u re: increasing bili/liver insufficiency ?any tx changes Person Notified: will notify on am rounds 06/06/17 15:38 Consult to Spiritual Care [CONS] Routine Spiritual Care Reason for Consult: review code status 06/09/17 07:33 Consult to Biostatistician [CONS] Routine Comment: Physician Instructions: Quantity: Special Instructions: no appetite 06/09/17 14:45 Consult to Physical Therapy [PT Evaluation and Treatment] [CONS] Routine Please Evaluate and Treat. PT Reason for Consult: Strengthening This query below is only for informational purposes and is not editable. Admission Diagnosis/Problem: Wound drainage Hospital Course: Popeye presented to the surgery clinic with drainage from his [place] shunt placement site. There was an apparent fascial dehiscence at the operative site leading to the drainage. Initial laboratory workup revealed hyponatremia with a sodium of 122 as well as acute kidney injury with a creatinine of 2.5. Initial lactic acid was elevated greater than 4. He was empirically started on Linezolid. He received some IV fluids at the time of presentation but unfortunately overnight his condition worsened. He remained hypotensive despite multiple fluid challenges. Around 4 AM he was transferred to the intensive care unit and the hospitalist service was consulted for management. Antibiotic coverage was broadened to include meropenem and he was started on norepinephrine with septic shock. He was noted to have a large bruise/hematoma covering most of his back. I suspect this was related to some blood loss possibly related to the [place] shunt placement with back hematoma resulting. He did receive 2 units of blood via transfusion. His blood pressures did stabilize after the norepinephrine was initiated and titrated. Later that morning he was taken to the operating room and his [place] shunt was removed and the fascial dehiscence was closed. The fascial dehiscence was the likely portal of entry for the staph aureus. A Gram stain of the fluid obtained at the time of [place] shunt removal did show gram-positive cocci and later the culture grew out staph aureus. His urine culture was also growing staph aureus by the second day of hospital admission. Within 24 hours of transfer to the intensive care unit he was weaned off of the norepinephrine and his blood pressures remained stable. His kidney function had been improving slowly after the fluid challenges and use of norepinephrine. Once the septic shock resolved and cultures were available his antibiotics were adjusted to clindamycin and ciprofloxacin. He had significant peripheral edema and ascites following the volume resuscitation and diuretics were initiated as soon as possible after his blood pressures stabilized. He also received a paracentesis on June 07. Over the course of the next couple of days his kidney function returned to normal. There was some improvement in his clinical status but unfortunately he developed some confusion. Ammonia level was elevated and lactulose was initiated. He also had some difficulty with hypokalemia. He was starting to make some progress as far as strength towards the end of the first week in the hospital. On June 09 late in the evening he was noted to have increasing work of breathing and respiratory distress. He was again transferred to the intensive care unit. CT pulmonary angiogram was obtained and did not show evidence for pneumonia or pulmonary embolism. There was evidence for volume overload and more aggressive diuretics were initiated. He did require noninvasive ventilation overnight. As his fluid status improved his respiratory status did as well. Eventually improved enough that he could be transferred back out of the intensive care unit to the medical floor. Over the next few days he had slow but steady improvement in his strength. His ammonia level has remained stable and there is been no significant evidence for ongoing hepatic encephalopathy. His kidney function has remained stable. We have been making some progress with his edema utilizing twice daily bumetanide and spironolactone. He did have a paracentesis performed on both June 10 and with a total of 7 L of fluid removed. He has been working with physical therapy and making steady progress. He has received electrolyte supplementation along the way and also received albumin supplementation during the early part of his hospital stay. His hemoglobin has drifted down and he did receive 1 additional unit of blood via transfusion the day before discharge. He has made enough progress that I believe he is safe for outpatient management at this time. He would benefit from home health care to provide nursing and physical therapy to maximize his return to function. He will need for the half additional days of antibiotic therapy. He will be receiving a new prescription for both of his diuretics as well as tamsulosin to help improve urine flow. He would benefit from close clinical follow-up to ensure that he continues to do well after hospital discharge. During the course of the hospital stay we encountered multiple difficulties with his severe liver disease. He has had difficulty with anemia and thrombocytopenia as well as coagulopathy which did not reverse with vitamin K supplementation. Additional complications include ascites and hepatic encephalopathy. He has significant liver disease that is currently stable but is at a high risk for decompensation. His bilirubin levels peaked during the middle part of the hospital stay and have been trending down but remained elevated at around 5. His meld score on the day of discharge is 17. - Patient Instructions Diet: Low Sodium Activity: As Tolerated Driving: Do Not Drive (if taking pain pills) Showering/Bathing: May Shower Notify Provider of: Fever, Increased Pain, Nausea and/or Vomiting Other/Special Instructions: 1. You were in the hospital for management of septic shock caused by staph aureus. The presumed source of infection was the [place] shunt which has been removed. The septic shock has resolved. You will require 9 additional doses of antibiotic therapy to complete your course of antibiotics. Your next dose of ciprofloxacin is due tonight. As a result of the acute illness you have become very weak. We have placed a referral to home health care to help ease the transition home after the hospital stay. 2. Because of your liver disease, your body has difficulty metabolizing waste products including ammonia efficiently. I have prescribed lactulose to help remove these waste products from your body. This medication will cause loose stools and our goal is for you to have 2-3 loose stools per day. 3. Because of your liver disease you have significant edema of your legs as well as ascites in your belly. I have prescribed 2 different medications to help get rid of this fluid slowly. You should take both bumetanide and spironolactone twice daily with the first dose in the morning around 8 AM and the second dose in the afternoon between 2 and 3 PM. 4. Home care will assist with some of your dressing changes and instructions have been listed above. 5. It is important to maintain a low sodium diet to help reduce fluid retention because of your liver disease. We have provided some written information for you. 6. Please seek medical attention if you develop fever greater than 101, have severe abdominal pain, sudden onset of shortness of breath or if you have increasing swelling or abdominal distention. - Discharge Plan Prescriptions/Med Rec: Bumetanide [Bumex] 1 mg PO BIDDIURETIC #60 tablet Ciprofloxacin [Ciprofloxacin HCl] 500 mg PO BID #9 tablet Lactulose [Chronulac] 15 gm PO DAILY #30 cup Magnesium Oxide 400 mg PO BID #60 tablet oxyCODONE 5 mg PO Q4H PRN #20 tablet PRN Reason: PAIN Spironolactone 50 mg PO BID #60 tablet Tamsulosin [Flomax] 0.4 mg PO BEDTIME #30 cap.er Home Medications: Home Meds Ranitidine [Zantac] 150 mg PO DAILY 04/24/17 [History] Bumetanide [Bumex] 1 mg PO BIDDIURETIC #60 tablet 06/16/17 [Rx] Ciprofloxacin [Ciprofloxacin HCl] 500 mg PO BID #9 tablet 06/16/17 [Rx] Lactulose [Chronulac] 15 gm PO DAILY #30 cup 06/16/17 [Rx] Magnesium Oxide 400 mg PO BID #60 tablet 06/16/17 [Rx] Spironolactone 50 mg PO BID #60 tablet 06/16/17 [Rx] Tamsulosin [Flomax] 0.4 mg PO BEDTIME #30 cap.er 06/16/17 [Rx] oxyCODONE 5 mg PO Q4H PRN #20 tablet 06/16/17 [Rx] Patient Handouts: Cirrhosis, Ascites, Low-Sodium Eating Plan, Lactulose oral solution, Ciprofloxacin tablets Forms: Take Home DC Nutrition Plan Referrals: Bimal Kramer MD [Family Provider] - 06/23/17 11:00 am John Villalobos MD [Primary Care Provider] - (1 week - f/u complicated hospital stay for septic shock, cirrhosis) - Discharge Summary/Plan Comment DC Time >30 min.: Yes (45 - complicated d/c, setting up [facility]) - Patient Data Vitals - Most Recent: Last Vital Signs Temp 36.4 C 06/16/17 09:25 Pulse 103 H 06/16/17 09:25 Resp 16 06/16/17 09:25 BP 84/37 L 06/16/17 09:25 Pulse Ox 93 L 06/16/17 09:25 Weight - Most Recent: 122.47 kg I&O - Last 24 hours: Intake & Output 06/15/17 06/16/17 06/16/17 22:59 06:59 14:59 Intake Total 530 700 360 Output Total 650 525 Balance -120 175 360 Lab Results - Last 24 hrs: Laboratory Results - last 24 hr 06/15/17 06/16/17 06/16/17 Range/Units 05:55 04:44 04:44 WBC 9.7 (4.5-11.0) K/uL RBC 2.66 L (4.30-5.90) M/uL Hgb 8.5 L (12.0-15.0) g/dL Hct 25.2 L (40.0-54.0) % MCV 95 (80-98) fL MCH 32 H (27-31) pg MCHC 34 (32-36) % Plt Count 82 L (150-400) K/uL Sodium 130 L (140-148) mmol/L Potassium 4.0 (3.6-5.2) mmol/L Chloride 99 L (100-108) mmol/L Carbon Dioxide 24 (21-32) mmol/L Anion Gap 11.0 (5.0-14.0) mmol/L BUN 10 (7-18) mg/dL Creatinine 0.7 L (0.8-1.3) mg/dL Est Cr Clr Drug Dosing 126.32 mL/min Estimated GFR (MDRD) > 60 (>60) Glucose 89 (74-106) mg/dL Calcium 7.0 L (8.5-10.1) mg/dL Phosphorus 3.6 (2.5-4.9) mg/dL Total Bilirubin 5.9 H (0.2-1.0) mg/dL AST 51 H (15-37) U/L ALT 20 (12-78) U/L Alkaline Phosphatase 97 (46-116) U/L Ammonia (11-32) mmol/L Total Protein 4.8 L (6.4-8.2) g/dL Albumin 1.9 L (3.4-5.0) g/dL Globulin 2.9 (2.3-3.5) g/dL Albumin/Globulin Ratio 0.7 L (1.2-2.2) Blood Type O POSITIVE Gel Antibody Screen Negative Crossmatch See Detail 06/16/17 Range/Units 04:44 WBC (4.5-11.0) K/uL RBC (4.30-5.90) M/uL Hgb (12.0-15.0) g/dL Hct (40.0-54.0) % MCV (80-98) fL MCH (27-31) pg MCHC (32-36) % Plt Count (150-400) K/uL Sodium (140-148) mmol/L Potassium (3.6-5.2) mmol/L Chloride (100-108) mmol/L Carbon Dioxide (21-32) mmol/L Anion Gap (5.0-14.0) mmol/L BUN (7-18) mg/dL Creatinine (0.8-1.3) mg/dL Est Cr Clr Drug Dosing mL/min Estimated GFR (MDRD) (>60) Glucose (74-106) mg/dL Calcium (8.5-10.1) mg/dL Phosphorus (2.5-4.9) mg/dL Total Bilirubin (0.2-1.0) mg/dL AST (15-37) U/L ALT (12-78) U/L Alkaline Phosphatase (46-116) U/L Ammonia 39 H (11-32) mmol/L Total Protein (6.4-8.2) g/dL Albumin (3.4-5.0) g/dL Globulin (2.3-3.5) g/dL Albumin/Globulin Ratio (1.2-2.2) Blood Type Gel Antibody Screen Crossmatch ANTHONY Results - Last 24 hrs: Microbiology 06/12/17 06:50 Gram Stain - Final Peritoneal Fluid Body Fluid Culture - Final NO GROWTH AFTER 3 DAYS Med Orders - Current: Current Medications Bumetanide (Bumex) 1 mg PO BIDDIURETIC [facility] Last Admin: 06/16/17 08:21 Dose: 1 mg Ciprofloxacin (Ciprofloxacin Hcl) 500 mg PO BIDAC [facility] Last Admin: 06/16/17 08:20 Dose: 500 mg Clindamycin HCl (Cleocin) 450 mg PO Q6H [facility] Last Admin: 06/16/17 08:21 Dose: 450 mg Magnesium Sulfate 2 gm/ Premix 50 mls @ 25 mls/hr IV Q6H [facility] Stop: 06/17/17 05:59 Last Admin: 06/16/17 03:53 Dose: 25 mls/hr Lactulose (Chronulac) 15 gm PO BID [facility] Last Admin: 06/16/17 08:21 Dose: 15 gm Magnesium Oxide (Magnesium Oxide) 400 mg PO BID [facility] Last Admin: 06/16/17 08:22 Dose: 400 mg Melatonin (Melatonin) 6 mg PO BEDTIME PRN PRN Reason: Insomnia Last Admin: 06/15/17 22:05 Dose: 6 mg Mineral Oil/White Petrolatum (Hydrophor Oint) 0 gm TOP BID DAVID Last Admin: 06/16/17 08:22 Dose: 1 applic Oxycodone HCl (Oxycodone) 5 mg PO Q4H PRN PRN Reason: PAIN Last Admin: 06/16/17 02:07 Dose: 5 mg Pantoprazole Sodium (Protonix) 40 mg PO ACBREAKFAST [facility] Last Admin: 06/16/17 08:20 Dose: 40 mg Spironolactone (Aldactone) 50 mg PO BIDDIURETIC [facility] Last Admin: 06/16/17 08:20 Dose: 50 mg Tamsulosin HCl (Flomax) 0.4 mg PO BEDTIME [facility] Last Admin: 06/15/17 20:06 Dose: 0.4 mg Discontinued Medications Albuterol/Ipratropium (Duoneb 3.0-0.5 Mg/3 Ml) 3 ml NEB ONETIME STA Stop: 06/09/17 21:54 Last Admin: 06/09/17 22:00 Dose: 3 ml Bumetanide (Bumex) 2 mg IVPUSH Q12H [facility] Last Admin: 06/14/17 06:42 Dose: Not Given Bumetanide (Bumex) 1 mg IVPUSH BIDDIURETIC [facility] Last Admin: 06/15/17 15:22 Dose: Not Given Bupivacaine HCl (Marcaine 0.5%) Confirm Administered Dose 50 ml .ROUTE .STK-MED ONE Stop: 06/03/17 12:26 Last Admin: 06/03/17 12:24 Dose: 5 ml Furosemide (Lasix) 40 mg PO BIDDIURETIC [facility] Last Admin: 06/09/17 07:42 Dose: 40 mg Furosemide (Lasix) 40 mg IVPUSH Q12H [facility] Last Admin: 06/11/17 07:34 Dose: 40 mg Furosemide 40 mg/ Furosemide (20 mg) 60 mg IV Q12H [facility] Last Admin: 06/12/17 08:07 Dose: 60 mg Hydrocortisone Sodium Succinate (Solu-Cortef) 100 mg IVPUSH ONETIME ONE Stop: 06/03/17 04:03 Last Admin: 06/03/17 04:48 Dose: 100 mg Dextrose/Lactated Ringer's (Dextrose 5%-Lactated Ringers) 1,000 mls @ 100 mls/ hr IV ASDIRECTED DAVID Last Admin: 06/02/17 15:03 Dose: 100 mls/hr Linezolid 600 mg/ Premix 300 mls @ 300 mls/hr IV Q12H [facility] Last Admin: 06/05/17 03:32 Dose: 300 mls/hr Lactated Ringer's (Ringers, Lactated) 500 mls @ 500 mls/hr IV BOLUS ONE Stop: 06/02/17 16:58 Last Admin: 06/02/17 16:10 Dose: 500 mls/hr Dextrose/Lactated Ringer's (Dextrose 5%-Lactated Ringers) 1,000 mls @ 150 mls/ hr IV ASDIRECTED DAVID Last Admin: 06/03/17 05:08 Dose: 150 mls/hr Sodium Chloride (Normal Saline) 1,000 mls @ 999 mls/hr IV .BOLUS ONE Stop: 06/02/17 21:06 Last Admin: 06/02/17 20:10 Dose: 999 mls/hr Sodium Chloride (Normal Saline) 1,000 mls @ 999 mls/hr IV .BOLUS ONE Stop: 06/02/17 22:08 Last Admin: 06/02/17 21:14 Dose: 999 mls/hr Lactated Ringer's (Ringers, Lactated) 1,000 mls @ 500 mls/hr IV ASDIRECTED DAVID Stop: 06/03/17 02:30 Last Admin: 06/03/17 00:43 Dose: 500 mls/hr Sodium Chloride (Normal Saline) 1,000 mls @ 1,000 drops/min IV .BOLUS ONE Stop: 06/03/17 02:54 Last Admin: 06/03/17 04:31 Dose: 1,000 drops/min Norepinephrine Bitartrate 4 mg (/ Dextrose/Water) 250 mls @ 7.5 mls/hr IV TITRATE DAVID; 2 MCG/MIN PRN Reason: Protocol Last Titration: 06/04/17 08:19 Dose: 0 mcg/min, 0 mls/hr Sodium Chloride (Normal Saline) 500 mls @ 999 mls/hr IV BOLUS DAVID Stop: 06/03/17 04:46 Last Admin: 06/03/17 04:20 Dose: 999 mls/hr Dextrose/Water (Dextrose 5% In Water) Confirm Administered Dose 250 mls @ as directed .ROUTE .STK-MED ONE Stop: 06/03/17 04:11 Last Admin: 06/03/17 04:29 Dose: Not Given Meropenem 500 mg/ Sodium (Chloride) 100 mls @ 200 mls/hr IV Q8H [facility] Last Admin: 06/03/17 05:42 Dose: 200 mls/hr Sodium Chloride (Normal Saline) 1,000 mls @ 999 mls/hr IV .BOLUS ONE Stop: 06/03/17 07:36 Last Admin: 06/03/17 06:44 Dose: 999 mls/hr Sodium Chloride (Normal Saline) 1,000 mls @ 500 mls/hr IV ASDIRECTED [facility] Last Admin: 06/03/17 07:00 Dose: 500 mls/hr Meropenem 500 mg/ Sodium (Chloride) 50 mls @ 100 mls/hr IV Q8HR [facility] Last Admin: 06/05/17 05:13 Dose: 100 mls/hr Magnesium Sulfate 2 gm/ Premix 50 mls @ 25 mls/hr IV Q6HR [facility] Stop: 06/06/17 05:59 Last Admin: 06/06/17 04:22 Dose: 25 mls/hr Linezolid (Zyvox) Confirm Administered Dose 100 mls @ as directed .ROUTE .STK- MED ONE Stop: 06/03/17 10:05 Sodium Chloride (Normal Saline) 1,000 mls @ 300 mls/hr IV ASDIRECTED [facility] Last Admin: 06/03/17 14:07 Dose: 300 mls/hr Dextrose/Lactated Ringer's (Dextrose 5%-Lactated Ringers) 1,000 mls @ 100 mls/ hr IV ASDIRECTED [facility] Last Admin: 06/03/17 14:07 Dose: 100 mls/hr Albumin Human (Albumin 25%) 25 gm in 100 mls @ 25 mls/hr IV Q24H [facility] Stop: 06/06/17 17:59 Last Admin: 06/06/17 15:19 Dose: 25 mls/hr Albumin Human (Albumin 25%) 25 gm in 100 mls @ 25 mls/hr IV Q24H [facility] Stop: 06/06/17 21:59 Last Admin: 06/06/17 19:25 Dose: 25 mls/hr Sodium Chloride (Normal Saline) 1,000 mls @ 25 mls/hr IV ASDIRECTED DAVID Dextrose/Lactated Ringer's (Dextrose 5%-Lactated Ringers) 1,000 mls @ 100 mls/ hr IV ASDIRECTED [facility] Last Admin: 06/04/17 01:09 Dose: 100 mls/hr Potassium Acetate 20 meq/ (Dextrose/Sodium Chloride) 1,010 mls @ 150 mls/hr IV .Q6H44M [facility] Last Admin: 06/05/17 07:20 Dose: 150 mls/hr Phytonadione 10 mg/ Sodium (Chloride) 51 mls @ 51 mls/hr IV ONETIME ONE Stop: 06/04/17 09:59 Last Admin: 06/04/17 09:04 Dose: 51 mls/hr Clindamycin Phosphate 900 mg/ (Sodium Chloride) 106 mls @ 212 mls/hr IV Q8H [facility] Last Admin: 06/09/17 16:45 Dose: 212 mls/hr Ciprofloxacin/Dextrose 400 mg/ (Premix) 200 mls @ 200 mls/hr IV Q12H [facility] Last Admin: 06/09/17 21:43 Dose: 200 mls/hr Potassium Phosphate 30 mmole/Lidocaine HCl 3 ml/ Sodium Chloride 263 mls @ 66 mls/hr IV Q4H [facility] Stop: 06/05/17 17:59 Last Admin: 06/05/17 13:36 Dose: 66 mls/hr Potassium Acetate 20 meq/ (Dextrose/Sodium Chloride) 1,010 mls @ 100 mls/hr IV ASDIRECTED [facility] Last Admin: 06/08/17 04:45 Dose: 100 mls/hr Albumin Human (Albumin 25%) 25 gm in 100 mls @ 25 mls/hr IV Q24H [facility] Stop: 06/10/17 17:59 Last Admin: 06/10/17 13:32 Dose: 25 mls/hr Albumin Human (Albumin 25%) 25 gm in 100 mls @ 25 mls/hr IV Q24H [facility] Stop: 06/10/17 21:59 Last Admin: 06/10/17 18:02 Dose: 25 mls/hr Sodium Chloride (Normal Saline) 80 mls @ 3 mls/sec IV ASDIRECTED [facility] Last Admin: 06/09/17 23:53 Dose: 3 mls/sec Aztreonam 1 gm/ Sodium (Chloride) 100 mls @ 200 mls/hr IV Q8HR [facility] Last Admin: 06/10/17 05:51 Dose: 200 mls/hr Meropenem 1 gm/ Sodium (Chloride) 100 mls @ 200 mls/hr IV Q8H [facility] Last Admin: 06/10/17 01:56 Dose: 200 mls/hr Vancomycin HCl 1.75 gm/ Sodium (Chloride) 500 mls @ 250 mls/hr IV Q12H [facility] Last Admin: 06/10/17 02:46 Dose: 250 mls/hr Aztreonam/Dextrose 1 gm/ (Premix) 50 mls @ 100 mls/hr IV Q8HR [facility] Last Admin: 06/12/17 05:04 Dose: 100 mls/hr Meropenem 1 gm/ Sodium (Chloride) 100 mls @ 200 mls/hr IV Q8H [facility] Last Admin: 06/13/17 11:03 Dose: 200 mls/hr Vancomycin HCl 1.8 gm/ Sodium (Chloride) 250 mls @ 167 mls/hr IV Q12H [facility] Last Admin: 06/11/17 02:42 Dose: 167 mls/hr Magnesium Sulfate 2 gm/ Premix 50 mls @ 25 mls/hr IV ONETIME ONE Stop: 06/10/17 11:59 Last Admin: 06/10/17 09:15 Dose: 25 mls/hr Linezolid 600 mg/ Premix 300 mls @ 300 mls/hr IV ONETIME ONE Stop: 06/11/17 06:43 Last Admin: 06/11/17 05:56 Dose: 300 mls/hr Linezolid (Zyvox) Confirm Administered Dose 300 mls @ as directed .ROUTE .STK- MED ONE Stop: 06/11/17 05:46 Last Admin: 06/11/17 05:57 Dose: Not Given Vancomycin HCl 1.8 gm/ Sodium (Chloride) 250 mls @ 167 mls/hr IV Q12H [facility] Last Admin: 06/12/17 03:04 Dose: 167 mls/hr Linezolid 600 mg/ Premix 300 mls @ 300 mls/hr IV ONETIME ONE Stop: 06/12/17 06:59 Last Admin: 06/12/17 06:16 Dose: 300 mls/hr Clindamycin Phosphate 600 mg/ (Sodium Chloride) 54 mls @ 100 mls/hr IV Q8H [facility] Last Admin: 06/13/17 12:06 Dose: 100 mls/hr Clindamycin Phosphate 600 mg/ (Sodium Chloride) 54 mls @ 100 mls/hr IV Q8H [facility] Last Admin: 06/15/17 14:00 Dose: 100 mls/hr Ciprofloxacin/Dextrose 400 mg/ (Premix) 200 mls @ 200 mls/hr IV Q12H [facility] Last Admin: 06/15/17 03:14 Dose: 200 mls/hr Iopamidol (Isovue-370 (76%)) 100 ml IV . DIRECTED [facility] Last Admin: 06/09/17 23:54 Dose: 100 ml Lactulose (Chronulac) 10 gm PO ONETIME ONE Stop: 06/07/17 15:01 Last Admin: 06/07/17 14:54 Dose: 10 gm Lactulose (Chronulac) 15 gm PO BID [facility] Last Admin: 06/10/17 09:13 Dose: 15 gm Lidocaine HCl (Xylocaine 2% Jelly) 10 ml MUCMEM ONETIME ONE Stop: 06/02/17 20:19 Last Admin: 06/02/17 20:37 Dose: 10 ml Lidocaine HCl (Xylocaine 2% Jelly) 10 ml MUCMEM ONETIME ONE Stop: 06/10/17 00:48 Last Admin: 06/10/17 01:56 Dose: 10 ml Lidocaine/Epinephrine (Xylocaine 1% With Epinephrine 1:100,000) Confirm Administered Dose 50 ml .ROUTE .STK-MED ONE Stop: 06/03/17 12:26 Last Admin: 06/03/17 12:24 Dose: 5 ml Lidocaine/Epinephrine (Xylocaine 1% With Epinephrine 1:100,000) 0 ml INFILT ONETIME ONE Stop: 06/15/17 09:01 Last Admin: 06/15/17 08:50 Dose: 1 ml Linezolid (Zyvox) 200 mg IRR .STK-MED ONE Stop: 06/03/17 12:28 Last Admin: 06/03/17 12:27 Dose: 200 mg Lisinopril (Prinivil) 10 mg PO DAILY [facility] Meropenem (Merrem) Confirm Administered Dose 500 mg .ROUTE .STK-MED ONE Stop: 06/03/17 10:05 Last Admin: 06/03/17 12:27 Dose: 500 mg Pantoprazole Sodium (Protonix Iv) 40 mg IV Q24H [facility] Last Admin: 06/04/17 15:12 Dose: 40 mg Propofol (Diprivan 20 Ml) Confirm Administered Dose 200 mg .ROUTE .STK-MED ONE Stop: 06/03/17 12:08 Sodium Chloride (Saline Flush) 10 ml FLUSH ASDIRECTED PRN PRN Reason: Keep Vein Open Spironolactone (Aldactone) 25 mg PO BIDDIURETIC [facility] Last Admin: 06/12/17 08:08 Dose: 25 mg Spironolactone (Aldactone) 25 mg PO ONETIME ONE Stop: 06/12/17 09:46 Last Admin: 06/12/17 09:50 Dose: 25 mg Tramadol HCl (Ultram) 0 mg PO Q4H PRN PRN Reason: PAIN Vancomycin HCl (Vancomycin) 1 gm IV .PHARMACY TO DOSE [facility] Stop: 06/10/17 08:00 Vancomycin HCl (Vancomycin) Confirm Administered Dose 2,000 mg .ROUTE .STK-MED ONE Stop: 06/10/17 02:29 Last Admin: 06/10/17 02:47 Dose: Not Given - Exam Quality Assessment: Denies: Supplemental Oxygen General: Reports: Alert, Oriented, Cooperative, No Acute Distress HEENT: Reports: Scleral Icterus Lungs: Reports: Normal Respiratory Effort Cardiovascular: Reports: Regular Rhythm, Tachycardia GI/Abdominal Exam: Soft, Non-Tender, Distended (mild) Extremities: Pedal Edema (pitting edema both legs to the waist) Skin: Reports: Warm, Dry Psy/Mental Status: Reports: Alert, Normal Affect *Q Meaningful Use (DIS) - VTE *Q VTE Criteria *Q: - Stroke *Q Stroke Criteria *Q: - AMI *Q AMI Criteria *Q:
[2017-06-16 12:06] VITALS: BP 94/46
--- NOTE | 2017-06-16 16:08 | PN ---
DATE OF SERVICE: 06/15/2017 The patient has been afebrile with stable vital signs. Has been quite a bit of leaking from the paracentesis sites where the sutures were removed yesterday and we will stitch those up once again today. We will try to use a fine stitch as it has lost propensity there and the skin leaking with it. Otherwise, his magnesium was somewhat low. His bilirubin was not checked today. We will recheck that tomorrow and we will supplement the magnesium . We will probably repeat the paracentesis either tomorrow or the next day to see if there is any remaining gram positive organisms present in the peritoneal fluid. Bimal Kramer MD /[id number]
== END 2017-06-16 13:45 | disposition home health service (06) | DRG 853 ==
LOC: JP.2SS 13:48 → JP.ICU 06-03 02:41 → JP.2SS 06-05 13:30 → JP.ICU 06-10 00:13 → JP.2SS 06-12 11:40
PROVIDERS: ADMIT Surgery; ATTEND Hospitalist
PROC: 0WPG0JZ Removal of Synthetic Substitute from Peritoneal Cavity, Open Approach (ICD-10-PCS; principal; 2017-06-03)
PROC: 0JQ80ZZ Repair Abdomen Subcutaneous Tissue and Fascia, Open Approach (ICD-10-PCS; 2017-06-03)
PROC: 30233N1 Transfusion of Nonautologous Red Blood Cells into Peripheral Vein, Percutaneous Approach (ICD-10-PCS; 2017-06-03)
PROC: 0W9G3ZX Drainage of Peritoneal Cavity, Percutaneous Approach, Diagnostic (ICD-10-PCS; 2017-06-07)
PROC: 0W9G3ZX Drainage of Peritoneal Cavity, Percutaneous Approach, Diagnostic (ICD-10-PCS; 2017-06-11)
PROC: 3E0 Administration, Physiological Systems and Anatomical Regions, Introduction (ICD-10-PCS; 2017-06-11)
PROC: 0W9G3ZX Drainage of Peritoneal Cavity, Percutaneous Approach, Diagnostic (ICD-10-PCS; 2017-06-12)
PROC: 3E0 Administration, Physiological Systems and Anatomical Regions, Introduction (ICD-10-PCS; 2017-06-12)
PROC: 30233N1 Transfusion of Nonautologous Red Blood Cells into Peripheral Vein, Percutaneous Approach (ICD-10-PCS; 2017-06-15)
DX: A41.01 Sepsis due to Methicillin susceptible Staphylococcus aureus (principal); R65.21 Severe sepsis with septic shock; N17.9 Acute kidney failure, unspecified; T81.31XA Disruption of external operation (surgical) wound, not elsewhere classified, initial encounter; D62 Acute posthemorrhagic anemia; R18.8 Other ascites; E87.1 Hypo-osmolality and hyponatremia; E87.3 Alkalosis; D68.9 Coagulation defect, unspecified; Y82.8 Other medical devices associated with adverse incidents; Y92.009 Unspecified place in unspecified non-institutional (private) residence as the place of occurrence of the external cause; I95.9 Hypotension, unspecified; T14.8XXA Other injury of unspecified body region, initial encounter; K72.90 Hepatic failure, unspecified without coma; K74.60 Unspecified cirrhosis of liver; R60.1 Generalized edema; E87.6 Hypokalemia; R06.03 Acute respiratory distress; R00.0 Tachycardia, unspecified; I10 Essential (primary) hypertension; K21.9 Gastro-esophageal reflux disease without esophagitis; M54.9 Dorsalgia, unspecified; G89.29 Other chronic pain; M19.90 Unspecified osteoarthritis, unspecified site; Z98.1 Arthrodesis status; Z98.84 Bariatric surgery status; D69.6 Thrombocytopenia, unspecified; M25.522 Pain in left elbow
CPT/HCPCS: 36415; 36430; 36600; 51702; 71275; 80048; 80053; 80202; 81001; 82140; 82803; 83605; 83735; 83880; 84100; 84484; 85025; 85027; 85379; 85610; 85730; 86850; 86900; 86901; 86920; 86922; 87040; 87070; 87075; 87077; 87086; 87088; 87186; 87205; 93005; 94640; 94660; 97110-GP; 97162-GP; 97530-GP; A9270-GY; C9113; J0744; J1720; J1940; J2020; J2185; J2704; J3370; J3430; J3475; J3490; J7030; J7040; J7042; J7050; J7060; J7120; J7620; P9016; P9047; Q9967; S0073; S0077; S0171

== ENCOUNTER 2017-06-20 08:10 | Emergency (ER) | payer MEDICARE, MEDICAID ==
[2017-06-20 08:34] VITALS: BP 106/54
[2017-06-20] MEDS ORDERED: Sodium Chloride 0.9% 10 ML Syringe FLUSH PRN (08:44)
[2017-06-20] MEDS ORDERED: Bumetanide 1 MG/4 ML MDV IVPUSH ONE (08:45)
--- NOTE | 2017-06-20 08:46 | EDM.PDOC ---
ED HPI GENERAL MEDICAL PROBLEM - General Chief Complaint: Genitourinary Problem Stated Complaint: SWELLING Time Seen by Provider: 06/20/17 08:39 Source of Information: Reports: Patient History Limitations: Reports: No Limitations - History of Present Illness INITIAL COMMENTS - FREE TEXT/NARRATIVE: 52-year-old male who was just discharged from the hospital 4 days ago has developed increasing lower extremity edema, scrotal and penile edema and increasing difficulty ambulating and getting up and down from a chair and in and out of bed because of the edema. He's been taking his medications as directed and his been avoiding extra salt. He has no shortness of breath, chest pain, fevers or chills and he is able to pass his urine without obstruction. He had some scrotal and penile edema on discharge and was told to come back if worsening, it's much worse. Onset: Gradual Location: Reports: Abdomen, Pelvis (Including external genitalia), Lower Extremity, Left, Lower Extremity, Right Severity: Moderate Associated Symptoms: Reports: Weakness. Denies: Chest Pain, Fever/Chills, Nausea/Vomiting, Shortness of Breath - Related Data Allergies Allergy/AdvReac Type Severity Reaction Status Date / Time No Known Allergies Allergy Verified 06/20/17 08:27 Home Meds: Home Meds Ranitidine [Zantac] 150 mg PO DAILY 04/24/17 [History] Bumetanide [Bumex] 1 mg PO BIDDIURETIC #60 tablet 06/16/17 [Rx] Ciprofloxacin [Ciprofloxacin HCl] 500 mg PO BID #9 tablet 06/16/17 [Rx] Lactulose [Chronulac] 15 gm PO DAILY #30 cup 06/16/17 [Rx] Magnesium Oxide 400 mg PO BID #60 tablet 06/16/17 [Rx] Spironolactone 50 mg PO BID #60 tablet 06/16/17 [Rx] Tamsulosin [Flomax] 0.4 mg PO BEDTIME #30 cap.er 06/16/17 [Rx] oxyCODONE 5 mg PO Q4H PRN #20 tablet 06/16/17 [Rx] Past Medical History HEENT History: Reports: Impaired Vision Other HEENT History: glasses Cardiovascular History: Reports: Hypertension Respiratory History: Reports: None Gastrointestinal History: Reports: Gastritis, GERD Genitourinary History: Reports: Renal Calculus Musculoskeletal History: Reports: Back Pain, Chronic, Fracture, Neck Pain, Chronic, Osteoarthritis, Other (See Below) Other Musculoskeletal History: Crushed disc in lumbar area neck fusion aprox 3 weeks ago. Neurological History: Reports: Brain Injury, Concussion, Head Trauma Psychiatric History: Reports: None Endocrine/Metabolic History: Reports: Obesity/BMI 30+ Hematologic History: Reports: Blood Transfusion(s) Immunologic History: Reports: None Oncologic (Cancer) History: Reports: None Dermatologic History: Reports: None - Infectious Disease History Infectious Disease History: Reports: Chicken Pox - Past Surgical History Head Surgeries/Procedures: Reports: Other (See Below) HEENT Surgical History: Reports: None Cardiovascular Surgical History: Reports: None Respiratory Surgical History: Reports: None GI Surgical History: Reports: Bariatric Procedure, Cholecystectomy, Colonoscopy , EGD, Other (See Below) Other GI Surgeries/Procedures: paracentesis Endocrine Surgical History: Reports: None Neurological Surgical History: Reports: Other (See Below) Other Neurological Surgeries/Procedures: "neck surgery" Other Musculoskeletal Surgeries/Procedures:: Pins in left hip and right wrist Oncologic Surgical History: Reports: None Dermatological Surgical History: Reports: None Social & Family History - Family History Family Medical History: Noncontributory - Tobacco Use Smoking Status *Q: Never Smoker Second Hand Smoke Exposure: No - Caffeine Use Caffeine Use: Reports: Coffee, Soda, Tea - Alcohol Use Days Per Week of Alcohol Use: 0 Number of Drinks Per Day: 2 Total Drinks Per Week: 0 - Recreational Drug Use Recreational Drug Use: No ED ROS GENERAL - Review of Systems Review Of Systems: See Below Constitutional: Reports: Malaise, Weakness. Denies: Fever, Chills HEENT: Reports: No Symptoms Respiratory: Denies: Shortness of Breath, Cough Cardiovascular: Denies: Chest Pain Endocrine: Reports: Fatigue GI/Abdominal: Denies: Abdominal Pain : Reports: Other (Tightness and swelling through the external genitalia) Skin: Reports: Other (Brian and jaundiced appearing complexion) Neurological: Denies: Headache ED EXAM, GENERAL - Physical Exam Exam: See Below Exam Limited By: No Limitations General Appearance: Alert, No Apparent Distress Respiratory/Chest: No Respiratory Distress, Lungs Clear Cardiovascular: Regular Rate, Rhythm GI/Abdominal: Soft, Other (Lower abdomen is firm with edema, no significant tenderness) (Male) Exam: Other (Diffuse scrotal and perineal edema is present. Penis is completely embedded in edematous soft tissue) Extremities: Other (Tense bilateral lower extremity pitting edema) Neurological: Alert, Oriented Skin Exam: Jaundice Course - Vital Signs Last Recorded V/S: Last Vital Signs Temp 97.6 F 06/20/17 08:32 Pulse 96 06/20/17 08:32 Resp 14 06/20/17 08:32 BP 106/54 L 06/20/17 09:42 Pulse Ox 98 06/20/17 08:32 - Orders/Labs/Meds Labs: Laboratory Tests 06/20/17 06/20/17 Range/Units 09:00 09:00 WBC 6.9 (4.5-11.0) K/uL RBC 2.65 L (4.30-5.90) M/uL Hgb 8.6 L (12.0-15.0) g/dL Hct 25.6 L (40.0-54.0) % MCV 97 (80-98) fL MCH 33 H (27-31) pg MCHC 34 (32-36) % Plt Count 86 L (150-400) K/uL Neut % (Auto) 59 (36-66) % Lymph % (Auto) 13 L (24-44) % [place] % (Auto) 13 H (2-6) % Eos % (Auto) 15 H (2-4) % Baso % (Auto) 1 (0-1) % Sodium 128 L (140-148) mmol/L Potassium 4.7 (3.6-5.2) mmol/L Chloride 97 L (100-108) mmol/L Carbon Dioxide 24 (21-32) mmol/L Anion Gap 11.7 (5.0-14.0) mmol/L BUN 19 H D (7-18) mg/dL Creatinine 2.5 H D (0.8-1.3) mg/dL Est Cr Clr Drug Dosing 35.28 mL/min Estimated GFR (MDRD) 27 L (>60) Glucose 93 (74-106) mg/dL Calcium 7.5 L (8.5-10.1) mg/dL Total Bilirubin 4.5 H (0.2-1.0) mg/dL AST 50 H (15-37) U/L ALT 26 (12-78) U/L Alkaline Phosphatase 130 H (46-116) U/L Total Protein 5.7 L (6.4-8.2) g/dL Albumin 2.1 L (3.4-5.0) g/dL Globulin 3.6 H (2.3-3.5) g/dL Albumin/Globulin Ratio 0.6 L (1.2-2.2) Meds: Medications Discontinued Medications Generic Name Dose Route Start Last Admin Trade Name Freq PRN Reason Stop Dose Admin Bumetanide 1 mg 06/20/17 08:45 06/20/17 09:42 Bumex IVPUSH 06/20/17 08:46 1 mg ONETIME ONE Administration Sodium Chloride 10 ml 06/20/17 08:44 06/20/17 09:43 Saline Flush FLUSH 10 ml ASDIRECTED PRN Administration Keep Vein Open - Re-Assessments/Exams Free Text/Narrative Re-Assessment/Exam: 06/20/17 08:50 An IV was started and the patient was given 1 mg of IV Bumex. CBC and CMP were obtained to check for renal function and electrolytes status. Creatinine 2.5, GFR 27. These were normal on discharge. Bilirubin 4.5. Findings discussed with Dr. Day, it was felt the patient would benefit from referral for more comprehensive eval by nephrology and gastroenterology in [place] , patient transferred to [facility] Departure - Departure Time of Disposition: 10:56 Disposition: DC/Tfer to Acute Hospital 02 Condition: Poor Clinical Impression: End stage liver disease, Anasarca Acute renal failure Qualifiers: Acute renal failure type: with acute tubular necrosis Qualified Code(s): N17.0 - Acute kidney failure with tubular necrosis - Discharge Information Referrals: John Villalobos MD [Primary Care Provider] - Forms: ED Department Discharge
== END 2017-06-20 10:57 ==
LOC: JP.ED 08:10
DX: K72.90 Hepatic failure, unspecified without coma (principal); N17.0 Acute kidney failure with tubular necrosis; I10 Essential (primary) hypertension; E66.9 Obesity, unspecified; Z79.899 Other long term (current) drug therapy
CPT/HCPCS: 36415; 80053; 85025; 96374; 99284; J7050; S0171

== ENCOUNTER 2017-07-05 00:38 | Emergency (ER) | payer MEDICARE, MEDICAID ==
[2017-07-05] MEDS ORDERED: 50% Dextrose in Water 50 ML Syringe IVPUSH ONE ×2 (00:48→01:22)
--- NOTE | 2017-07-05 00:54 | EDM.PDOC ---
ED HPI GENERAL MEDICAL PROBLEM - General Chief Complaint: General Stated Complaint: MEDICAL VIA [facility] Time Seen by Provider: 07/05/17 00:40 Source of Information: Reports: EMS, Family, Old Records History Limitations: Reports: Other (patient not initially able to offer any history) - History of Present Illness INITIAL COMMENTS - FREE TEXT/NARRATIVE: 52 yo male with chronic hepatic failure presents with decreased mentation/LOC. Family says he was not himself all day. Had refused ambulance transfer to the ER earlier tonight. Is reportedly not diabetic. EMS noted hypotension and hypoglycemia en route. 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 - Related Data Allergies Allergy/AdvReac Type Severity Reaction Status Date / Time No Known Allergies Allergy Verified 06/20/17 08:27 Home Meds: Home Meds Ranitidine [Zantac] 150 mg PO DAILY 04/24/17 [History] Bumetanide [Bumex] 1 mg PO BIDDIURETIC #60 tablet 06/16/17 [Rx] Ciprofloxacin [Ciprofloxacin HCl] 500 mg PO BID #9 tablet 06/16/17 [Rx] Lactulose [Chronulac] 15 gm PO DAILY #30 cup 06/16/17 [Rx] Magnesium Oxide 400 mg PO BID #60 tablet 06/16/17 [Rx] Spironolactone 50 mg PO BID #60 tablet 06/16/17 [Rx] Tamsulosin [Flomax] 0.4 mg PO BEDTIME #30 cap.er 06/16/17 [Rx] oxyCODONE 5 mg PO Q4H PRN #20 tablet 06/16/17 [Rx] Past Medical History HEENT History: Reports: Impaired Vision Other HEENT History: glasses Cardiovascular History: Reports: Hypertension Respiratory History: Reports: None Gastrointestinal History: Reports: Gastritis, GERD Genitourinary History: Reports: Renal Calculus Musculoskeletal History: Reports: Back Pain, Chronic, Fracture, Neck Pain, Chronic, Osteoarthritis, Other (See Below) Other Musculoskeletal History: Crushed disc in lumbar area neck fusion aprox 3 weeks ago. Neurological History: Reports: Brain Injury, Concussion, Head Trauma Psychiatric History: Reports: None Endocrine/Metabolic History: Reports: Obesity/BMI 30+ Hematologic History: Reports: Blood Transfusion(s) Immunologic History: Reports: None Oncologic (Cancer) History: Reports: None Dermatologic History: Reports: None - Infectious Disease History Infectious Disease History: Reports: Chicken Pox - Past Surgical History Head Surgeries/Procedures: Reports: Other (See Below) HEENT Surgical History: Reports: None Cardiovascular Surgical History: Reports: None Respiratory Surgical History: Reports: None GI Surgical History: Reports: Bariatric Procedure, Cholecystectomy, Colonoscopy , EGD, Other (See Below) Other GI Surgeries/Procedures: paracentesis Endocrine Surgical History: Reports: None Neurological Surgical History: Reports: Other (See Below) Other Neurological Surgeries/Procedures: "neck surgery" Other Musculoskeletal Surgeries/Procedures:: Pins in left hip and right wrist Oncologic Surgical History: Reports: None Dermatological Surgical History: Reports: None Social & Family History - Family History Family Medical History: Noncontributory - Tobacco Use Smoking Status *Q: Never Smoker Second Hand Smoke Exposure: No - Caffeine Use Caffeine Use: Reports: Coffee, Soda, Tea - Alcohol Use Days Per Week of Alcohol Use: 0 Number of Drinks Per Day: 2 Total Drinks Per Week: 0 - Recreational Drug Use Recreational Drug Use: No ED ROS GENERAL - Review of Systems Review Of Systems: Unable To Obtain (due to decreased LOC) ED EXAM, GENERAL - Physical Exam Exam: See Below Exam Limited By: No Limitations General Appearance: WD/WN, No Apparent Distress, Obese (truncal obesity) Eye Exam: Bilateral Eye: Other (scleral icterus) Ears: Normal External Exam, Normal Canal, Hearing Grossly Normal Ear Exam: Bilateral Ear: Auricle Normal, Canal Normal Nose: Normal Inspection, Normal Mucosa, No Blood Throat/Mouth: Other (dry lips and oral mucosa) Head: Atraumatic, Normocephalic Neck: Normal Inspection Respiratory/Chest: No Respiratory Distress, Lungs Clear, Normal Breath Sounds, No Accessory Muscle Use Cardiovascular: Regular Rate, Rhythm, Tachycardia (mildly tachy) GI/Abdominal: Soft, Other (ascites) (Male) Exam: Scrotal Swelling, Other (glans of the penis is retracted about 4 inches within the scrotum, unable to pass a [place] because of this.) Extremities: Pedal Edema (bilateral pitting edema of the LE's) Neurological: Alert, Oriented, CN II-XII Intact, Normal Cognition, No Motor/ Sensory Deficits Psychiatric: Depressed Mood, Flat Affect, Other (confused) Skin Exam: Warm, Dry, Intact, No Rash, Jaundice Lymphatic: No Adenopathy Course - Vital Signs Last Recorded V/S: Last Vital Signs Temp 36.8 C 07/05/17 00:47 Pulse 104 H 07/05/17 01:30 Resp 26 H 07/05/17 01:30 BP 108/42 L 07/05/17 01:30 Pulse Ox 96 07/05/17 01:30 - Orders/Labs/Meds Orders: Active Orders 24 hr Category Date Time Status Cardiac Monitoring [RC] .As Directed Care 07/05/17 00:45 Active [place] Catheter Insertion [Insert Urinary Catheter] [OM. Care 07/05/17 01:30 Ordered PC] Q24H Urinary Catheter Assessment [RC] ASDIRECTED Care 07/05/17 01:17 Active Head wo Cont [CT] Stat Exams 07/05/17 01:16 Taken CULTURE BLOOD [BC] Stat Lab 07/05/17 01:20 Received CULTURE BLOOD [BC] Stat Lab 07/05/17 01:30 Received UA W/MICROSCOPIC [URIN] Stat Lab 07/05/17 00:44 Uncollected Dextrose 5%-0.9% NaCl [Dextrose 5%-Normal Saline] 1,000 Med 07/05/17 01:30 Active ml IV ASDIRECTED Sodium Chloride 0.9% [Normal Saline] 1,000 ml Med 07/05/17 01:57 Ordered IV .BOLUS cefTRIAXone [Rocephin] 1 gm Med 07/05/17 02:00 Ordered Sodium Chloride 0.9% [Normal Saline] 50 ml IV ONETIME Medication Orders Dextrose/Sodium Chloride (Dextrose 5%-Normal Saline) 1,000 mls @ 150 mls/hr IV ASDIRECTED DAVID Last Admin: 07/05/17 01:30 Dose: 150 mls/hr Sodium Chloride (Normal Saline) 1,000 mls @ 1,000 mls/hr IV .BOLUS ONE Stop: 07/05/17 02:56 Labs: Laboratory Tests 07/05/17 07/05/17 07/05/17 Range/Units 00:45 00:45 00:45 WBC 13.3 H (4.5-11.0) K/uL RBC 2.59 L (4.30-5.90) M/uL Hgb 8.9 L (12.0-15.0) g/dL Hct 26.1 L (40.0-54.0) % MCV 101 H (80-98) fL MCH 34 H (27-31) pg MCHC 34 (32-36) % Plt Count 144 L (150-400) K/uL Sodium 134 L (140-148) mmol/L Potassium 5.6 H (3.6-5.2) mmol/L Chloride 101 (100-108) mmol/L Carbon Dioxide 17 L (21-32) mmol/L Anion Gap 21.6 H (5.0-14.0) mmol/L BUN 33 H D (7-18) mg/dL Creatinine 3.9 H* D (0.8-1.3) mg/dL Est Cr Clr Drug Dosing TNP Estimated GFR (MDRD) 16 L (>60) Glucose 53 L (74-106) mg/dL Lactic Acid (0.4-2.0) mmol/L Calcium 8.0 L (8.5-10.1) mg/dL Total Bilirubin 4.4 H (0.2-1.0) mg/dL AST 52 H (15-37) U/L ALT 21 (12-78) U/L Alkaline Phosphatase 118 H (46-116) U/L Ammonia (11-32) mmol/L Troponin I 0.017 (0.000-0.056) ng/mL Total Protein 6.8 (6.4-8.2) g/dL Albumin 2.6 L (3.4-5.0) g/dL Globulin 4.2 H (2.3-3.5) g/dL Albumin/Globulin Ratio 0.6 L (1.2-2.2) 07/05/17 07/05/17 Range/Units 00:45 01:00 WBC (4.5-11.0) K/uL RBC (4.30-5.90) M/uL Hgb (12.0-15.0) g/dL Hct (40.0-54.0) % MCV (80-98) fL MCH (27-31) pg MCHC (32-36) % Plt Count (150-400) K/uL Sodium (140-148) mmol/L Potassium (3.6-5.2) mmol/L Chloride (100-108) mmol/L Carbon Dioxide (21-32) mmol/L Anion Gap (5.0-14.0) mmol/L BUN (7-18) mg/dL Creatinine (0.8-1.3) mg/dL Est Cr Clr Drug Dosing Estimated GFR (MDRD) (>60) Glucose (74-106) mg/dL Lactic Acid 7.3 H (0.4-2.0) mmol/L Calcium (8.5-10.1) mg/dL Total Bilirubin (0.2-1.0) mg/dL AST (15-37) U/L ALT (12-78) U/L Alkaline Phosphatase (46-116) U/L Ammonia 148 H (11-32) mmol/L Troponin I (0.000-0.056) ng/mL Total Protein (6.4-8.2) g/dL Albumin (3.4-5.0) g/dL Globulin (2.3-3.5) g/dL Albumin/Globulin Ratio (1.2-2.2) Meds: Medications Generic Name Dose Route Start Last Admin Trade Name Freq PRN Reason Stop Dose Admin Dextrose/Sodium Chloride 1,000 mls @ 150 mls/hr 07/05/17 01:30 07/05/17 01:30 Dextrose 5%-Normal Saline IV 150 mls/hr ASDIRECTED DAVID Administration Sodium Chloride 1,000 mls @ 1,000 mls/hr 07/05/17 01:57 Normal Saline IV 07/05/17 02:56 .BOLUS ONE Discontinued Medications Generic Name Dose Route Start Last Admin Trade Name Freq PRN Reason Stop Dose Admin Dextrose/Water 25 ml 07/05/17 00:48 07/05/17 00:38 Dextrose 50% In Water IVPUSH 07/05/17 00:49 25 ml ONETIME ONE Administration Dextrose/Water 25 ml 07/05/17 01:22 07/05/17 01:28 Dextrose 50% In Water IVPUSH 07/05/17 01:23 25 ml ONETIME ONE Administration Sodium Chloride 1,000 mls @ 1,000 mls/hr 07/05/17 01:00 07/05/17 00:51 Normal Saline IV 07/05/17 01:17 1,000 mls/hr ASDIRECTED DAVID Administration - Radiology Interpretation Free Text/Narrative:: No evidence of intracranial bleed per head CT. CT Results Date: 07/05/17 Departure - Departure Time of Disposition: 02:20 Disposition: DC/Tfer to Acute Hospital 02 Condition: Critical Clinical Impression: Hepatorenal failure, Hyperammonemia, Elevated lactic acid level, Hypoglycemia - Discharge Information Referrals: PCP,None [Primary Care Provider] - Forms: ED Department Discharge - My Orders Last 24 Hours: My Active Orders 07/05/17 00:44 UA W/MICROSCOPIC [URIN] Stat 07/05/17 00:45 Cardiac Monitoring [RC] .As Directed 07/05/17 01:16 Head wo Cont [CT] Stat 07/05/17 01:17 Urinary Catheter Assessment [RC] ASDIRECTED 07/05/17 01:20 CULTURE BLOOD [BC] Stat 07/05/17 01:30 [place] Catheter Insertion [Insert Urinary Catheter] [OM.PC] Q24H CULTURE BLOOD [BC] Stat Dextrose 5%-0.9% NaCl [Dextrose 5%-Normal Saline] 1,000 ml IV ASDIRECTED 07/05/17 01:57 Sodium Chloride 0.9% [Normal Saline] 1,000 ml IV .BOLUS 07/05/17 02:00 cefTRIAXone [Rocephin] 1 gm Sodium Chloride 0.9% [Normal Saline] 50 ml IV ONETIME - Assessment/Plan Last 24 Hours: My Active Orders 07/05/17 00:44 UA W/MICROSCOPIC [URIN] Stat 07/05/17 00:45 Cardiac Monitoring [RC] .As Directed 07/05/17 01:16 Head wo Cont [CT] Stat 07/05/17 01:17 Urinary Catheter Assessment [RC] ASDIRECTED 07/05/17 01:20 CULTURE BLOOD [BC] Stat 07/05/17 01:30 [place] Catheter Insertion [Insert Urinary Catheter] [OM.PC] Q24H CULTURE BLOOD [BC] Stat Dextrose 5%-0.9% NaCl [Dextrose 5%-Normal Saline] 1,000 ml IV ASDIRECTED 07/05/17 01:57 Sodium Chloride 0.9% [Normal Saline] 1,000 ml IV .BOLUS 07/05/17 02:00 cefTRIAXone [Rocephin] 1 gm Sodium Chloride 0.9% [Normal Saline] 50 ml IV ONETIME
[2017-07-05] MEDS ORDERED: Sodium Chloride 0.9% 1,000 ML IV SCH (01:00)
[2017-07-05] MEDS ORDERED: Dextrose 5%-0.9% NaCl 1,000 ML IV SCH (01:30)
[2017-07-05] MEDS ORDERED: Sodium Chloride 0.9% 1,000 ML IV ONE (01:57)
[2017-07-05] MEDS ORDERED: cefTRIAXone 1 GM in Sodium Chloride 0.9% 50 ML IV ONE (02:00)
[2017-07-05 02:38] VITALS: BP 117/44
== END 2017-07-05 02:39 ==
LOC: JP.ED 00:38
DX: K76.7 Hepatorenal syndrome (principal); E72.20 Disorder of urea cycle metabolism, unspecified; R74.0 Nonspecific elevation of levels of transaminase and lactic acid dehydrogenase [LDH]; E16.2 Hypoglycemia, unspecified; I10 Essential (primary) hypertension; K21.9 Gastro-esophageal reflux disease without esophagitis; Z98.1 Arthrodesis status; Z79.899 Other long term (current) drug therapy
CPT/HCPCS: 36415; 51702; 51798; 70450; 80053; 82140; 82962; 83605; 84484; 85027; 87040; 87077; 87186; 96361; 96365; 96367; 96375; 96376; 99285; J0696; J7040; J7050

== ENCOUNTER 2017-07-27 11:53 | Emergency (ER) | payer MEDICARE, MEDICAID ==
[2017-07-27 12:09] VITALS: BP 94/43
--- NOTE | 2017-07-27 12:28 | EDM.PDOC ---
ED HPI GENERAL MEDICAL PROBLEM - General Chief Complaint: General Stated Complaint: PIC LINE FELL OUT Time Seen by Provider: 07/27/17 12:23 Source of Information: Reports: Patient, Old Records, RN History Limitations: Reports: No Limitations - History of Present Illness INITIAL COMMENTS - FREE TEXT/NARRATIVE: 52 yo male presents with a request for PICC line replacement. Gets a med via this line every 8 hrs. The line recently fell out. Onset: Today Onset Date: 07/27/17 Duration: Hour(s): Severity: Mild Improves with: Reports: None Worsens with: Reports: None Context: Reports: Other (Recent hospitalization for hepatorenal syndrome, hypoglycemia, elevated ammonia) Associated Symptoms: Reports: No Other Symptoms Treatments [employer] REPRESENTATIVE: Reports: Other (see below) (none) Bilateral Shoulder Pain Score (Numeric/FACES): 5 - Related Data Allergies Allergy/AdvReac Type Severity Reaction Status Date / Time No Known Allergies Allergy Verified 06/20/17 08:27 Home Meds: Home Meds Ranitidine [Zantac] 150 mg PO DAILY 04/24/17 [History] Bumetanide [Bumex] 1 mg PO BIDDIURETIC #60 tablet 06/16/17 [Rx] Lactulose [Chronulac] 15 gm PO DAILY #30 cup 06/16/17 [Rx] Magnesium Oxide 400 mg PO BID #60 tablet 06/16/17 [Rx] Spironolactone 50 mg PO BID #60 tablet 06/16/17 [Rx] Tamsulosin [Flomax] 0.4 mg PO BEDTIME #30 cap.er 06/16/17 [Rx] oxyCODONE 5 mg PO Q4H PRN #20 tablet 06/16/17 [Rx] Furosemide [Furosemide] 60 mg PO DAILY 07/27/17 [History] Temazepam [Temazepam] 15 mg PO BEDTIME PRN 07/27/17 [History] Past Medical History HEENT History: Reports: Impaired Vision Other HEENT History: glasses Cardiovascular History: Reports: Hypertension Respiratory History: Reports: None Gastrointestinal History: Reports: Gastritis, GERD Genitourinary History: Reports: Renal Calculus Musculoskeletal History: Reports: Back Pain, Chronic, Fracture, Neck Pain, Chronic, Osteoarthritis, Other (See Below) Other Musculoskeletal History: Crushed disc in lumbar area neck fusion aprox 3 weeks ago. Neurological History: Reports: Brain Injury, Concussion, Head Trauma Psychiatric History: Reports: None Endocrine/Metabolic History: Reports: Obesity/BMI 30+ Hematologic History: Reports: Blood Transfusion(s) Immunologic History: Reports: None Oncologic (Cancer) History: Reports: None Dermatologic History: Reports: None - Infectious Disease History Infectious Disease History: Reports: Chicken Pox - Past Surgical History Head Surgeries/Procedures: Reports: Other (See Below) HEENT Surgical History: Reports: None Cardiovascular Surgical History: Reports: None Respiratory Surgical History: Reports: None GI Surgical History: Reports: Bariatric Procedure, Cholecystectomy, Colonoscopy , EGD, Other (See Below) Other GI Surgeries/Procedures: paracentesis Endocrine Surgical History: Reports: None Neurological Surgical History: Reports: Other (See Below) Other Neurological Surgeries/Procedures: "neck surgery" Other Musculoskeletal Surgeries/Procedures:: Pins in left hip and right wrist Oncologic Surgical History: Reports: None Dermatological Surgical History: Reports: None Social & Family History - Family History Family Medical History: Noncontributory - Tobacco Use Smoking Status *Q: Former Smoker Used Tobacco, but Quit: No Second Hand Smoke Exposure: No - Caffeine Use Caffeine Use: Reports: Coffee - Alcohol Use Days Per Week of Alcohol Use: 0 Number of Drinks Per Day: 2 Total Drinks Per Week: 0 - Recreational Drug Use Recreational Drug Use: No ED ROS GENERAL - Review of Systems Review Of Systems: See Below Constitutional: Reports: No Symptoms HEENT: Reports: No Symptoms Respiratory: Reports: No Symptoms Cardiovascular: Reports: Edema (bilateral leg edema chronically) Endocrine: Reports: No Symptoms GI/Abdominal: Reports: Other (chronic ascites) : Reports: No Symptoms Musculoskeletal: Reports: No Symptoms Skin: Reports: Jaundice (chronic) Neurological: Reports: No Symptoms Psychiatric: Reports: No Symptoms Hematologic/Lymphatic: Reports: No Symptoms Immunologic: Reports: No Symptoms ED EXAM, GENERAL - Physical Exam Exam: See Below Exam Limited By: No Limitations General Appearance: Alert, WD/WN, No Apparent Distress Ears: Normal External Exam Ear Exam: Bilateral Ear: Auricle Normal Nose: Normal Inspection, Normal Mucosa, No Blood Throat/Mouth: Normal Inspection, Normal Lips, Normal Oropharynx, Normal Voice, No Airway Compromise Head: Atraumatic, Normocephalic Neck: Normal Inspection, Supple, Non-Tender Respiratory/Chest: No Respiratory Distress, Lungs Clear, Normal Breath Sounds, No Accessory Muscle Use Cardiovascular: Regular Rate, Rhythm, No Edema GI/Abdominal: Normal Bowel Sounds, Soft, Non-Tender, Distended, Other (ascites) . No: No Distention Back Exam: Normal Inspection Extremities: Pedal Edema (bilaterally) Neurological: Alert, Oriented, CN II-XII Intact, No Motor/Sensory Deficits Psychiatric: Normal Affect, Normal Mood Skin Exam: Warm, Dry, Intact, No Rash Lymphatic: No Adenopathy Course - Vital Signs Last Recorded V/S: Last Vital Signs Temp 34.3 C L 07/27/17 12:09 Pulse 88 07/27/17 12:09 Resp 16 07/27/17 12:09 BP 94/43 L 07/27/17 12:09 Pulse Ox 99 07/27/17 12:09 Departure - Departure Time of Disposition: 13:51 Disposition: Home, Self-Care 01 Condition: Good Clinical Impression: Status post peripherally inserted central catheter (PICC) central line placement - Discharge Information Referrals: John Villalobos MD [Primary Care Provider] - Forms: ED Department Discharge
== END 2017-07-27 14:26 | disposition home or self-care (01) ==
LOC: JP.ED 11:53
DX: Z45.2 Encounter for adjustment and management of vascular access device (principal); I10 Essential (primary) hypertension; Z87.891 Personal history of nicotine dependence; K21.9 Gastro-esophageal reflux disease without esophagitis; Z79.899 Other long term (current) drug therapy; Z98.890 Other specified postprocedural states
CPT/HCPCS: 99283; C1751